=== PATIENT | female | born 1935 | race Caucasian/White ===

== ENCOUNTER 2016-11-28 05:33 | Emergency (ER) | payer MEDICARE, OTHER ==
[~2016-11-28] VITALS: Ht 162.6 cm; Wt 51.8 kg
[2016-11-28 05:45] VITALS: BP 108/65; PULSE 84; RESP 17; O2SAT 89
--- NOTE | 2016-11-28 06:04 | ED.REPORT ---
HPI-Trauma Minor / Fall Date of Service Nov 28, 2016 ED Provider: Dung Luis MD The patient is a 81 year old female with a hx of GERD who presents to the ED via EMS from [facility] after a ground level fall with a hematoma above the right eyebrow and right elbow. She was getting up in the morning to use the restroom when she tripped and fell over. She does not report of any other associated injuries and did not lose consciousness when she fell. She is able to move all four extremities and does not have any pain. Pt states that she , "didn't want to come here in the first place, but they made her come." She is wearing a neck collar for comfort due to a neck injury she sustained a year ago. She is not on anticoagulants. Nursing Notes Stated Complaint: GLF Chief Complaint: Multiple Trauma/Fall Nursing Notes Reviewed: Yes General Time Seen by MD: 06:03 Chief Complaint Fall Hx Obtained From: Patient Arrived By: Ambulance Onset Occurred: Just prior to arrival Symptom Duration: Since onset Caused by: Fall on ground Context: Occurred at: Home injury Location: Elbow right Severity: Current: No pain currently Recent Healthcare: No recent doctor visit, No recent hospitalization Similar Sx Previous: No Risk Factors Head CT Imaging Inclusion Criteria: >/= 16 yo age GCS of 14 OR 15 Non Pentrating Injury Presentation w/in [address] Indicated For: >/= 60 yrs AgeNo Coagulopathy, No ETOH/Drug Intoxication, No Focal Neuro Deficit, No GCS <15, No Headache, No Post Trauma Seizure, No Post Traumatic Amnesia, No Short Term Memory Loss, No Trauma - Clavicle & Up, No Vomiting, No WITH Loss of Conciousness Past Medical History Past Medical History Reports: GERD Past Surgical History neck fracture and surgery Oct 2015 Smoking History Unknown if Ever Smoker Social History Other Social History: Lives in correction Ambulatory Status Independent Review of Systems Musculoskeletal: Denies: Extremity pain Skin: Reports Bruising (hematoma above right eyebrow and on right upper condyle ) Neurologic: Denies: Change LOC Complete sys rev & neg: except as marked. Physical Exam Initial Vital Signs Vital Signs (First) Date Time Temp Pulse Resp B/P Pulse Ox O2 Delivery O2 Flow Rate FiO2 11/28/16 05:45 36.8 84 17 108/65 89 Room Air Initial VS: Reviewed ENT: Mucous membranes moist, Conjunctiva normal, No scleral icterus Respiratory: Breath sounds normal, Clear to auscultation, No respiratory distress Cardiovascular: Regular rate & rhythm, Heart sounds normal, Intact distal pulses Abdomen / GI: Soft, Non-tender, No guarding, No rebound, No distention Back: No CVA tenderness Skin: Warm, Dry, No cyanosis Neurologic: Alert, Oriented, Nonfocal Psychiatric: Mood/affect normal, Behavior normal, Normal thought content General/Constitutional: Awake, Alert, Well appearing, Cooperative, Not toxic appearing oriented Neck: Atraumatic, No swelling, Non-tender neck collar from a neck fracture/injury she sustained in October 2015 Head / Eyes: Normocephalic, PERRL, EOMI hematoma above right eyebrow Upper Extremity / MS: Full range of motion, No swelling, Non-tender hematoma on right upper condyle with normal ROM Re-Eval/Medical Decision Counseled Regarding: Diagnosis, Lab results, Need for follow-up, When/why to return to ED Discharge & Departure Impression: Primary Impression: Fall from ground level Additional Impressions: Contusion of right elbow Encounter type: initial encounter Qualified Code: S50.01XA - Contusion of right elbow, initial encounter Contusion of forehead Encounter type: initial encounter Qualified Code: S00.83XA - Contusion of other part of head, initial encounter Disposition: Home Patient Instructions: Fall Prevention for Older Adults (GEN) Additional Instructions: No dangerous injury identified. Return to the emergency department for fainting , uncontrolled vomiting or altered level of consciousness. Referrals: Aditya Nguyễn MD (PCP) Scribe Attestation Portion of this note were transcribed by Dileep Boone. I, Dr. Luis, personally performed the history, physical exam, and medical decision-making: I reviewed and confirmed the accuracy for the information in the transcribed note. Signed by: harmony Farfan, 11/28/16 0622 copies to: Aditya Nguyễn MD, Kirk H MD Nov 28, 2016 06:04 DILEEP BOONE Nov 28, 2016 06:23
[2016-11-28 07:03] VITALS: BP 128/74; PULSE 84; RESP 18; O2SAT 96
[2017-02-26] MEDS ORDERED: DXM4T TUBE (16:36)
[2017-02-26] MEDS ORDERED: SCOP1PAT TD (16:56)
== END 2016-11-28 07:06 | disposition home or self-care (01) ==
LOC: SED 05:33
DX: S50.01XA Contusion of right elbow, initial encounter (principal); S00.83XA Contusion of other part of head, initial encounter; W01.0XXA Fall on same level from slipping, tripping and stumbling without subsequent striking against object, initial encounter; Y93.89 Activity, other specified; Y92.122 Bedroom in nursing home as the place of occurrence of the external cause; Y99.8 Other external cause status; K21.9 Gastro-esophageal reflux disease without esophagitis

== ENCOUNTER 2017-02-03 15:28 | Inpatient (IN) | payer MEDICARE, OTHER ==
[~2017-02-03] VITALS: Ht 162.6 cm; Wt 49.7 kg
[2017-02-03] VITALS (7 sets, daily range): BP systolic 99–108; BP diastolic 48–66; PULSE 86–96; RESP 10–20; O2SAT 97–99
--- NOTE | 2017-02-03 15:41 | ED.REPORT ---
HPI-Dyspnea / Wheezing Date of Service Feb 03, 2017 ED Provider: Beto Bray MD Patient is a 81 year old female who presents to the ED via EMS complaining of low O2 stats at [facility]. She is normally on 3L via nasal cannula but was only at 78% saturation today. 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 She denies chest pain, cough, or any other symptoms. She arrived at [facility] 4 days ago from [facility] with oxygen. She had never been on oxygen previously. 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 Physical Exam Initial Vital Signs Vital Signs (First) Date Time Temp Pulse Resp B/P Pulse Ox O2 Delivery O2 Flow Rate FiO2 02/03/17 15:31 36.8 88 10 101/48 97 Non-Rebreather 10 Initial VS: Reviewed Head / Eyes: Atraumatic, Normocephalic Skin: Warm, Dry Neurologic: Alert, Oriented, Nonfocal Psychiatric: Mood/affect normal, Behavior normal, Normal thought content General/Constitutional: Awake, Alert, Well developed Trauma - Neck Specific: Positive: Immobilized - C Collar C1 [facility] Respiratory / Chest: Breath sounds = bilat Coarse breath sounds bilat. O2 100% on 9L Cardiovascular: Heart rate NL, Regular rhythm, Heart sounds NL, No murmurs Abdomen: Soft, Non-tender Interpretation & Diagnostics Lab Results Interpretation Result Diagram: 02/03/17 1603 02/03/17 1603 Test 02/03/17 16:03 02/03/17 16:28 02/03/17 16:35 White Blood Count 9.6th/mm3 (3.8-10.1) Red Blood Count 3.09mil/mm3 (3.90-5.20) Hemoglobin 9.6g/dL (12.0-15.6) Hematocrit 32.2% (35.0-46.0) Mean Corpuscular Volume 104.2fL (81-100) Mean Corpuscular Hemoglobin 31.1pg (27.0-35.0) Mean Corpuscular Hemoglobin Concent 29.8% (32.0-37.0) Red Cell Distribution Width 17.7% (12.3-15.4) Platelet Count 289bil/L (150-400) Neutrophils (%) (Auto) 77.7% (40-74) Lymphocytes (%) (Auto) 10.2% (14-46) Monocytes (%) (Auto) 10.3% (4-12) Eosinophils (%) (Auto) 1.4% (0-5) Basophils (%) (Auto) 0.2% (0-3) Prothrombin Time 9.7sec (8.1-12.5) Prothromb Time International Ratio 0.91ratio D-Dimer 1.44mg/L FEU (<0.50) Sodium Level 139mEq/L (134-144) Potassium Level 5.1mEq/L (3.5-5.2) Chloride Level 99mEq/L (97-108) Carbon Dioxide Level 30mmol/L (18-29) Blood Urea Nitrogen 32mg/dL (8-27) Creatinine 0.72mg/dL (0.57-1.00) Estimat Glomerular Filtration Rate 112mL/min (>59) Glucose Level 107mg/dL (60-99) Calcium Level 12.0mg/dL (8.5-10.1) Total Bilirubin 0.3mg/dL (0.0-1.2) Aspartate Amino Transf (AST/SGOT) 18U/L (0-50) Alanine Aminotransferase (ALT/SGPT) 11U/L (0-32) Alkaline Phosphatase 87U/L (25-165) Troponin T < 0.010ug/L (0.0-0.011) Pro-B-Type Natriuretic Peptide 279.4pg/mL (0-738) Total Protein 6.2g/dL (6.4-8.4) Albumin 3.6g/dL (3.4-5.0) Urine Color Yellow (YELLOW) Urine Appearance Clear (CLEAR,HAZY) Urine pH 6.0 (5.0-8.0) Urine Specific [place] 1.015 (1.003-1.035) Urine Protein Negativemg/dL (NEG,TRACE) Urine Glucose (UA) Negativemg/dL (NEGATIVE) Urine Ketones Negativemg/dL (NEGATIVE) Urine Occult Blood Negative (NEGATIVE) Urine Nitrite Negative (NEGATIVE) Urine Bilirubin Negative (NEGATIVE) Urine Urobilinogen Normalmg/dL (NORMAL) Urine Leukocyte Esterase Negative (NEGATIVE) Urine RBC 0-2/hpf (0-2) Urine WBC 0-5/hpf (0-5) Urine Epithelial Cells None/hpf (NONE-MOD) Urine Crystals None seen (NONE SEEN) Urine Bacteria Few/hpf (NONE-FEW) Urine Hyaline Casts None/lpf (NONE) Urine Granular Casts None seen (NONE SEEN) Urine Waxy Casts None seen (NONE SEEN) Urine Red Blood Cell Casts None seen (NONE SEEN) Urine White Blood Cell Casts None seen (NONE SEEN) Urine Mucus None seen (None Seen) Urine Trichomonas None seen (NONE SEEN) Urine Yeast None (NONE SEEN) Urinalysis Comment None Urine Culture Reflexed Not indicated Lactic Acid Level 1.1mmol/L (0.4-2.0) ECG Interpretation ECG Interpretation: sinus rate [address], T changes Time: 16:19 Interpreted by: ED physician X-Ray Chest Interpretation Chest Xray Interpretation: IMPRESSION: Left basilar atelectasis versus pneumonia. Dictated by: Nadege Alvarado MD, PhD on 02/03/2017 at 16:07 Approved by: Nadege Alvarado MD, PhD on 02/03/2017 at 16:09 View: Portable, 1 view Interpretation / Wet Read by: Interpret - Radiologist Re-Eval/Medical Decision Med Decision/Clinical Course 81-year-old female history of dementia, C1 fracture in cervical collar, recent ependymoma resection two weeks ago at outside hospital, PEG tube presenting with oxygen saturations in the mid 70s on oxygen at the nursing facility. Patient reportedly arrived from outside hospital [facility] to senior care facility four days ago on oxygen and has required 3 L last few days. This afternoon she was noted to have oxygen saturations in the high 70s on 3 L. She reportedly had not been on oxygen at senior care facility prior to being admitted to outside hospital three weeks ago. X-ray questionable pneumonia. She has contrast allergy and therefore cannot perform CT scan to rule out PE. We will admit to hospitalists on broad-spectrum antibiotics to cover for hospital-acquired pneumonia.. We will hold off on anticoagulation at this time given recent brain surgery pending VQ scan. Re-Evaluation/Progress : Time of Eval: 17:04 Re-Evaluation/Progress Note: Discussed plan for admission. Patient understands and agrees with plan. All questions addressed at this time. Consultation : Referral / Consult Name: Eliceo Victoria Consulted With: Hospitalist Call Returned at: 17:16 Bush Regenerator: Will see patient, Agrees with eval, Agrees with plan, Accepts admit Note: Discussed pt. case. Accepts admit. Requesting CT angio Counseled Regarding: Diagnosis, Lab results, Need for admission Discharge & Departure Impression: Primary Impression: Pneumonia Pneumonia type: due to unspecified organism Laterality: unspecified laterality Lung location: unspecified part of lung Qualified Code: J18.9 - Pneumonia, unspecified organism Disposition: ADMITTED TO HOSPITAL Referrals: Aditya Nguyễn MD (PCP) Scribe Attestation Portions of this note were transcribed by Joceline dAan. I, Dr. Bray personally performed the history, physical exam and medical decision-making; I reviewed and confirmed the accuracy of the information in the transcribed note. Signed by: Joceline Adan 02/03/17, 7020 copies to: Aditya Nguyễn MD, Ben M MD Feb 03, 2017 15:41 JOCELINE ADAN Feb 03, 2017 15:56
[2017-02-03 16:10] LABS: BASOPHILS % (AUTO) 0.2 % (0-3); EOSINOPHILS % (AUTO) 1.4 % (0-5); MONOCYTES % (AUTO) 10.3 % (4-12); Mean Corpuscular Hemoglobin 31.1 pg (27.0-35.0); Mean Corpuscular Volume 104.2 fL (81-100); NEUTROPHILS % (AUTO) 77.7 % (40-74); Platelet Count 289 bil/L (150-400)
--- NOTE | 2017-02-03 16:10 | DRSVH ---
PROCEDURE: X-RAY CHEST ONE VIEW, PORTABLE ([id number]) INDICATIONS: dyspnea TECHNIQUE: One view of the chest was acquired. COMPARISON: None. FINDINGS: Surgical changes and devices: SERVICE ADMINISTRATOR shunt is intact where visualized. Pigtail catheter projects over t he left upper quadrant of the abdomen. Surgical clips noted left upper quadrant of the abdomen. Lungs and pleura: No pleural effusions or pneumothorax. Increased opacification noted in left lung b ase which could represent atelectasis versus pneumonia. Mediastinum: Mediastinal contours appear normal. Heart size is normal. Bones and chest wall: No suspicious bony lesions. Overlying soft tissues appear unremarkable. IMPRESSION: Left basilar atelectasis versus pneumonia. Dictated by: Nadege Alvarado MD, PhD on 02/03/2017 at 16:07 Approved by: Nadege Alvarado MD, PhD on 02/03/2017 at 16:09
[2017-02-03 16:41] LABS: APPEARANCE,URINE CLEAR (CLEAR,HAZY); COLOR,URINE YELLOW (YELLOW); OCCULT BLOOD,URINE NEGATIVE (NEGATIVE); UROBILINOGEN,URINE NORMAL (NORMAL)
[2017-02-03 16:58] LABS: TROPONIN T < 0.010 ug/L (0.0-0.011)
[2017-02-03 17:08] LABS: D-Dimer 1.44 mg/L FEU (<0.50); INR 0.91 ratio
[2017-02-03] MEDS ORDERED: levoFLOXacin Inj 750 MG in IV Premix 1 EACH IV ONE (17:35)
[2017-02-03] MEDS ORDERED: Vancomycin Dose per Pharmacist XX ONE (17:35)
[2017-02-03] MEDS ORDERED: Cefepime Inj 2 GM in IV Premix 1 EACH IV ONE (17:35)
[2017-02-03] MEDS ORDERED: Ondansetron 2 mg/mL 2 mL Inj IVPUSH PRN ×2 (17:40→19:30)
[2017-02-03] MEDS ORDERED: Alum-Mag Hydrox-Simeth 30 mL Suspension PO PRN ×2 (17:40→19:30)
[2017-02-03] MEDS ORDERED: Vancomycin Inj 1,000 MG in IV Premix 1 EACH IV ONE (18:00)
--- NOTE | 2017-02-03 19:38 | PCM.HPMED ---
Subjective Date of Service Feb 03, 2017 Primary Provider: Admitting Physician: Eliceo Victoria Primary Care Physician: Aditya Nguyễn MD Attending Physician: Eliceo Victoria Admit Status: From the Emergency Department, [facility] Telemetry Chief Complaint: Shortness of breath History of Present Illness: Ms. 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 She was admitted for evaluation and treatment of her symptoms, including the possibility of healthcare-acquired pneumonia, PE, or aspiration. Hospital day one. At time of initial interview with patient, she denied any shortness of breath, fever, chills, nausea, vomiting, chest pain, generalized pain. When asked if she knew where she was, she replied [facility]. When asked the date, she replied December "something" 2016. When asked her location prior to this hospital admission, she could not recall she was at [facility]. She does recall her / [facility] experience, and says she "broke [her] neck." She is somewhat conversant, much of her history is obtained from chart review from records provided from /[facility]. records indicate that she was on approx 3L O2 therapy, with no previous history of oxygen use at home prior to that admission. She was recently hospitalized at [facility] from -01/29/17 for C1 fracture secondary to ground-level fall 09/2016 status post fusion, dysphagia, failure to thrive, and then transferred to [facility] at discharge. During her time at , she received her spinal fusion, in addition to PEG. Per documentation and transfer, patient was to follow-up at [facility] neurosurgery on 02/21/17. Other recommendations included: Avoidance of direct water pressure on incision, but showering and so principles permissible with Pat dry, encouragement to mobilize with the weight lifting restriction of 5-10 pounds for the next 2-6 weeks, no bending from the waist, only bending from the knees, in addition, no twisting for the back or neck. Tube feed care daily with daily dressing changes with a diet of the Jevity 50 mL per hour continuous with free water boluses 3 times a day of 300 mL. In the ED, temp 36.8, pulse 88, respiratory rate 10, blood pressure 101/48, 97% on non-breather at 10 L; initial labs revealed WBC 9.6, hemoglobin 9.6, platelets 289; creatinine 0.72, lactic acid 1.1, albumin 3.6; d-dimer 1.44; UA obtained which revealed negative leukocyte esterase, negative nitrites, negative for occult blood, few bacteria. Not sent for culture. Initial therapies included Vanco, cefepime, and levofloxacin. She was transferred to [facility] in stable condition on oxymask. Review of Systems: Complete ROS obtained; pertinent positives and negatives as noted in history of present illness Allergies Coded Allergies: Contrast Media (Verified Allergy, Unknown, 02/03/17) Penicillins (Verified Allergy, Unknown, 02/03/17) quinine (Verified Allergy, Unknown, 02/03/17) Home Medications Medication list from [facility] discharge summary: Acetaminophen 160 mg/5 mL oral liquid 640 mg every 6 Citalopram 20 mg via feeding tube daily Fluconazole 150 mg via G-tube once to be given 02/01 if Dalia is present Gabapentin 200 mg via feeding tube every 8 hours Heparin 5000 units subcutaneous every 8 hours Methylphenidate 5 mg twice daily via feeding tube at 0700 and 1400 daily Riluzole 50 mg via feeding tube every 12 hours to complete a 28 day course DuoNebs every 6 as needed Bisacodyl rectal suppositories as needed Oxycodone 5 mg every 4 hours as needed for pain via G-tube Simethicone 80 mg via G-tube 3 times daily as needed PMH Ependymoma status post resection and radiation treatments 6 Hydrocephalus Waldenstrom macroglobulinemia Ground-level fall Altered mental status C1 fracture status post fusion Acute blood loss anemia Dysphasia Depression Surgical History Right frontal ventriculostomy, posterior fossa craniectomy with C1 laminectomy for radical excision of fourth ventricle tumor-01/2016 Right frontal ONLINE COMMUNITY MANAGER shunt, strata valve 09/2016 Hysterectomy Appendectomy Comminuted anterior C1 fracture status post occiput to C2 PSIF Gastrostomy tube placement Family History Denies any family history of cancers/malignancies Social History Hx Alcohol Use: No Hx Substance Use: No Smoking Status: Never Smoker Living Arrangement: with Family (At [facility] currently; [place] with ) Exam Vital Signs Vital Sign - Last Date Time Temp Pulse Resp B/P Pulse Ox O2 Delivery O2 Flow Rate FiO2 02/03/17 18:43 36.5 94 17 105/59 98 Simple Mask 6 Exam General: Patient is alert, and somewhat oriented, she is able to accurately report that she is in a hospital setting, although she was unaware of [facility] and not [facility] as she had stated; no acute distress HEENT: Atraumatic, EOMI, mild conjunctival pallor, mucous membranes moist; Oxymask in place Neck: Cervical brace in place, this was not removed for examination Cardiac: Regular rate and rhythm examination without any murmurs Respiratory: Adequate airflow all yin, with slight crackles noted bilateral bases left greater than right Abdomen: Soft, nontender, nondistended; PEG in place with bandages clean/dry/ intact MSK: Patient able to move 5 out of 5 extremities against gravity Pulses: Radial equal and bilateral; dorsalis pedis equal and bilateral Extremities: No edema present Skin: Warm and dry Neuro: Appears to be grossly intact, able to follow commands; speech muffled by placement of oxygen mask Psych: Appropriate answers to questions, but patient unable to recall many details Lab and Diagnostics Result Diagram: 02/03/17 1603 02/03/17 1603 Assessment & Plan Ms. 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 She was admitted for evaluation and treatment of her symptoms, including the possibility of healthcare-acquired pneumonia, PE, or aspiration. Hospital day one. Acute on chronic hypoxemic respiratory failure, present on admission. Ongoing - Reports state: 3L continuous since DC from /[facility] - Req'd 10L non-rebreather in ED to achieve sats 97% - Treat underlying causes - DDx: PE, healthcare or community acq'd PNA, aspiration PNA, PTX - CXR 02/03: Left basilar atelectasis vs PNA Suspected PNA, acute, present on admission. Under evaluation - Patient afebrile, WBC 9.6 at time of admission - CXR 02/03: Left basilar atelectasis versus pneumonia - PCT for admit pending - BCx obtained - ABx in ED: vanco, levo, cefepime; pt has PCN allergy - Abx continued: vanco, levo, cefepime - Strep pneu Ur, Legionella Ur, PCT, MRSA swab - CXR in am Elevated d-dimer, likely acute, present on admission. Under therapy - On admit: d-dimer 1.44 - CC: Acute onset SOB - Reported allergy to contrast; no CTA obtained at admit; pt has contrast allergy - De-sensitization protocol initiated - CTA once completed - Heparin PE protocol ordered at time of admission - Stable at time of admission, no stat echo req'd History of dysphagia s/p PEG placement. Presumed stable - Dietary consultation for tube feeding recs - NPO - Swallow eval to assess function; risk of aspiration Recent comminuted C1 fracture s/p repair secondary to GLF, chronic. Presumed stable - Patient in brace at time of arrival; remains - Records in chart from /[facility] - PT eval; recs in chart, including weight limitations of 5-10 pounds, no bending of back, neck; okay to bend at knees; please see chart for details Goals of care. - POLST provided at time of admission: DNR/DNI if found to have no pulse and is not breathing, with full treatment otherwise, including intubation, mechanical ventilation, and cardioversion if the patient has pulse and/or is breathing - Attempt to remedy illness; box checked for full treatment, which includes intensive care - POLST was signed by Walt Awan, 10/25/16 PRN: Fever/bowel/antiemetic/pain DVT: Hep PE gtt Diet: via PEG, per dietary; NPO at this time GI: Not indicated Code: DNR/DNI; POLST in chart Patient status: Due to severity present symptoms, likely course of care, and risk of adverse event, patient was admitted as inpatient status with anticipated length of stay greater than 2 midnights Pain Evaluation: Adequate Pain Control GI Prophylaxis: H2 subhash VTE Prophylaxis: Other Resuscitation Status: DNR/DNI:Do Not Resuscitate/Intubate Attending Statement The patient was seen and examined together with Dr. Perez on 02/03 and I agree with the history, exam and plan as outlined in the note above. Kathryn Perez DO Feb 03, 2017 19:38 Clay Melton MD Feb 04, 2017 01:50
[2017-02-03] MEDS ORDERED: Heparin 5,000 Unit/mL Inj IVPUSH PRN (20:05)
[2017-02-03] MEDS ORDERED: Heparin 5,000 Unit/mL Inj IVPUSH ONE (20:05)
[2017-02-03] MEDS ORDERED: diphenhydrAMINE 50 mg Capsule PO ONE (20:05)
[2017-02-03] MEDS ORDERED: Albuterol 2.5 mg/3 mL Inhalation Solution NEB PRN (20:35)
[2017-02-03] MEDS: Albuterol-Ipratropium 3 mL Inhalation Solution NEB SCH (20:57)
--- NOTE | 2017-02-03 21:17 | PCM.PHAPRO ---
Progress Date of Service: Feb 03, 2017 Shortness of breath Dx: PNA PMH: ventricle ependymoma, hydrocephalus, macroglobulinemia vancomycin trough goal 15-20 start vancomycin 1gm IV q24h draw next trough at 1930 on 02/06 per pharmacy Richard Perez PharmD Richard Perez Feb 03, 2017 21:17
[2017-02-03] MEDS: 0.9% Sodium Chloride 1,000 ML IV SCH (21:49)
[2017-02-03] MEDS: Heparin 25K Unit/500mL 0.45 NS 25,000 UNIT in IV Premix 1 EACH IV SCH (21:59)
--- NOTE | 2017-02-03 22:09 | NUR ---
Admission Patient admitted to [facility] 2005 at 2000. On 6L oxymask with IV antibiotics infusing. Placed on telemetry. Heparin infusion initiated per DVT/PE protocol. Patient denies shortness of breath or discomfort. Continue to monitor.
[2017-02-04] VITALS (13 sets, daily range): BP systolic 98–112; BP diastolic 44–68; PULSE 76–95; RESP 16–20; O2SAT 93–98
[2017-02-04] MEDS ORDERED: METH5TAB88 PO (00:35)
[2017-02-04] MEDS ORDERED: CHOL1CRY2 PEG (00:35)
[2017-02-04] MEDS ORDERED: OXYC-474 PEG (00:35)
[2017-02-04] MEDS ORDERED: GUAI200L3 PEG (00:35)
[2017-02-04] MEDS ORDERED: ALBU2.5V4 INHALATION (00:35)
[2017-02-04] MEDS ORDERED: O INJ (00:35)
[2017-02-04] MEDS ORDERED: ACET160S PEG (00:35)
[2017-02-04] MEDS ORDERED: GABA250S2 PEG (00:35)
[2017-02-04] MEDS ORDERED: SENN-133 PEG (00:35)
[2017-02-04] MEDS ORDERED: SIME80TA53 PEG (00:35)
[2017-02-04] MEDS ORDERED: CITA20TA PEG (00:35)
[2017-02-04] MEDS ORDERED: RILU50TA PEG (00:35)
[2017-02-04] MEDS: Cefepime Inj 2 GM in IV Premix 1 EACH IV SCH ×2 (01:12→10:21)
[2017-02-04] MEDS: Sodium Chloride LOK Flush 10 mL Syringe IVFLUSH SCH ×3 (01:12→16:30)
[2017-02-04 04:18] LABS: BASOPHILS % (AUTO) 0.2 % (0-3); EOSINOPHILS % (AUTO) 0.4 % (0-5); Mean Corpuscular Hemoglobin 30.9 pg (27.0-35.0); Mean Corpuscular Volume 102.4 fL (81-100); NEUTROPHILS % (AUTO) 86.6 % (40-74); Platelet Count 292 bil/L (150-400)
[2017-02-04 05:21] LABS: Phosphorus 3.9 mg/dL (2.5-4.9)
[2017-02-04] MEDS: predniSONE 20 mg Tablet PO SCH ×3 (05:56→18:05)
[2017-02-04] MEDS: Albuterol-Ipratropium 3 mL Inhalation Solution NEB SCH ×4 (06:15→20:10)
[2017-02-04] MEDS: Vancomycin Dose per Pharmacist XX SCH (08:30)
[2017-02-04] MEDS: levoFLOXacin Inj 750 MG in IV Premix 1 EACH IV SCH (08:45)
--- NOTE | 2017-02-04 08:55 | NUR ---
NUTRITION CONSULT Assess: 81 YO F admitted with pneumonia. Pt has PEG tube in place for dysphagia and failure to thrive. Consult received to initiate enteral feedings. PMHX: Ependymoma s/p resection + radiation, hydrocephalus, Waldenstrom macroglobulinemia, GLF, AMS, C1 fx, dysphagia, failure to thrive, PEG tube placement, depression. DIET: NPO. HOME TF: Jevity 1.2 via PEG @ continuous rate of 50 ml/hr providing 1380 kcal, 64 g protein. Fluid flush of 3 bolus of 300 ml. LABS: BUN 31, Glu 103, Ca 11.6, Alb 3.3 MEDICATIONS: Reviewed. Prednisone. GI: 3 BM 02/04. SKIN: No issues noted. ANTHROPOMETRICS: 48.9 kg, BMI 18.5 kg/m2, Admit wt: 48.9 kg. ESTIMATED NEEDS: Calories: 4510-6098 kcal/day (25-30 kcal/kg BW) Protein: 1.0-1.2 g/day (49-59 g/day) NUTRITION DIAGNOSIS: 1) Chew/Swallow difficulty related to dysphagia as evidenced by need for PEG for nutrition. INTERVENTION: 1) Recommend enteral feeding of Jevity 1.5 starting at 25 ml/hr, once tolerance established, advance 10 ml q 6 hr to goal rate of 40 ml/hr. At goal TF will provide 1380 kcal, 59 g protein; meeting 100% of calorie/protein needs. Orders placed in chart. MONITOR/EVALUATE: NPO status, TF tolerance/advance, labs, GI/nutrition status. Follow per high nutrition risk guidelines.
--- NOTE | 2017-02-04 09:48 | DRSVH ---
PROCEDURE: X-RAY CHEST ONE VIEW, PORTABLE ([id number]) INDICATIONS: SOB TECHNIQUE: One view of the chest was acquired. COMPARISON: [facility], CR, XR CHEST 1VW (PORTABLE), 02/03/2017, 15:45. 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 Pigtail catheter projects over t he left upper quadrant of the abdomen. Surgical clips noted left upper quadrant of the abdomen. Lungs and pleura: No pneumothorax. Bibasilar air space opacities present, left greater than right. Small left pleural effusion.. Mediastinum: Mediastinal contours appear normal. Heart size is normal. Bones and chest wall: No suspicious bony lesions. Overlying soft tissues appear unremarkable. IMPRESSION: 1. Bibasilar atelectasis versus aspiration or pneumonia similar to prior exam. Correlate clinically. 2. Small effusions. Dictated by: Brian Gaytan [facility] Interpreted: Edgard Mosquera MD on 02/04/2017 at 9:47 Transcribed by: SILVIA on 02/04/2017 at 9:48 Approved by: Edgard Mosquera M.D. on 02/04/2017 at 10:52
--- NOTE | 2017-02-04 11:11 | NUR ---
CLOTH BRUSHING AND SUEDING SUPERVISOR consultation received. [facility] who reported that pt had been NPO with tube feedings. Pt was observed with wet gurgly phonation and a very weak, wet, volitional cough. Recommend pt remain NPO due to difficulty managing secretions. HOB should be at 30 degrees at all times, and NT suction may be warranted. Discussed with RN and RT. CLOTH BRUSHING AND SUEDING SUPERVISOR will sign off as no acute tx is warranted at this time.
--- NOTE | 2017-02-04 12:03 | PCM.PNMED ---
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 She is awake and responds to questions. She speaks in a soft voice. She denies dyspnea or pain. When asked if her breathing is close to her baseline she says yes. Exam Vital Signs Vital Sign - Last Date Time Temp Pulse Resp B/P Pulse Ox O2 Delivery O2 Flow Rate FiO2 02/04/17 08:57 93 02/04/17 08:30 Supplement Oxygen 02/04/17 08:29 16 93 4.00 02/04/17 07:50 36.7 98/60 Intake and Output 02/03/17 02/03/17 02/04/17 Cumulative From/Thru 15:00 23:00 07:00 02/03/17 15:31 - 02/04/17 06:33 Intake Total 746 ml 746 ml Balance 746 ml 746 ml Intake Oral 0 ml 0 ml IV Total 686 ml 686 ml Tube Irrigant 60 ml 60 ml # Voids 4 4 # Bowel Movements 3 3 Exam General: Frail-appearing elderly woman with hard collar neck brace awake and comfortable HEENT: sclerae anicteric, oral mucosa moist Neck: no apparent JVD Chest: Breathing is not labored, clear to auscultation Cardiac: S1S2, no murmur Abdomen: BS present, non-tender Extremities: No pitting edema Neuro: Alert, cranial nerves symmetric, seems to be somewhat contracted with increased motor tone bilaterally IVs and Medications Medications Reviewed: Medications were reviewed in detail Lab and Diagnostics Result Diagram: 02/04/1739902/04/170 Assessment & Plan # Acute on chronic hypoxemic respiratory failure, present on admission. Ongoing. Reports state: 3L continuous since DC from /[facility]. On admission she req'd 10L non-rebreather in ED to achieve sats 97%. DDx: PE, healthcare or community acq'd PNA, aspiration PNA. CXR 02/03: Left basilar atelectasis vs PNA - Oxygen support as needed - Treatment for presumed pneumonia # Suspected PNA, acute, present on admission. Under evaluation. Patient afebrile , with normal respiratory rate, WBC 9.6 at time of admission, there is increased to 14.1 in setting of prednisone therapy. CXR 02/03: Left basilar atelectasis versus pneumonia, procalcitonin elevated 0.17. - Antibiotic therapy for HCHP: vanco, levo, cefepime; pt has PCN allergy -Follow clinically and radiologically # Elevated d-dimer, likely acute, present on admission. Under therapy. On admit : d-dimer 1.44. High risk for false positive. Reported allergy to contrast; no CTA obtained at admit; pt has contrast allergy - De-sensitization protocol initiated - CTA once completed - Heparin PE protocol ordered at time of admission # History of dysphagia s/p PEG placement. Presumed stable - Dietary consultation for tube feeding recs - NPO - Swallow eval to assess function; risk of aspiration # Recent comminuted C1 fracture s/p repair secondary to GLF, chronic. Presumed stable - Patient in brace at time of arrival; remains - Records in chart from /[facility] - PT eval; recs in chart, including weight limitations of 5-10 pounds, no bending of back, neck; okay to bend at knees; please see chart for details # Goals of care. - POLST provided at time of admission: DNR/DNI if found to have no pulse and is not breathing, with full treatment otherwise, including intubation, mechanical ventilation, and cardioversion if the patient has pulse and/or is breathing - Attempt to remedy illness; box checked for full treatment, which includes intensive care - POLST was signed by Walt Awan, 10/25/16 PRN: Fever/bowel/antiemetic/pain DVT: Hep PE gtt Diet: via PEG, per dietary; NPO at this time GI: Not indicated Code: DNR/DNI; POLST in chart Patient status: Due to severity present symptoms, likely course of care, and risk of adverse event, patient was admitted as inpatient status with anticipated length of stay greater than 2 midnights Pain Evaluation: Adequate Pain Control GI Prophylaxis: H2 subhash VTE Prophylaxis: Other Resuscitation Status: DNR/DNI:Do Not Resuscitate/Intubate Time spent 35 minutes Kwadwo Garcia MD Feb 04, 2017 12:03
--- NOTE | 2017-02-04 13:40 | NUR ---
Evaluation completed. Please go to "Notes" then click on "Assessments and Notes" (bottom left corner of screen). Then select appropriate discipline tab on top of screen.
--- NOTE | 2017-02-04 15:27 | NUR ---
Social Work Note - Screening: D/A: The Pt is a a 81 y/o female that was admitted for pneumonia. Readmission Risk Score is 4. The Pt's PCP is MD Aditya Nguyễn and her primary insurance is Medicare with a [employer] supplement. EMR reviewed. SW attempted to meet with the Pt, Pt has dementia and it is difficult to obtain enough data for an initial assessment. Pt gave SW permission to contact Walt. SW placed call to [phone], left voicemail for assistance. The Pt is originally from [place] with family and uses 3L of O2. The Pt was sent to [facility] from [facility] where she had been transferred to on from [facility]. The Pt was seen at [facility] from 01/11-01/29 for C1 fracture secondary to ground-level fall 09/2016 status post fusion, dysphagia, failure to thrive, and then transferred to [facility] at discharge. PT eval completed, recommending discharge back to SNF via BLS. Pt discussed in morning rounds, likely to be hospitalized for at least three more days. SW will continue to follow and attempt to reach the Pt's again for additional information. P: The Pt is not medically stable for discharge, likely to discharge back to [facility] SNF when stable. PT eval completed, recommending SNF. SW will continue to follow and attempt to reach family for additional information. MEHDI Oconnell Construction Quality Control Manager MEHDI Salazar
[2017-02-04] MEDS: 0.9% Sodium Chloride 1,000 ML IV SCH ×2 (16:29→21:30)
[2017-02-04] MEDS ORDERED: diphenhydrAMINE 50 mg Capsule PO ONE (17:59)
--- NOTE | 2017-02-04 18:50 | NUR ---
End of shift Pt resting in bed, brief changed, patient turned. Awaiting nurse to place another IV for IV antibiotics as patient has IV Heparin infusing. Denies any needs or pain, call light within reach. 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
[2017-02-04] MEDS ORDERED: Vancomycin Inj 1,000 MG in IV Premix 1 EACH IV SCH (20:00)
--- NOTE | 2017-02-04 20:03 | DRSVH ---
PROCEDURE: CT ANGIO CHEST PULMONARY EMBOLISM ([id number]) INDICATIONS: SOB TECHNIQUE: After the administration of intravenous contrast, 2 mm thick sections acquired from the pulmonary api black to the posterior costophrenic angles. 3-dimensional maximum intensity projection (MIP) coronal a nd sagittal reformats were then acquired through the thorax. For radiation dose reduction, the follo wing was used: automated exposure control, adjustment of mA and/or kV according to patient size. COMPARISON: [facility], CR, XR CHEST 1VW (PORTABLE), 02/04/2017, 4:39. FINDINGS: Image quality: There is mild motion artifact. Pulmonary arteries: Pulmonary arteries demonstrate no intraluminal filling defects to suggest centra l pulmonary embolism. Evaluation of the distal subsegmental branches is limited by motion artifact. There is enlargement of the pulmonary arteries, with the main pulmonary artery measuring up to 3.1 c m suggesting pulmonary arterial hypertension. Lungs and pleura: There is consolidation within the bilateral lower lobes, right greater than left w ith heterogeneous attenuation of the consolidated lungs. There is fluid opacification within the rig ht bronchus intermedius as well as the right lower and middle lobe bronchi. There is also dependent filling defect within the trachea. There are small bilateral pleural effusions, right greater than l eft. There are a few scattered small groundglass nodules bilaterally measuring up to 6 mm on the rig ht on series 5 image 30. Mediastinum: Heart size is normal, without pericardial effusion. There are mildly prominent subcent imeter mediastinal and right hilar lymph nodes. Thoracic aorta is normal in caliber and enhancement. Esophagus is normal in caliber, without hiatal hernia. Bones and chest wall: No suspicious bony lesions. Ribs and thoracic spine appear intact throughout. There multiple small hypoattenuating nodules within the thyroid bilaterally measuring up to 1 cm on the right. They're mildly prominent subcentimeter right axillary and subpectoral lymph nodes. Abdomen: Visualized upper abdomen demonstrates a small cyst in the left hepatic lobe. IMPRESSION: 1. Bilateral lower lobe consolidation and small pleural effusions with mucosal opacification of the right basilar bronchi and trachea. The findings most likely represent aspiration pneumonia. However , followup is recommended to demonstrate resolution and exclude a central mass if clinically indicate d. 2. Small indistinct ground glass nodules bilaterally are likely inflammatory related to aspiration. Recommend attention on followup. 3. Mildly prominent mediastinal, right hilar, and right subpectoral lymph nodes also likely reactive . 4. No evidence of central pulmonary embolism. 5. Enlargement of the pulmonary arteries suggesting pulmonary arterial hypertension. Dictated by: Jae Pantoja M.D. on 02/04/2017 at 19:54 Approved by: Jae Pantoja M.D. on 02/04/2017 at 20:01
[2017-02-05] VITALS (12 sets, daily range): BP systolic 93–118; BP diastolic 43–69; PULSE 63–99; RESP 16–22; O2SAT 96–99
[2017-02-05] MEDS ORDERED: Cefepime Inj 2,000 MG in Dextrose 5% Minibag Plus 50 ML IV SCH ×2 (00:30→01:06)
[2017-02-05] MEDS: Sodium Chloride LOK Flush 10 mL Syringe IVFLUSH SCH ×3 (01:15→16:30)
[2017-02-05] MEDS: Heparin 25K Unit/500mL 0.45 NS 25,000 UNIT in IV Premix 1 EACH IV SCH (03:33)
--- NOTE | 2017-02-05 05:31 | NUR ---
Heparin Gtt DVT/PE Heparin running @ 19 , Ptt heparin 0415- 58.1, next draw @ 1015. Bedrest, Q2 turns , somewhat confused ,made comments that Geovanny was talking, saying guido. there wasn no one named Geovanny present. Tube feed running @ 140, Heparin @ 19/Kg/he, NS @ 80, also abx per order. Lung sounds diminished and equal. [id number]
[2017-02-05] MEDS: Albuterol-Ipratropium 3 mL Inhalation Solution NEB SCH ×4 (07:34→19:51)
[2017-02-05] MEDS: 0.9% Sodium Chloride 1,000 ML IV SCH ×2 (08:00→22:35)
[2017-02-05] MEDS: Vancomycin Dose per Pharmacist XX SCH (08:00)
[2017-02-05] MEDS: levoFLOXacin Inj 750 MG in IV Premix 1 EACH IV SCH (08:00)
[2017-02-05 08:40] LABS: Mean Corpuscular Hemoglobin 30.9 pg (27.0-35.0); Mean Corpuscular Volume 101.9 fL (81-100)
[2017-02-05 09:03] LABS: Phosphorus 2.5 mg/dL (2.5-4.9)
[2017-02-05] MEDS: Meropenem Inj 500 MG in 0.9% Sodium Chloride 50 ML IV SCH ×2 (09:36→17:21)
--- NOTE | 2017-02-05 10:18 | NUR ---
LIONEL Verbal consent from pt (Walt) who lives in [place] and does not travel often. MEHDI Salazar
--- NOTE | 2017-02-05 10:31 | NUR ---
Social Work Note: Initial Assessment Data& Assessment: EMR reviewed. SW spoke with pt via phone call as he lives on [address], CRISTINA role explained. Pt confirmed that pt has been at [facility] for rehab the last week. Pt explained that pt has been in and out of the hospital and rehab facility since . Pt has Medicare and [employer] insurance supplement and sees Aditya Nguyễn MD for primary care. Pt states that pt did not wear oxygen at baseline, but does use a FWW for ambulation assistance. PT is recommending pt return to SNF for continued rehab. Pt prefers pt return to [facility]. SW contacted Trinity from [facility] and confirmed they are able to accept her back when medically ready, access provided. Pt does have LTC insurance and does not have VA benefits. Pt states [facility] has copy of DPOA/Advance Directive paperwork on file. SW requested Trinity from [facility] fax over copy when possible for his chart. Pt denies any other needs at this time. SW to continue to follow if any needs arise. Plan: Anticipated discharge back to [facility] for continued rehab when medically ready. Pt denies any other needs at this time. SW to continue to follow if any needs arise. MEHDI Salazar Addendum: 02/05/17 at 1044 by JOSÉ MANUEL BASS Amended: Links added.
[2017-02-05] MEDS: Polyethylene Glycol (PEG) 17 Gm Powder PO PRN (11:18)
--- NOTE | 2017-02-05 16:07 | PCM.PNMED ---
Subjective Date of Service Feb 05, 2017 Subjective 81 year old woman with TORNADO CHASER shunt, recent comminuted anterior C1 fracture arthroplasty, chronic encephalopathy, failure to thrive, status post PEG placement, presented to [facility] via EMS from [facility] with reports of acute on chronic hypoxemic respiratory failure. She is awake and responds to questions, but minimal communication soft voice. She denies dyspnea or pain. When asked if her breathing is close to her baseline she says yes. Exam Vital Signs Vital Sign - Last Date Time Temp Pulse Resp B/P Pulse Ox O2 Delivery O2 Flow Rate FiO2 02/05/17 15:30 80 16 99 Nasal Cannula 3.50 02/05/17 12:33 36.5 93/53 Intake and Output 02/04/17 02/04/17 02/05/17 Cumulative From/Thru 15:00 23:00 07:00 02/03/17 15:31 - 02/05/17 06:15 Intake Total 50 ml 1503 ml 1756 ml 4055 ml Output Total 250 ml 250 ml Balance 50 ml 1253 ml 1756 ml 3805 ml Intake Oral 0 ml 0 ml 0 ml IV Total 1351 ml 1316 ml 3353 ml Tube Feeding 20 ml 122 ml 419 ml 561 ml Tube Irrigant 30 ml 30 ml 21 ml 141 ml Output Urine Total 250 ml 250 ml # Voids 1 4 9 # Bowel Movements 0 0 3 Exam General: Frail-appearing elderly woman with hard collar neck brace awake and comfortable HEENT: sclerae anicteric, oral mucosa moist Neck: no apparent JVD Chest: Breathing is not labored, clear to auscultation Cardiac: S1S2, no murmur Abdomen: BS present, non-tender Extremities: No pitting edema Neuro: Alert, cranial nerves symmetric, iincreased motor tone bilaterally, reflexes 3+ bilaterally IVs and Medications Medications Reviewed: Medications were reviewed in detail Lab and Diagnostics Result Diagram: 02/05/1782402/05/17824 X-Rays, CTs and MRIs PROCEDURE: CT ANGIO CHEST PULMONARY EMBOLISM ([id number]) IMPRESSION: 1. Bilateral lower lobe consolidation and small pleural effusions with mucosal opacification of the right basilar bronchi and trachea. The findings most likely represent aspiration pneumonia. However, followup is recommended to demonstrate resolution and exclude a central mass if clinically indicated. 2. Small indistinct ground glass nodules bilaterally are likely inflammatory related to aspiration. Recommend attention on followup. 3. Mildly prominent mediastinal, right hilar, and right subpectoral lymph nodes also likely reactive. 4. No evidence of central pulmonary embolism. 5. Enlargement of the pulmonary arteries suggesting pulmonary arterial hypertension. Dictated by: Jae Pantoja M.D. on 02/04/2017 at 19:54 PROCEDURE: X-RAY CHEST ONE VIEW, PORTABLE ([id number]) IMPRESSION: 1. Bibasilar atelectasis versus aspiration or pneumonia similar to prior exam. Correlate clinically. 2. Small effusions. Dictated by: Brina Gaytan RRA Interpreted: Edgard Mosquera MD on 02/04/2017 at 9: 47 PROCEDURE: X-RAY CHEST ONE VIEW, PORTABLE ([id number]) IMPRESSION: Left basilar atelectasis versus pneumonia Dictated by: Nadege Alvarado MD, PhD on 02/03/2017 at 16:07 . Assessment & Plan # Acute on chronic hypoxemic respiratory failure, present on admission. Ongoing. Reports state: 3L continuous since DC from /[facility]. On admission she req'd 10L non-rebreather in ED to achieve sats 97%. DDx: PE, healthcare or community acq'd PNA, aspiration PNA. CXR 02/03: Left basilar atelectasis vs PNA - Oxygen support as needed, wean as tolerated - Treatment for HCAP Aspiration pneumonia - Goal is to wean to her baseline 3 L O2 # Suspected PNA, acute, present on admission. Under evaluation. Patient afebrile , with normal respiratory rate, WBC 9.6 at time of admission, there is increased to 14.1 in setting of prednisone therapy. CXR 02/03: Left basilar atelectasis versus pneumonia, procalcitonin elevated 0.17. No effusion. Persistent leukocytosis after 2 days. - Antibiotic therapy for HCHP: discontinue vancomycin, levofloxacin and cefepime ; switch to meropenem monotherapy. - Difficult choices for oral antibiotic therapy due to PCN allergy - # Elevated d-dimer, likely acute, present on admission. Under therapy. On admit : d-dimer 1.44. High risk for false positive. Reported allergy to contrast; no CTA obtained at admit; pt has contrast allergy - De-sensitization protocol, CT angiogram completed, no pulmonary embolism - Continue heparin # History of dysphagia s/p PEG placement. Presumed stable - NPO, aspiration precaution - Swallow eval to assess function; risk of aspiration - Continue tube feeding # Recent comminuted C1 fracture s/p repair secondary to GLF, chronic. Presumed stable - Patient in brace at time of arrival; remains - Records in chart from /[facility] - PT eval; recs in chart, including weight limitations of 5-10 pounds, no bending of back, neck; okay to bend at knees; please see chart for details # Goals of care. - POLST provided at time of admission: DNR/DNI if found to have no pulse and is not breathing, with full treatment otherwise, including intubation, mechanical ventilation, and cardioversion if the patient has pulse and/or is breathing - Attempt to remedy illness; box checked for full treatment, which includes intensive care - POLST was signed by Walt Awan, 10/25/16 PRN: Fever/bowel/antiemetic/pain DVT: Lovenox Diet: via PEG, per dietary; NPO at this time GI: Not indicated Code: DNR/DNI; POLST in chart Patient status: She seems to be responding clinically pneumonia treatment with reduced oxygen need. May be ready for discharge to [facility] facility on 02/07, if leukocytosis is resolved and oxygen needs are at baseline. GI Prophylaxis: H2 subhash VTE Prophylaxis: Other Resuscitation Status: DNR/DNI:Do Not Resuscitate/Intubate Time spent 40 minutes Kwadwo Garcia MD Feb 05, 2017 16:07
--- NOTE | 2017-02-05 18:23 | NUR ---
Activity Pt responsive and answers some questions appropriately. Full assist to turn for pt does not help or try to move anything. Slept most of the day
[2017-02-06] VITALS (7 sets, daily range): BP systolic 98–115; BP diastolic 53–63; PULSE 64–78; RESP 12–20; O2SAT 97–100
[2017-02-06] MEDS: Sodium Chloride LOK Flush 10 mL Syringe IVFLUSH SCH ×2 (00:30→08:46)
[2017-02-06] MEDS: Meropenem Inj 500 MG in 0.9% Sodium Chloride 50 ML IV SCH ×2 (01:19→08:46)
--- NOTE | 2017-02-06 03:13 | NUR ---
Jevity/NS/ABX Jevity @ 40 Ml/hr. NS @ 80 Ml/hr, ABX as ordered, 3.5 L O2 per NC. Q 2 turns NPO , Bloos sugar checks Q6 . Chele SR-70 Addendum: 02/06/17 at 0354 by ANDREA LOPEZ RN Oriented to self, non-conversant .
[2017-02-06] MEDS: Albuterol-Ipratropium 3 mL Inhalation Solution NEB SCH ×2 (07:32→11:39)
--- NOTE | 2017-02-06 09:23 | PCM.PNMED ---
Subjective Date of Service Feb 06, 2017 Subjective Patient is not arousable or communicating. This may be baseline. Review of systems and subjective not obtainable. Exam Vital Signs Vital Sign - Last Date Time Temp Pulse Resp B/P Pulse Ox O2 Delivery O2 Flow Rate FiO2 02/06/17 08:55 36.9 78 12 98/53 98 Nasal Cannula 3.00 Intake and Output 02/05/17 02/05/17 02/06/17 Cumulative From/Thru 15:00 23:00 07:00 02/03/17 15:31 - 02/06/17 06:20 Intake Total 1598 ml 1484 ml 7137 ml Output Total 250 ml Balance 1598 ml 1484 ml 6887 ml Intake Oral 0 ml 0 ml 0 ml IV Total 1104 ml 1002 ml 5459 ml Tube Feeding 442 ml 1003 ml TPN/PPN 464 ml 464 ml Tube Irrigant 30 ml 40 ml 211 ml Output Urine Total 250 ml # Voids 2 3 14 # Bowel Movements 0 3 Exam Not arousable, but appears comfortable. She has a cervical collar on. Anicteric sclera. Lungs are clear with normal rate and effort Heart is regular without murmur gallop or rub Abdomen soft nontender, flat Extremities are free of edema. Skin is free of rash or lesions. IVs and Medications Medications Reviewed: Medications were reviewed in detail Lab and Diagnostics Result Diagram: 02/05/17 0825 02/06/17 0500 X-Rays, CTs and MRIs PROCEDURE: CT ANGIO CHEST PULMONARY EMBOLISM ([id number]) IMPRESSION: 1. Bilateral lower lobe consolidation and small pleural effusions with mucosal opacification of the right basilar bronchi and trachea. The findings most likely represent aspiration pneumonia. However, followup is recommended to demonstrate resolution and exclude a central mass if clinically indicated. 2. Small indistinct ground glass nodules bilaterally are likely inflammatory related to aspiration. Recommend attention on followup. 3. Mildly prominent mediastinal, right hilar, and right subpectoral lymph nodes also likely reactive. 4. No evidence of central pulmonary embolism. 5. Enlargement of the pulmonary arteries suggesting pulmonary arterial hypertension. Dictated by: Jae Pantoja M.D. on 02/04/2017 at 19:54 PROCEDURE: X-RAY CHEST ONE VIEW, PORTABLE ([id number]) IMPRESSION: 1. Bibasilar atelectasis versus aspiration or pneumonia similar to prior exam. Correlate clinically. 2. Small effusions. Dictated by: Brian Gaytan RRA Interpreted: Edgard Mosquera MD on 02/04/2017 at 9: 47 PROCEDURE: X-RAY CHEST ONE VIEW, PORTABLE ([id number]) IMPRESSION: Left basilar atelectasis versus pneumonia Dictated by: Nadege Alvarado MD, PhD on 02/03/2017 at 16:07 . Assessment & Plan # Acute on chronic hypoxemic respiratory failure, present on admission. Ongoing and improving. Reports state: 3L continuous since DC from [facility]. On admission she req'd 10L non-rebreather in ED to achieve sats 97%. DDx: PE, healthcare or community acq'd PNA, aspiration PNA. CXR 02/03: Left basilar atelectasis vs PNA - Oxygen support as needed, wean as tolerated - Treatment for HCAP Aspiration pneumonia - Goal is to wean to her baseline 3 L O2 She is improving. # Healthcare associated PNA, acute, present on admission. Under evaluation. Patient afebrile, with normal respiratory rate, WBC 9.6 at time of admission, there is increased to 14.1 in setting of prednisone therapy. CXR 02/03: Left basilar atelectasis versus pneumonia, procalcitonin elevated 0.17. No effusion. Persistent leukocytosis after 2 days. - Antibiotic therapy for HCHP: discontinue vancomycin, levofloxacin and cefepime ; switch to meropenem monotherapy. - Difficult choices for oral antibiotic therapy due to PCN allergy - We will discuss discharge planning with social work and neurovascular to see what options are available. # Elevated d-dimer, likely acute, present on admission. Under therapy. On admit : d-dimer 1.44. High risk for false positive. Reported allergy to contrast; no CTA obtained at admit; pt has contrast allergy - De-sensitization protocol, CT angiogram completed, no pulmonary embolism - Continue heparin, will discontinue. # History of dysphagia s/p PEG placement. Presumed stable - NPO, aspiration precaution - Swallow eval to assess function; risk of aspiration - Continue tube feeding # Recent comminuted C1 fracture s/p repair secondary to GLF, chronic. Presumed stable - Patient in brace at time of arrival; remains - Records in chart from [facility] - PT eval; recs in chart, including weight limitations of 5-10 pounds, no bending of back, neck; okay to bend at knees; please see chart for details # Goals of care. - POLST provided at time of admission: DNR/DNI if found to have no pulse and is not breathing, with full treatment otherwise, including intubation, mechanical ventilation, and cardioversion if the patient has pulse and/or is breathing - Attempt to remedy illness; box checked for full treatment, which includes intensive care - POLST was signed by Walt Awan, 10/25/16 PRN: Fever/bowel/antiemetic/pain DVT: Lovenox Diet: via PEG, per dietary; NPO at this time GI: Not indicated Code: DNR/DNI; POLST in chart Patient status: She appears to be approaching baseline. We will begin talking about [facility]. GI Prophylaxis: H2 subhash VTE Prophylaxis: Other VTE Mechanical Devices: Intermittant Pneumatic CD Resuscitation Status: DNR/DNI:Do Not Resuscitate/Intubate Tyrone Dowling MD Feb 06, 2017 09:23
--- NOTE | 2017-02-06 10:05 | NUR ---
NUTRITION FOLLOW-UP: Assess: 81 YO F admitted with pneumonia. Pt has PEG tube in place for dysphagia and failure to thrive. TF was started 02/04. They are currently running at goal and tolerated well. PMHX: Ependymoma s/p resection + radiation, hydrocephalus, Waldenstrom macroglobulinemia, GLF, AMS, C1 fx, dysphagia, failure to thrive, PEG tube placement, depression. DIET: NPO. HOME TF: Jevity 1.2 via PEG @ continuous rate of 50 ml/hr providing 1380 kcal, 64 g protein. Fluid flush of 3 bolus of 300 ml. CURRENT TF: Jevity 1.5 @ 40ml/hr providing 1380 kcal, 59 g protein; meeting 100% of calorie/protein needs. LABS: Na 148, Cl 118, Bun 32, Glu 118, Ca 10.6, Alb 3.2 MEDICATIONS: Reviewed. Prednisone. GI: 3 BM 02/04. SKIN: No issues noted. ANTHROPOMETRICS: 49.7 kg, BMI 18.8 kg/m2, Admit wt: 48.9 kg. ESTIMATED NEEDS: Calories: 9232-3123 kcal/day (25-30 kcal/kg BW) Protein: 50-60 g/day (1.0-1.2 g/day) NUTRITION DIAGNOSIS: 1) Chew/Swallow difficulty related to dysphagia as evidenced by need for PEG for nutrition.--PERSISTS INTERVENTION: 1) Continue current TF rate at goal MONITOR/EVALUATE: NPO status, TF, labs, GI/nutrition status. Follow per high nutrition risk guidelines.
--- NOTE | 2017-02-06 10:39 | PCM.DIMED ---
Discharge Instructions Date of Service Feb 06, 2017 Dates of Hospitalization Feb 03, 2017 at 18:02 Discharge Diagnosis Discharge Diagnosis # Acute on chronic hypoxemic respiratory failure, improved # Healthcare associated PNA, improved We will discuss discharge planning with social work and neurovascular to see what options are available. # Chronic dysphagia s/p PEG placement. Stable # Recent comminuted C1 fracture s /p repair secondary to GLF, chronic. Presumed stable - Patient in brace at time of arrival; remains - Records in chart from /[facility] - PT eval; recs in chart, including weight limitations of 5-10 pounds, no bending of back, neck; okay to bend at knees; please see chart for details #. Chronic encephalopathy. Stable #. Recent cervical fusion, stable # Goals of care. - POLST provided at time of admission: DNR/DNI if found to have no pulse and is not breathing, with full treatment otherwise, including intubation, mechanical ventilation, and cardioversion if the patient has pulse and/or is breathing - Attempt to remedy illness; box checked for full treatment, which includes intensive care - POLST was signed by Walt Awan, 10/25/16 Diet Other (resume tube feeds) Activity Other (resume previous activity orders with physical therapy.) Call your provider Fever or Chills, Shortness of breath, Other (cough) Patient Instructions She will be followed by [facility] the [facility]. Tyrone Dowling MD Feb 06, 2017 10:39
[2017-02-06] MEDS ORDERED: LEVO750T39 PO (10:43)
[2017-02-06] MEDS ORDERED: CLIN-78 PO (10:43)
[2017-02-06] MEDS: 0.9% Sodium Chloride 1,000 ML IV SCH (11:09)
[2017-02-06] MEDS: Polyethylene Glycol (PEG) 17 Gm Powder PO PRN (11:19)
--- NOTE | 2017-02-06 11:42 | NUR ---
arranged BLS transport at 2pm with [facility]. Advised CRISTINA.
--- NOTE | 2017-02-06 12:10 | NUR ---
Report called to Destiny at [facility]
--- NOTE | 2017-02-06 12:27 | NUR ---
Social Work Note: Discharge Data& Assessment: EMR reviewed. Per pt is medically ready to discharge to [facility] for continued rehab. Deana Awan is a 81 year old female admitted on 02/03/2017 for pneumonia. Per pt is medically improved and ready to discharge. PT continues to recommend SNF. Pt on P.O abx. SW spoke with pt regarding discharge, pt is glad pt is medically improved and ready to continue her rehab stay. SW spoke with [facility] and confirmed they are able to accept her back to their facility. Pt has PEGG tube and requires BLS transportation. Pt aware of transportation needs and if for some reason Medicare does not agree, they would be responsible for the bill. BLS transportation arranged for 2:00p.m. Pt denies any other needs. , RN, facility, pt and pt all updated and agreeable to plan. No other discharge needs identified. Plan: Per pt is medically ready to discharge to [facility] for continued rehab via BLS transportation arranged for 2:00p.m. Pt denies any other needs. , RN, facility, pt and pt all updated and agreeable to plan. No other discharge needs identified. MEHDI Salazar
[2017-02-06] MEDS ORDERED: METH5TAB88 PO (13:40)
--- NOTE | 2017-02-06 14:10 | NUR ---
Discharge pt discharged in stretcher with EMS transport at 1410. Pt stable and w/o verbal complaints. Paperwork provided to transport. IV removed by Jacy skinner RN w/o complication.
[2017-02-06] MEDS ORDERED: Vancomycin Serum Trough XX ONE (19:30)
--- NOTE | 2017-02-07 13:08 | PCM.DC.MED ---
Discharge Summary Date of Service Feb 06, 2017 Dates of Hospitalization Date of Hospital Admission Feb 03, 2017 at 18:02 Date of Discharge: Feb 06, 2017 Providers: Admitting Physician: Eliceo Victoria Primary Care Physician: Aditya Nguyễn MD Attending Physician: Eliceo Victoria Diagnosis at Time of Discharge Diagnosis at Time of Discharge # Acute on chronic hypoxemic respiratory failure, improved # Healthcare associated PNA, improved We will discuss discharge planning with social work and neurovascular to see what options are available. # Chronic dysphagia s/p PEG placement. Stable # Recent comminuted C1 fracture s /p repair secondary to GLF, chronic. Presumed stable - Patient in brace at time of arrival; remains - Records in chart from /[facility] - PT eval; recs in chart, including weight limitations of 5-10 pounds, no bending of back, neck; okay to bend at knees; please see chart for details #. Chronic encephalopathy. Stable #. Recent cervical fusion, stable # Goals of care. - POLST provided at time of admission: DNR/DNI if found to have no pulse and is not breathing, with full treatment otherwise, including intubation, mechanical ventilation, and cardioversion if the patient has pulse and/or is breathing - Attempt to remedy illness; box checked for full treatment, which includes intensive care - POLST was signed by Walt Awan, 10/25/16 Consultations None Procedures XRay, CTs & MRIs PROCEDURE: CT ANGIO CHEST PULMONARY EMBOLISM ([id number]) IMPRESSION: 1. Bilateral lower lobe consolidation and small pleural effusions with mucosal opacification of the right basilar bronchi and trachea. The findings most likely represent aspiration pneumonia. However, followup is recommended to demonstrate resolution and exclude a central mass if clinically indicated. 2. Small indistinct ground glass nodules bilaterally are likely inflammatory related to aspiration. Recommend attention on followup. 3. Mildly prominent mediastinal, right hilar, and right subpectoral lymph nodes also likely reactive. 4. No evidence of central pulmonary embolism. 5. Enlargement of the pulmonary arteries suggesting pulmonary arterial hypertension. Dictated by: Jae Pantoja M.D. on 02/04/2017 at 19:54 PROCEDURE: X-RAY CHEST ONE VIEW, PORTABLE ([id number]) IMPRESSION: 1. Bibasilar atelectasis versus aspiration or pneumonia similar to prior exam. Correlate clinically. 2. Small effusions. Dictated by: Brian Gaytan [facility] Interpreted: Edgard Mosquera MD on 02/04/2017 at 9: 47 PROCEDURE: X-RAY CHEST ONE VIEW, PORTABLE ([id number]) IMPRESSION: Left basilar atelectasis versus pneumonia Dictated by: Nadege Alvarado MD, PhD on 02/03/2017 at 16:07 . Cardiac Echo Impression None Brief History Ms. Awan is a 81 year old woman with a complicated medical history including fourth ventricle ependymoma status post resection complicated by hydrocephalus requiring BASEBALL PITCHER shunt, recent comminuted anterior C1 fracture status post occiput to C2 PSIF secondary to ground-level fall 09/28, and failure to thrive and dysphagia status post PEG placement, presented to [facility] via EMS from [facility] with reports of acute on chronic hypoxemic respiratory failure. She was admitted for evaluation and treatment of her symptoms, including the possibility of healthcare-acquired pneumonia, PE, or aspiration. Hospital day one. At time of initial interview with patient, she denied any shortness of breath, fever, chills, nausea, vomiting, chest pain, generalized pain. When asked if she knew where she was, she replied [facility]. When asked the date, she replied December "something" 2016. When asked her location prior to this hospital admission, she could not recall she was at [facility]. She does recall her / [facility] experience, and says she "broke [her] neck." She is somewhat conversant, much of her history is obtained from chart review from records provided from /[facility]. records indicate that she was on approx 3L O2 therapy, with no previous history of oxygen use at home prior to that admission. She was recently hospitalized at [facility] from -01/29/17 for C1 fracture secondary to ground-level fall 09/2016 status post fusion, dysphagia, failure to thrive, and then transferred to [facility] at discharge. During her time at , she received her spinal fusion, in addition to PEG. Per documentation and transfer, patient was to follow-up at [facility] neurosurgery on 02/21/17. Other recommendations included: Avoidance of direct water pressure on incision, but showering and so principles permissible with Pat dry, encouragement to mobilize with the weight lifting restriction of 5-10 pounds for the next 2-6 weeks, no bending from the waist, only bending from the knees, in addition, no twisting for the back or neck. Tube feed care daily with daily dressing changes with a diet of the Jevity 50 mL per hour continuous with free water boluses 3 times a day of 300 mL. In the ED, temp 36.8, pulse 88, respiratory rate 10, blood pressure 101/48, 97% on non-breather at 10 L; initial labs revealed WBC 9.6, hemoglobin 9.6, platelets 289; creatinine 0.72, lactic acid 1.1, albumin 3.6; d-dimer 1.44; UA obtained which revealed negative leukocyte esterase, negative nitrites, negative for occult blood, few bacteria. Not sent for culture. Initial therapies included Vanco, cefepime, and levofloxacin. She was transferred to [facility] in stable condition on oxymask. Hospital Course # Acute on chronic hypoxemic respiratory failure, present on admission. Ongoing and improving. Reports state: 3L continuous since DC from /[facility]. On admission she req'd 10L non-rebreather in ED to achieve sats 97%. DDx: PE, healthcare or community acq'd PNA, aspiration PNA. CXR 02/03: Left basilar atelectasis vs PNA - Oxygen support as needed, wean as tolerated - Treatment for HCAP Aspiration pneumonia - Goal is to wean to her baseline 3 L O2 She is improving. # Healthcare associated PNA, acute, present on admission. Under evaluation. Patient afebrile, with normal respiratory rate, WBC 9.6 at time of admission, there is increased to 14.1 in setting of prednisone therapy. CXR 02/03: Left basilar atelectasis versus pneumonia, procalcitonin elevated 0.17. No effusion. Persistent leukocytosis after 2 days. - Antibiotic therapy for HCHP: discontinue vancomycin, levofloxacin and cefepime ; switch to meropenem monotherapy. - Difficult choices for oral antibiotic therapy due to PCN allergy - We will discuss discharge planning with social work and neurovascular to see what options are available. # Elevated d-dimer, likely acute, present on admission. Under therapy. On admit : d-dimer 1.44. High risk for false positive. Reported allergy to contrast; no CTA obtained at admit; pt has contrast allergy - De-sensitization protocol, CT angiogram completed, no pulmonary embolism - Continue heparin, will discontinue. # History of dysphagia s/p PEG placement. Presumed stable - NPO, aspiration precaution - Swallow eval to assess function; risk of aspiration - Continue tube feeding # Recent comminuted C1 fracture s/p repair secondary to GLF, chronic. Presumed stable - Patient in brace at time of arrival; remains - Records in chart from /[facility] - PT eval; recs in chart, including weight limitations of 5-10 pounds, no bending of back, neck; okay to bend at knees; please see chart for details # Goals of care. - POLST provided at time of admission: DNR/DNI if found to have no pulse and is not breathing, with full treatment otherwise, including intubation, mechanical ventilation, and cardioversion if the patient has pulse and/or is breathing - Attempt to remedy illness; box checked for full treatment, which includes intensive care - POLST was signed by Walt Awan, 10/25/16 PRN: Fever/bowel/antiemetic/pain DVT: Lovenox Diet: via PEG, per dietary; NPO at this time GI: Not indicated Code: DNR/DNI; POLST in chart Patient status: She appears to be approaching baseline. We will begin talking about timing discharge back to halfway facility. Hospital course. This patient was admitted for acute respiratory failure with hypoxia. This in context of chronic hypoxic failure with home oxygen. She was found to have evidence of a probable aspiration pneumonia. She was placed. Antibiotics initially for healthcare associated pneumonia given her halfway facility living arrangement. In addition she recently had surgery with a cervical fixation at [facility]. Her antibiotics were pared down after having negative microbiologic studies and improvement clinically. Ultimately her oxygen demand return to baseline of 3 L of oxygen nasal cannula. She ultimately was felt to be at or near baseline and director social welfare discussed returning her to halfway facility with her . She does have a chronic encephalopathy which appear to be stable wall in the hospital. Exam Vital Signs (Last) Date Time Temp Pulse Resp B/P Pulse Ox O2 Delivery O2 Flow Rate FiO2 02/06/17 12:10 36.9 69 18 115/63 97 Nasal Cannula 2.50 Exam Patient seen and examined on the day of discharge Test 02/03/17 16:03 02/03/17 16:28 02/03/17 16:35 02/03/17 20:25 Prothrombin Time 9.7sec (8.1-12.5) Prothromb Time International Ratio 0.91ratio D-Dimer 1.44mg/L FEU (<0.50) Troponin T < 0.010ug/L (0.0-0.011) Pro-B-Type Natriuretic Peptide 279.4pg/mL (0-738) Urine Color Yellow (YELLOW) Urine Appearance Clear (CLEAR,HAZY) Urine pH 6.0 (5.0-8.0) Urine Specific [place] 1.015 (1.003-1.035) Urine Protein Negativemg/dL (NEG,TRACE) Urine Glucose (UA) Negativemg/dL (NEGATIVE) Urine Ketones Negativemg/dL (NEGATIVE) Urine Occult Blood Negative (NEGATIVE) Urine Nitrite Negative (NEGATIVE) Urine Bilirubin Negative (NEGATIVE) Urine Urobilinogen Normalmg/dL (NORMAL) Urine Leukocyte Esterase Negative (NEGATIVE) Urine RBC 0-2/hpf (0-2) Urine WBC 0-5/hpf (0-5) Urine Epithelial Cells None/hpf (NONE-MOD) Urine Crystals None seen (NONE SEEN) Urine Bacteria Few/hpf (NONE-FEW) Urine Hyaline Casts None/lpf (NONE) Urine Granular Casts None seen (NONE SEEN) Urine Waxy Casts None seen (NONE SEEN) Urine Red Blood Cell Casts None seen (NONE SEEN) Urine White Blood Cell Casts None seen (NONE SEEN) Urine Mucus None seen (None Seen) Urine Trichomonas None seen (NONE SEEN) Urine Yeast None (NONE SEEN) Urinalysis Comment None Urine Culture Reflexed Not indicated Urine Legionella pneumophilia Ag Negative (Negative) Lactic Acid Level 1.1mmol/L (0.4-2.0) Hold Purple Top Tube Received (Received) Hold [place] Top Tube Received (Received) Hold French Top Tube Received (Received) Test 02/04/17 04:00 02/05/17 08:25 02/05/17 16:06 02/06/17 05:00 Neutrophils (%) (Auto) 86.6% (40-74) Lymphocytes (%) (Auto) 5.5% (14-46) Monocytes (%) (Auto) 7.0% (4-12) Eosinophils (%) (Auto) 0.4% (0-5) Basophils (%) (Auto) 0.2% (0-3) Magnesium Level 2.0mg/dL (1.6-2.6) Total Bilirubin 0.4mg/dL (0.0-1.2) Aspartate Amino Transf (AST/SGOT) 21U/L (0-50) Alanine Aminotransferase (ALT/SGPT) 12U/L (0-32) Alkaline Phosphatase 86U/L (25-165) Total Protein 5.6g/dL (6.4-8.4) Procalcitonin 0.17ng/mL (0.00-0.08) White Blood Count 14.4th/mm3 (3.8-10.1) Red Blood Count 2.62mil/mm3 (3.90-5.20) Hemoglobin 8.1g/dL (12.0-15.6) Hematocrit 26.7% (35.0-46.0) Mean Corpuscular Volume 101.9fL (81-100) Mean Corpuscular Hemoglobin 30.9pg (27.0-35.0) Mean Corpuscular Hemoglobin Concent 30.3% (32.0-37.0) Red Cell Distribution Width 17.6% (12.3-15.4) Platelet Count 258bil/L (150-400) Calcium (Send out) 10.5mg/dL (8.7-10.3) Phosphorus Level 2.5mg/dL (2.5-4.9) Albumin 3.2g/dL (3.4-5.0) Parathyroid Hormone Interpretation Comment (.) Total Intact Parathyroid Hormone 23pg/mL (15-65) Activated Partial Thromboplast Time 65.3sec (22.8-33.0) Sodium Level 148mEq/L (134-144) Potassium Level 4.1mEq/L (3.5-5.2) Chloride Level 110mEq/L (97-108) Carbon Dioxide Level 25mmol/L (18-29) Blood Urea Nitrogen 32mg/dL (8-27) Creatinine 0.61mg/dL (0.57-1.00) Estimat Glomerular Filtration Rate 136mL/min (>59) Glucose Level 118mg/dL (60-99) Calcium Level 10.6mg/dL (8.5-10.1) Discharge Medications Discharge Medications Albuterol Neb Soln (Albuterol Neb Soln) 2.5 Mg/3 Ml Vial.neb 2.5 MG INHALATION QID (Reported) Cholecalciferol (Vitamin D3) (Cholecalciferol) 1 Gm Crystals 1,400 UNITS PEG DAILY (Reported) Citalopram Hydrobromide (Celexa) 20 Mg Tablet 20 MG PO DAILY (Reported) Clindamycin (Clindamycin) 300 Mg Capsule 300 MG PO QID Prescribed by: TYRONE VERMA MD Gabapentin Oral Soln (Gabapentin Oral Soln) 250 Mg/5 Ml Solution 200 MG PEG TID (Reported) Heparin Sod (Porcine) (Heparin Sod 5,000 Unit/0.5 ml) 0.5 Ml Ml 0.5 ML INJ TID ( Reported) Levofloxacin (Levofloxacin) 750 Mg Tablet 750 MG PO DAILY Prescribed by: TYRONE VERMA MD Methylphenidate (Methylphenidate) 5 Mg Tablet 5 MG PO BID (Reported) Methylphenidate (Methylphenidate) 5 Mg Tablet 5 MG PO BID Prescribed by: TYRONE VERMA MD Sennosides (Senna) 8.6 Mg Tablet 8.6 MG PEG BID (Reported) Simethicone (Gas-X) 80 Mg Tablet 80 MG PEG TID (Reported) As needed Acetaminophen Liquid (Acetaminophen Liquid) 160 Mg/5 Ml Solution 640 MG PEG QID PRN PRN For Pain (Reported) Guaifenesin (Liquituss GG) 200 Mg/5 Ml Liquid 10 ML PO DIRECTED PRN PRN For Cough (Reported) Oxycodone (Roxicodone) 5 Mg Tablet 5 MG PEG Q4H PRN PRN For Pain (Reported) Miscellaneous Medications Riluzole (Riluzole) 50 Mg Tablet 50 MG PEG (Reported) Followup Plan Disposition: [facility] facility Discharge Diet: Other (resume tube feeds) Discharge Activity: Other (resume previous activity orders with physical therapy.) Patient Instructions She will be followed by in the prison. Time spent 45 min Tyrone Verma MD Feb 07, 2017 13:08
[2017-02-09 23:06] LABS: PTH RELATED PEPTIDE <1.1 pmol/L (.)
[2017-02-26] MEDS ORDERED: DXM4T TUBE (16:36)
[2017-02-26] MEDS ORDERED: SCOP1PAT TD (16:56)
== END 2017-02-06 14:07 | DRG 189 ==
LOC: SED 15:28 → PCC 18:02
PROVIDERS: ADMIT Internal Medicine; ATTEND Internal Medicine
DX: J96.21 Acute and chronic respiratory failure with hypoxia (principal); J18.9 Pneumonia, unspecified organism; G93.49 Other encephalopathy; Z79.01 Long term (current) use of anticoagulants; Z91.81 History of falling; Z66 Do not resuscitate

== ENCOUNTER 2017-02-28 16:26 | Inpatient (IN) | payer MEDICARE, OTHER ==
[~2017-02-28] VITALS: Ht 162.6 cm; Wt 52.2 kg
[~2017-02-28 16:26] MED LIST: ACET160S PEG; ALBU2.5V4 INHALATION; CITA20TA PEG; DXM4T TUBE; GABA250S2 PEG; GUAI200L3 PEG; METH5TAB88 PO; O INJ; OXYC-474 PEG; SCOP1PAT TD; SENN-133 PEG; SIME80TA53 PEG
[2017-02-28] MEDS ORDERED: 0.9% Sodium Chloride 1,000 ML IV ONE ×2 (16:47→16:49)
--- NOTE | 2017-02-28 16:47 | ED.REPORT ---
HPI-General Illness Date of Service February 28, 2017 ED Provider: Dr. Jairo Gilliland MD Patient is a 81 year old female with a history of Waldenstrom's macroglobulinemia, depression, previous hypoxic respiratory failure, pneumonia, GERD who presents to the ED via EMS from [facility] with decreased LOC that began this afternoon. EMS report that the patient has been unresponsive. Patient is DNR/DNI. She recently experienced a GLF in September that resulted in a cervical fracture s/p cervical fusion at [facility]. Patient was recently seen by Dr. Hamilton in 02/2017. Patient is unable to provide history due to condition. Nursing Notes Stated Complaint: DECREASED LOC Nursing Notes Reviewed: Yes Allergies: Coded Allergies: Contrast Media (Verified Allergy, Unknown, 02/26/17) Penicillins (Verified Allergy, Unknown, 02/26/17) quinine (Verified Allergy, Unknown, 02/26/17) Scheduled Albuterol Neb Soln (Albuterol Neb Soln) 2.5 Mg/3 Ml Vial.neb 2.5 MG INHALATION QID Citalopram Hydrobromide (Celexa) 20 Mg Tablet 20 MG PEG DAILY Dexamethasone (Dexamethasone) 4 Mg Tablet 4 MG TUBE Q6HRS X 3 DATS/THEN REDUCE DAILY DOSE BY 4MG EVERY 3 DAYS UNTIL STOP Gabapentin Oral Soln (Gabapentin Oral Soln) 250 Mg/5 Ml Solution 200 MG PEG TID Heparin Sod (Porcine) (Heparin Sod 5,000 Unit/0.5 ml) 0.5 Ml Ml 0.5 ML INJ TID Methylphenidate (Methylphenidate) 5 Mg Tablet 5 MG PO BID Methylphenidate (Methylphenidate) 5 Mg Tablet 5 MG PO BID Scopolamine (Transderm-Scop) 1 Each Patch.td72 1 EACH TD Q72HRS Sennosides (Senna) 8.6 Mg Tablet 8.6 MG PEG BID Simethicone (Gas-X) 80 Mg Tablet 80 MG PEG TID Scheduled PRN Acetaminophen Liquid (Acetaminophen Liquid) 160 Mg/5 Ml Solution 640 MG PEG QID PRN PRN For Pain Guaifenesin (Liquituss GG) 200 Mg/5 Ml Liquid 10 ML PEG DIRECTED PRN PRN For Cough Oxycodone (Roxicodone) 5 Mg Tablet 5 MG PEG Q4H PRN PRN For Pain General Time Seen by MD: 16:47 Transferred From: halfway Chief Complaint Other (Decreased LOC) Hx Obtained From: EMS Unable to Obtain Hx: Patient condition (Limited ) Arrived By: Ambulance Sudden in Onset?: No Onset Occurred: Just prior to arrival Symptom Duration: Since onset Pertinent Negative: Pt denies other symptoms Recent Healthcare: Recent doctor visit, Recent hospitalization Past Medical History Past Medical History 1. C1 fx from GLF 2. Waldenstrom's macroglobulinemia 3. Depression 4. 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 Hydrocephalus 6. O2 dependent 7. Pleural effusion 8. Pneumonia Reports: GERD Past Surgical History 1. neck fracture and surgery Oct 2015 at [facility] Smoking History Never Smoker Social History Other Social History: , Lives in fpc, Local resident Ambulatory Status Independent Review of Systems Unable to Obtain ROS Patient condition Physical Exam Vital Signs Vital Signs Date Time Temp Pulse Resp B/P Pulse Ox O2 Delivery O2 Flow Rate FiO2 02/28/17 19:27 36.6 81 15 109/51 100 Simple Mask 5 02/28/17 18:07 72 15 89/37 99 Simple Mask 7 02/28/17 17:05 37.2 78 16 104/44 91 Nasal Cannula 4 Initial VS: Reviewed Alertness: Positive: Somnolent, Unresponsive Appearance / Presentation: Positive: Pale, Negative: Uncomfortable GENERAL: Pt opens her eyes to verbal command Head / Eyes: Atraumatic, Normocephalic, PERRL Neck: Atraumatic, Supple NECK: Well healing midline incision to the C-Spine Regions of skin breakdown to the occipital region Respiratory / Chest: Atraumatic Resp Distress / Stridor: Positive: Resp distress moderate RESPIRATORY: Coarse breath sounds in bilateral lung yin (L>R) Stats on the in high 80's by nasal canula Cardiovascular: Heart rate NL, Regular rhythm, Heart sounds NL, No gallop, No murmurs, No rubs, Peripheral circulation NL Abdomen: Atraumatic, Soft, Non-tender, BS normoactive, No distention ABDOMEN: Feeding tube present in the left quadrant with no evidence of erythema, warmth, induration, purulence or fluctuance Skin: Warm, Intact Color / Condition: Positive: Diaphoresis present Neurologic: No motor deficits, No sensory deficits, Reflexes equal bilat Mental Status: Positive: Responds to verbal stim, Somnolent, Unresponsive Interpretation & Diagnostics Lab Results Interpretation Result Diagram: 02/28/17 1645 02/28/17 1645 Test 02/28/17 16:45 02/28/17 19:04 White Blood Count 5.9th/mm3 (3.8-10.1) Red Blood Count 3.17mil/mm3 (3.90-5.20) Hemoglobin 9.8g/dL (12.0-15.6) Hematocrit 31.7% (35.0-46.0) Mean Corpuscular Volume 100.0fL (81-100) Mean Corpuscular Hemoglobin 30.9pg (27.0-35.0) Mean Corpuscular Hemoglobin Concent 30.9% (32.0-37.0) Red Cell Distribution Width 15.6% (12.3-15.4) Platelet Count 231bil/L (150-400) Neutrophils (%) (Auto) 67.6% (40-74) Lymphocytes (%) (Auto) 16.7% (14-46) Monocytes (%) (Auto) 12.8% (4-12) Eosinophils (%) (Auto) 1.9% (0-5) Basophils (%) (Auto) 0.5% (0-3) Prothrombin Time 10.1sec (8.1-12.5) Prothromb Time International Ratio 0.95ratio Sodium Level 140mEq/L (134-144) Potassium Level 4.6mEq/L (3.5-5.2) Chloride Level 99mEq/L (97-108) Carbon Dioxide Level 28mmol/L (18-29) Blood Urea Nitrogen 30mg/dL (8-27) Creatinine 0.70mg/dL (0.57-1.00) Estimat Glomerular Filtration Rate 115mL/min (>59) Glucose Level 114mg/dL (60-99) Lactic Acid Level 1.3mmol/L (0.4-2.0) Calcium Level 11.2mg/dL (8.5-10.1) Magnesium Level 2.2mg/dL (1.6-2.6) Total Bilirubin 0.2mg/dL (0.0-1.2) Aspartate Amino Transf (AST/SGOT) 24U/L (0-50) Alanine Aminotransferase (ALT/SGPT) 17U/L (0-32) Alkaline Phosphatase 83U/L (25-165) Total Creatine Kinase 491U/L (21-215) Troponin T 0.037ug/L (0.0-0.011) Pro-B-Type Natriuretic Peptide 818.5pg/mL (0-738) Total Protein 5.9g/dL (6.4-8.4) Albumin 3.2g/dL (3.4-5.0) Procalcitonin 0.21ng/mL (0.00-0.08) Urine Color Straw (YELLOW) Urine Appearance Hazy (CLEAR,HAZY) Urine pH 6.0 (5.0-8.0) Urine Specific [place] 1.005 (1.003-1.035) Urine Protein Negativemg/dL (NEG,TRACE) Urine Glucose (UA) Negativemg/dL (NEGATIVE) Urine Ketones Negativemg/dL (NEGATIVE) Urine Occult Blood Large (NEGATIVE) Urine Nitrite Negative (NEGATIVE) Urine Bilirubin Negative (NEGATIVE) Urine Urobilinogen Normalmg/dL (NORMAL) Urine Leukocyte Esterase Large (NEGATIVE) Urine RBC 3-10/hpf (0-2) Urine WBC 11-50/hpf (0-5) Urine Epithelial Cells None/hpf (NONE-MOD) Urine Crystals None seen (NONE SEEN) Urine Bacteria Few/hpf (NONE-FEW) Urine Hyaline Casts None/lpf (NONE) Urine Granular Casts None seen (NONE SEEN) Urine Waxy Casts None seen (NONE SEEN) Urine Red Blood Cell Casts None seen (NONE SEEN) Urine White Blood Cell Casts None seen (NONE SEEN) Urine Mucus None seen (None Seen) Urine Trichomonas None seen (NONE SEEN) Urine Yeast None (NONE SEEN) Urinalysis Comment None Urine Culture Reflexed Indicated ECG Interpretation ECG Interpretation: Sinus rhythm at 67 bpm Normal axis Normal intervals T waves inverted in anteroseptal leads When compared to 02/03/17 anteroseptal Q waves new Time: 17:34 Interpreted by: ED physician X-Ray Chest Interpretation Chest Xray Interpretation: IMPRESSION: 1. Increased small bilateral pleural effusions with increased compressive atelectasis or consolidation. Left retrocardiac consolidation is also increased. Dictated by: Jae Pantoja M.D. on 02/28/2017 at 17:33 Interpretation / Wet Read by: Interpret - Radiologist Re-Eval/Medical Decision Med Decision/Clinical Course Patient is a 81 year old female with a history of Waldenstrom's macroglobulinemia, depression, previous hypoxic respiratory failure, pneumonia, GERD who presents to the ED via EMS from [facility] with decreased LOC that began this afternoon. EMS report that the patient has been unresponsive. Patient is DNR/DNI. She recently experienced a GLF in September that resulted in a cervical fracture s/p cervical fusion at [facility]. Patient was recently seen by Dr. Hamilton in 02/2017. Patient is unable to provide history due to condition. Patient additionally has a history of brain cancer. Reviewed advance directive which states limited interventions. Discussed in depth with the patient's states that antibiotics, IV fluids are appropriate but no central line, no vasopressors, no intubation and no CPR. Upon arrival patient confused, hypoxic on room air and hypotensive with a blood pressure in the 80s over the 30s. 2 peripheral IVs were obtained and I initiated aggressive fluid resuscitation and broad-spectrum antibiotics for suspected pneumonia. Chest X-ray IMPRESSION: 1. Increased small bilateral pleural effusions with increased compressive atelectasis or consolidation. Left retrocardiac consolidation is also increased. EKG Sinus rhythm at 67 bpm Normal axis Normal intervals T waves inverted in anteroseptal leads When compared to 02/03/17 anteroseptal Q waves new LABS CBC - No leukocytosis Stable Hct 31.7 Coag normal Renal function stable Lactic Acid 1.3 No electrolyte abnormalities Trop 0.037 Procalcitonin BNP 819 I had a long conversation at the bedside with the patient's . Patient's critical condition was discussed as well as goals of care. Laboratory studies were reviewed as above. Urinalysis remains pending at time of reticulocyte this note. Cause of patient's elevated troponin remains unclear though may be stress related. We will trend troponin's and consider heparinization/more aggressive treatment if in line with the patient's wishes. At this time the patient is critically ill with multiple comorbidities and clear aggressive care as established by patient's advanced directive and a discussion with the patient 's . Patient discussed with admitting hospitalist and transferred for further management. Admitted to medical floor as goals of care are not consistent with ICU level of treatment. Time of Eval: 17:17 Patient Status: Condition unchanged Re-Evaluation/Progress Note: is informed of the plan to admit following results. Comfort care is discussed. Pt would like limited intervention. Time of Eval: 19:11 Patient Status: Condition improved Re-Evaluation/Progress Note: is informed of the pt's results and the plan to admit. All questions are addressed. He understands and agrees with the intended treatment plan. Consultation : Referral / Consult Name: Clay Melton MD Consulted With: Hospitalist Call Returned at: 19:11 Action Installer: Will see patient, Agrees with eval, Agrees with plan, Accepts admit Counseled Regarding: Diagnosis, Lab results, Need for admission Discharge & Departure Primary Impression: Sepsis Sepsis type: sepsis due to unspecified organism Qualified Code: A41.9 - Sepsis, unspecified organism Additional Impressions: Respiratory failure Chronicity: acute Respiratory failure complication: hypoxia Qualified Code : J96.01 - Acute respiratory failure with hypoxia Hypoxia Altered mental status Altered mental status type: unspecified Qualified Code: R41.82 - Altered mental status, unspecified History of brain cancer History of cervical fracture Disposition: ADMITTED TO HOSPITAL Discharge Condition Condition: Critical Referrals: Aditya Nguyễn MD (PCP) Crit Care Except Billable Proc Time Spent: 135-164 minutes Services Performed: Patient management by me, Time spent at bedside, Reviewing test results, Reviewing imaging, Discussing patient care, Documentation in record, Time with fam/surrogate Scribe Attestation Portions of this note were transcribed by Nikolai Izaguirre. I, Dr. Gilliland personally performed the history, physical exam and medical decision-making; I reviewed and confirmed the accuracy of the information in the transcribed note. Signed by: Anjelica Mc, 02/28/171911. copies to: Aditya Nguyễn MD, Beck O MD February 28, 2017 16:47 NIKOLAI IZAGUIRRE February 28, 2017 16:52
[2017-02-28] MEDS ORDERED: Ondansetron 2 mg/mL 2 mL Inj IVPUSH PRN ×2 (16:50→19:25)
[2017-02-28] MEDS ORDERED: levoFLOXacin Inj 750 MG in IV Premix 1 EACH IV ONE (16:50)
[2017-02-28] MEDS ORDERED: Alum-Mag Hydrox-Simeth 30 mL Suspension PO PRN ×2 (16:50→19:25)
[2017-02-28] MEDS ORDERED: Vancomycin Dose per Pharmacist XX ONE (16:50)
[2017-02-28] MEDS ORDERED: Cefepime Inj 2 GM in IV Premix 1 EACH IV ONE (16:50)
[2017-02-28 17:05] VITALS: BP 104/44; PULSE 78; RESP 16; O2SAT 91
[2017-02-28] MEDS ORDERED: Vancomycin Inj 1,000 MG in IV Premix 1 EACH IV ONE (17:05)
[2017-02-28 17:14] LABS: BASOPHILS % (AUTO) 0.5 % (0-3); EOSINOPHILS % (AUTO) 1.9 % (0-5); MONOCYTES % (AUTO) 12.8 % (4-12); Mean Corpuscular Hemoglobin 30.9 pg (27.0-35.0); NEUTROPHILS % (AUTO) 67.6 % (40-74); Platelet Count 231 bil/L (150-400)
[2017-02-28 17:29] LABS: INR 0.95 ratio
--- NOTE | 2017-02-28 17:42 | DRSVH ---
PROCEDURE: X-RAY CHEST ONE VIEW, PORTABLE ([id number]) INDICATIONS: fever, hypoxia TECHNIQUE: One view of the chest was acquired. COMPARISON: [facility], CR, XR CHEST 1VW (PORTABLE), 02/04/2017, 4:39. FINDINGS: Surgical changes and devices: A right WRINGER AND SETTER shunt catheter is again noted. Lungs and pleura: There are small bilateral pleural effusions, increased from the prior study. Ther e are also increased left retrocardiac opacities consistent with consolidation as well as bibasilar o pacities either representing compressive atelectasis. Mediastinum: Mediastinal contours appear unchanged. Heart size is normal. Bones and chest wall: No suspicious bony lesions. Overlying soft tissues appear unremarkable. IMPRESSION: 1. Increased small bilateral pleural effusions with increased compressive atelectasis or consolidati on. Left retrocardiac consolidation is also increased. Dictated by: Jae Pantoja M.D. on 02/28/2017 at 17:33 Approved by: Jae Pantoja M.D. on 02/28/2017 at 17:35
[2017-02-28 18:07] VITALS: BP 89/37; PULSE 72; RESP 15; O2SAT 99
[2017-02-28 18:18] LABS: Magnesium 2.2 mg/dL (1.6-2.6)
[2017-02-28 18:19] LABS: TROPONIN T 0.037 ug/L (0.0-0.011)
[2017-02-28 19:13] LABS: APPEARANCE,URINE HAZY (CLEAR,HAZY); COLOR,URINE STRAW (YELLOW); OCCULT BLOOD,URINE LARGE (NEGATIVE); UROBILINOGEN,URINE NORMAL (NORMAL)
[2017-02-28] MEDS ORDERED: Polyethylene Glycol (PEG) 17 Gm Powder PO PRN (19:25)
[2017-02-28 19:27] VITALS: BP 109/51; PULSE 81; RESP 15; O2SAT 100
[2017-02-28 20:22] VITALS: BP 99/56; PULSE 88; RESP 16; O2SAT 99
--- NOTE | 2017-02-28 21:54 | PCM.HPMED ---
Subjective Date of Service February 28, 2017 Primary Provider: Admitting Physician: Clay Melton MD Primary Care Physician: Aditya Nguyễn MD Attending Physician: Clay Melton MD Chief Complaint: Other (Decreased LOC) History of Present Illness: This Deana Givens very pleasant 82-year-old lady who presented to the [facility] emergency Department by way of EMS from [facility] with decreased level of consciousness. She has significant past medical histories including Waldenstrm's macroglobulinemia, ependymoma with radiation therapy, depression, previous pneumonia and hypoxic respiratory failure, GERD. Patient is DNR/DNI. She recently experienced a GLF in September that resulted in a cervical fracture s/p cervical fusion at [facility]. Patient was recently seen by Dr. Hamilton in 02/2017. Patient is unable to provide history due to condition. Other information obtained from Dr. Hamilton 02/2017 note.: This is an 82-year-old woman who was previously followed at [facility] for Waldenstrom's macroglobulinemia. She had developed ataxia and was discovered by Dr. Nguyễn on [place] to have a brain tumor, which was ultimately determined to be an ependymoma. This was originally resected in January 2016. She subsequently had good recovery but had residual disease left behind. In addition, she had stable Waldenstrom's macroglobulinemia with IgM, free kappa and M-spike all relatively stable. She was last seen at [facility] in August 2016. Subsequent to that, she fell in September, struck her head at home on October 07 and went [facility] with a cervical fracture, and ultimately required a cervical fusion. She has been at [facility] since October 30. She was recently hospitalized at [facility] from February 03 to February 06 with pneumonia. She has had a feeding tube since January 21. Dr. Choudhury is her doctor at [facility]. She received brain radiation beginning November 21 and completed on December 31 with an initial volume extending down into the upper portion of spinal canal, followed by boost off the spinal cord extension, primary mass in the 4th ventricle. Total dose to majority of her tumor was said to be 50.4 Gy. For the last several months, she has been very debilitated, but her reports that in the past month she has deteriorated significantly and now spends most of her time in bed and not communicating; she is able to sit at the side of the bed and weightbear on her feet with assistance and communicates with brief words or at most a phrase. Per radiation oncology notes 01/06/17. 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 She was recommended to undergo adjuvant radiation, however, declined, and in September 2016 was admitted to [facility] with increasing confusion and ataxia. 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 A PER DIEM shunt was placed at that time and she was recommended to undergo salvage radiation therapy to the site of recurrence. Her radiation details are summarized below. Upon arrival to the emergency department patient's vitals were as follows: Temperature 37.2 C rectally, pulse 78, respirations 16, blood pressure 104/44, pulse oximetry 91% on 4 L nasal cannula. At time of this to take dictation her temperatures remained afebrile pulse 88, respiratory rate 16, blood pressure 99/ 56, pulse ox 99% on 5 L oxygen mask. CBC: White count 5.9, hemoglobin 9.8, MCV 100, MCHC 30.9, RDW 15.6, platelets 231, neuts 67.6, lymphs 16.7, monos 12.8 eos 1.9, sodium 140, potassium 4.6, chloride 99, CO2 28, BUN 30, creatinine 0.7, glucose 114, lactic acid 1.3, calcium 11.2, magnesium 2.2, AST/ALT 24/17, CK 491, troponin 0.037, BNP 818, Procalcitonin 0.21. UA: Straw-colored hazy, pH 6.0 with a urine specific gravity of 1.005, occult blood large, nitrates negative, leukocyte esterase large, white count 11-50, epithelial none, few bacteria, no casts or crystals. In the emergency department she received cefepime,Levaquin, vancomycin. Review of Systems: Unable to obtain due to patient condition. Allergies Coded Allergies: Contrast Media (Verified Allergy, Unknown, 02/26/17) Penicillins (Verified Allergy, Unknown, 02/26/17) quinine (Verified Allergy, Unknown, 02/26/17) Home Medications Per next Gen records. Acetaminophen 500 mg every 6 hours as needed Albuterol 2.5/3 male solution nebulizer Bisacodyl 10 mg rectal suppository Cholecalciferol 1000 unit tablet Oxycodone 5 mg by PEG tube every 4 hours as needed Senile sides 8.6 mg every 2 days as needed for constipation Simethicone 80 mg chewable tab well so A recent visit with Dr. Hamilton. 1. Methylphenidate 5 mg twice a day. 2. Oxycodone 5 mg every 4 hours as needed. 3. Scopolamine patch every 72 hours. 4. Senna Lax tablets via PEG tube 2 at bedtime. 5. Simethicone 80 mg via PEG tube for constipation. 6. Oxygen 1-2 L via nasal cannula. 7. _tube feedings, please see details in flow sheet. 8. Acetaminophen liquid. 9. Albuterol. 10. Citalopram 20 mg. 11. Gabapentin 200 mg 3 times a day. 12. Guaifenesin. PMH 1. C1 fx from GLF 2. Waldenstrom's macroglobulinemia 3. Depression 4. 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 Hydrocephalus 6. O2 dependent 7. Pleural effusion 8. Pneumonia 9. GERD Surgical History 1. neck fracture and surgery Oct 2015 at [facility] Family History Unable to obtain due to patient condition. Social History Hx Alcohol Use: No Hx Substance Use: No Smoking Status: Never Smoker Exam Vital Signs Vital Sign - Last Date Time Temp Pulse Resp B/P Pulse Ox O2 Delivery O2 Flow Rate FiO2 02/28/17 21:27 Supplement Oxygen 02/28/17 20:22 36.5 88 16 99/56 99 5.00 Exam General: Patient unresponsive, thin. HEENT: Normocephalic, atraumatic. External ears without defect. Pupils equal, round, and reactive to light and accommodation. Anicteric sclerae, moist conjunctivae, and no lid lag. Oropharynx free of erythema and cobble stoning with moist mucosa. Neck: Supple with full range of motion. No jugular venous distension. No bruits. No lymphadenopathy or thyromegaly. Cardiovascular: Regular rate and rhythm with no murmurs, rubs, or gallops appreciated Pulmonary: Patient with significant coarse rhonchi diffusely bilaterally. Abdomen: Bowel tones present. Soft, nontender, nondistended. No hepatosplenomegaly or masses appreciated. PEG tube in place. Extremities: No clubbing, cyanosis, edema, or lymphadenopathy appreciated. Skin: Normal temperature, turgor, and texture; no rash, ulcers, or subcutaneous nodules appreciated. Neurological: Unable to evaluate due to patient unresponsive. Psychiatric: Unable to evaluate due to patient unresponsive. Lab and Diagnostics Result Diagram: 02/28/17 1645 02/28/17 1645 Microbiology Urine cx pending. 02/28/17 @ 1904 Blood cx pending. 02/28/17/ @ 1645 X-Rays, CTs and MRIs X-RAY CHEST ONE VIEW, PORTABLE IMPRESSION: 1. Increased small bilateral pleural effusions with increased compressive atelectasis or consolidation. Left retrocardiac consolidation is also increased. Dictated by: Jae Pantoja M.D. on 02/28/2017 at 17:33 Assessment & Plan Patient is a 81 year old female with a history of Waldenstrom's macroglobulinemia, depression, previous hypoxic respiratory failure, pneumonia, GERD who presents to the ED via EMS from [facility] with decreased LOC that began this afternoon. EMS report that the patient has been unresponsive. Patient is DNR/DNI. She recently experienced a GLF in September that resulted in a cervical fracture s/p cervical fusion at [facility]. Patient was recently seen by Dr. Hamilton in 02/2017. Patient is unable to provide history due to condition. 1. Acute Encephalopathy, present on admission. Active. - Differential includes aspiration pneumonia/bacterial pneumonia, urinary tract infection, progression of brain cancer. - Continue treat possible underlying etiology. - Blood cultures pending. - Consider continuing home methylphenidate. 2. Acute on chronic respiratory failure, present on admission. Active. - 1-2 L home O2 Nasal cannula. - ABG ordered. - CXR as above. - Procalcitonin and 0.21. We will trend daily until normalized. - Sputum culture when possible. - Urine Legionella and strep pneumo ordered. - Viral respiratory panel ordered. - Nasal MRSA swab ordered. - Ox mask in place at 5 L. If patient decompensates we will place BiPAP currently DO NOT INTUBATE. - Continue vancomycin, and cefepime. - Patient has contrast allergy, will require pretreatmen before exposure. - Consider continuing home scopolamine patch for secretions. - Continue home albuterol nebulizers. 3. Acute Urinary tract infection, present on admission. Active. - UA straw hazy, large leukocyte esterase, 11-50 white cells, no epithelial. Culture pending. - Whitmore in place. - Patient received cefepime, vancomycin, and Levaquin in the emergency department. - Continue IV cefepime. 4. Elevated troponins, present on admission. Active.. - We will trend troponins every 6 hours. Initial value 0.037, then 0.036 - Likely demand ischemia. - Consider cardiology consult. 5. Chronic macrocytic anemia, present on admission. Stable. - History of Waldenstrom's macroglobulinemia. - Hemoglobin on admission 9.8 previous values range from 7.6-10.5 from 2002 - 2016. - Consider oncology consult, Dr. Hamilton saw the patient 02/17/2017. Social: Patient's functional status has been deteriorating over the last month. Patient is DNR/DNI, family would like to receive other forms of treatment including antibiotics and fluids. Nutrition: Patient is on PEG tube feedings. Recommend ply bander consult. Acetaminophen for mild pain when necessary. Bowel regimen simethicone PRN and Senna Lax tablets via PEG tube 2 at bedtime for constipation. Zofran when necessary for nausea and vomiting. SubQ heparin held for now. SCDs in place. Disposition: Patient has been admitted as an inpatient status. Likely here greater than treatment. Discharge is dependent upon respiratory status, mental status. Discharge likely to [facility] or other long-term care facility. Pain Evaluation: Adequate Pain Control Resuscitation Status: DNR/DNI:Do Not Resuscitate/Intubate Attending Statement The patient was seen and examined together with Dr. Darnell on 02/28 and I agree with the history, exam and plan as outlined in the note above. RADHA DARNELL DO February 28, 2017 21:54 Clay Melton MD March 01, 2017 04:17 Clay Melton MD March 01, 2017 04:17 Resuscitation Status: DNR/DNI:Do Not Resuscitate/Intubate RADHA DARNELL DO February 28, 2017 21:54
[2017-03-01] VITALS (13 sets, daily range): BP systolic 89–104; BP diastolic 51–58; PULSE 84–93; RESP 18–23; O2SAT 94–98
[2017-03-01] MEDS: Cefepime Inj 2 GM in IV Premix 1 EACH IV SCH ×2 (05:47→21:06)
--- NOTE | 2017-03-01 06:42 | PCM.CONPHA ---
Subjective Date of Service: March 01, 2017 Requesting Provider: RADHA PHELPS DO Other (Decreased LOC) History of Present Illness Sepsis, respiratory failure Reason for Pharmacy Consult: Vancomycin Dosing Objective Assessment/Plan Assessment/Plan A/ - 82 y/o female patient admitted in 02/28 for sepsis, hypoxic respiratory failure required Vancomycin empiric coverage. - Patient has past history of Waldenstrom's macroglobulinemia, ependymoma with radiation (last received past month), on feeding tube since January 21, and DNR/ DNI; her family wishes to have treatment with antibiotics and IVF - Afebrile, shocky, WBC: 5.9. lactic acid: 1.3. Urine and blood cultures. MRSA swab, Strep pneu Ag screen are pending - Comitant antibiotic: cefepime - Wt: 51 kg, ht: 162.6cm, Scr: 0.7 mg/dL, estimated clearance ~50 mg/min, t1/2: 15hrs, Vd~36L - In ED, received Vancomycin 1G iv @5 02/28 P/ - Give Vancomycin 1G iv q24h. Trough level ordered before 3rd dose @1730 on . Pharmacy will continue to monitor and make necessary adjustment depends on patient's clinical status Thank you for consulting clinical pharmacy in the care of the patient Wayne Arauz Tieuvan March 01, 2017 06:42
[2017-03-01 06:54] LABS: BASOPHILS % (AUTO) 0.2 % (0-3); MONOCYTES % (AUTO) 5.8 % (4-12); Mean Corpuscular Hemoglobin 30.4 pg (27.0-35.0); NEUTROPHILS % (AUTO) 89.3 % (40-74); Platelet Count 253 bil/L (150-400)
--- NOTE | 2017-03-01 07:55 | NUR ---
Social Work: Initial Assessment Data & Assessment: See Initial Assessment. EMR reviewed. Patient is a 82 y/o female that admitted on 02/28/17 for sepsis and respiratory failure per H&P. SW attempted to meet with patient and complete initial assessment, but the patient was asleep. SW spoke with patient's spouse and completed the assesment via phone. Patient does not have an Advance Directive/DPOA and patient's spouse declined the information. Patient's insurance is Medicare and [employer]. Supp. Patient's PCP is Dr. Nicola Nguyễn. Patient does not have VA benefits. Patient has LTC insurance with [employer]. Patient's re-admit score is 6 highrisk. Patient is a resident at [facility] and patient's spouse reports that she is total care. Patient has had HH in the past. Patient has a WC. Currently the plan is for the patient to return to [facility] when discharged per spouse. SW will continue to follow and assist patient throughout stay. SW wrote contact information on patient's whiteboard. Plan: Patient will likely return to [facility] when discharged. SW will continue to follow and assist patient throughout stay. Lucie Hackett LMSW, LISA Addendum: 03/02/17 at 0807 by LUCIE HACKETT Amended: Links added.
[2017-03-01] MEDS: Vancomycin Dose per Pharmacist XX SCH (08:30)
[2017-03-01] MEDS ORDERED: MAGN400O4 PO (08:50)
[2017-03-01] MEDS ORDERED: Oxygen NASAL (08:50)
[2017-03-01] MEDS: 0.9% Sodium Chloride 250 ML IV SCH (10:50)
--- NOTE | 2017-03-01 11:34 | NUR ---
Palliative Care - ON HOLD Palliative Care received verbal order from Dr Dodge 03/01/17 to assist with goals of care. Patient is an 82 year old woman who was admitted 02/28/17. Patient is already DNR/DNI. Case discussed in Palliative Care and due to PC caseload, we will not meet with patient/family today. PC power manager informed Dr Dodge of this today, and Dr Dodge agreed to inform the family that patient is declining. Will f/u next week if patient still here. Patient resides at [facility]. Walt Awan () [phone] Palliative Care order is currently on hold. We will not be meeting with patient today and/or may not meet with her at all during this admission. Roseline Espinoza
--- NOTE | 2017-03-01 12:26 | ABG ---
DateTimeAnalyzed 12:10:01 -_ pH ____7.438 - 7.350 7.450 pCO2 ___42.2__ -mmHg 35.0 45.0 pO2 104 -mmHg 70.0 100 HCO3- ___28.5__ -mmol/L 22.0 26.0 ABE ____4.0__ -mmol/L -2.0 2.0 tHb ____7.4__ -g/dL 12.0 18.0 O2Hb ___97.9__ -% 95.0 COHb ____1.8__ -% 1.5 MetHb ___-0.1__ -% 0.4 1.5 sO2 ___99.6__ -% FIO2 ___21.0__ -% Drawn By lw - Date/Time Notified____ 12:25:00 -_ Liter_Flow ____5.00_ -L/min Oxygen Device 1 __oxymask - Notified By lw - Notified Whom ___Jon RN - B 759 -mmHg K+ ____4.3__ -mmol/L tO2 ___10.4__ -Vol% Tyrone test _Positive -
--- NOTE | 2017-03-01 13:02 | NUR ---
NUTRITION ASSESSMENT: ASSESS: Pt is an 82yo F admitted for decreased LOC. Pt came from [facility]. She has a PEG tube for nutrition. Per MD, will hold off on starting TF today. Unsigned orders placed in chart. RN and MD aware of unsigned orders in case TF is to start overnight. Palliative care is involved. PMHX: Waldenstrm's macroglobulinemia, ependymoma with radiation therapy, depression, previous pneumonia and hypoxic respiratory failure, GERD LABS: Reviewed. Ca 10.7, Alb 2.7 MEDS: Reviewed. GI:0 BM SKIN: Rock 9, open wound on sacrum CURRENT WTS: 51kg, BMI 19.3kg/m2 HOME TF: Fibersource HN @50ml/hr x24 hrs w/ 30cc fluid flush q 1 hr to provide 1440kcal and 65g pro DIET: NPO EST. NEEDS: Kcals: 1275-1530kcal/day (25-30kcal/kg) Pro: 50-75g/day (1.0-1.5g/kg) Fluids: 1530-1785ml/day (30-35ml/kg) NUTRITION DIAGNOSIS: 1.) Inadequate oral intake related to chronic disease as evidence by need for TF via PEG for adequate nutrition NUTRITION INTERVENTION: 1.) Will continue to monitor NPO Status. Unsigned TF orders in chart in case TF is to be started. 2.) Recommend start TF of Jevity 1.5@ 20ml/hr. If tolerated, advance by 10mlq 4 hrs until reach goal rate of 42ml/hr to provide 1450kcal and 62g pro (100% estimated needs). Flush 40ml q 1 hr to provide an additional 960ml free water. MONITOR / EVAL: NPO, TF start?, GI, wt, labs, POC, nutrition status. Will continue to monitor per high nutrition risk guidelines. Addendum: 03/02/17 at [address] Per orders from Dr. Dodge, enteral feeding initiated this afternoon, per RITESH recommendation.
--- NOTE | 2017-03-01 17:23 | NUR ---
Wet Cough/lung sounds Pt exhibiting wet/crackling lung sounds R>L and very gargly wet cough. Pt using 5L O2 via oxymask, NPO status, and getting transfusion for low hemoglobin. Oral care/swabs provided for comfort. MD notified of wet cough. Sopalamine patch ordered and administered.
[2017-03-01] MEDS ORDERED: 0.9% Sodium Chloride 100 ML ONE ×2 (20:57→22:10)
[2017-03-01] MEDS: Vancomycin Inj 1,000 MG in IV Premix 1 EACH IV SCH (22:25)
[2017-03-02] VITALS (11 sets, daily range): BP systolic 97–102; BP diastolic 56–63; PULSE 61–90; RESP 16–22; O2SAT 95–99
[2017-03-02] MEDS ORDERED: D5 0.45% NaCl + KCl 20 mEq/L 1,000 ML IV SCH (00:40)
--- NOTE | 2017-03-02 00:48 | PCM.PNMED ---
Subjective Date of Service March 01, 2017 Subjective Patient is somnolent, opened eyes, responsive to sternal rub, pain, verbal. making hand gestures said ok at onepoint. Eyes are reactive, tracking ok. Exam Vital Signs Vital Sign - Last Date Time Temp Pulse Resp B/P Pulse Ox O2 Delivery O2 Flow Rate FiO2 03/01/17 06:26 92 03/01/17 06:14 37.9 03/01/17 05:06 22 91/51 94 OxyMask 5.00 Intake and Output 02/28/17 02/28/17 03/01/17 Cumulative From/Thru 15:00 23:00 07:00 02/28/17 17:39 - 02/28/17 20:22 Intake Total 2000 ml 2000 ml Balance 2000 ml 2000 ml IV Total 2000 ml 2000 ml Exam Gen.: Poorly responsive to verbal, opening eyes to verbal. HEENT: Cachectic appearing but slightly open trachea central Heart: Regular rate and rhythm no S3-S4 sounds Lungs: Bilateral crackles, diminished lung sounds anteriorly Abdomen: Flat, nondistended Extremities: Negative for edema Neuro: Responsive to pain, responsive to verbal, making hand gestures, eyes are tracking, PERRLA Skin: Warm to touch Vasculature: Palpable dorsalis pedis pulse IVs and Medications IV Fluids Patient is expected to receive 2 units of PRBC, will put her on D5 half-normal with 20 KCl once the transfusion is finished Medications Reviewed: Medications were reviewed in detail Lab and Diagnostics Result Diagram: 03/01/17 0602 03/01/17 0602 Microbiology Urine cx pending. 02/28/17 @ 1904 Blood cx pending. 02/28/17/ @ 1645 X-Rays, CTs and MRIs X-RAY CHEST ONE VIEW, PORTABLE IMPRESSION: 1. Increased small bilateral pleural effusions with increased compressive atelectasis or consolidation. Left retrocardiac consolidation is also increased. Dictated by: Jae Pantoja M.D. on 02/28/2017 at 17:33 Assessment & Plan Patient is a 81 year old female with a history of Waldenstrom's macroglobulinemia, depression, previous hypoxic respiratory failure, pneumonia, GERD who presents to the ED via EMS from [facility] with decreased LOC that began this afternoon. EMS report that the patient has been unresponsive. Patient is DNR/DNI. She recently experienced a GLF in September that resulted in a cervical fracture s/p cervical fusion at [place]. Patient was recently seen by Dr. Hamilton in 02/2017. Patient is unable to provide history due to condition. 1. Acute Encephalopathy, present on admission. Active. - Differential includes aspiration pneumonia/bacterial pneumonia, urinary tract infection, progression of brain cancer. - Continue treat possible underlying etiology. - Blood cultures pending negative today - We will hold methylphenidate until patient is more oriented -- Called and discussed the case with patient's , he says that he will be in the hospital tomorrow a.m. He states that she was a little bit more responsive though she was mostly bedbound up until a week ago. She was able to walk in some capacity to a few steps with assistance. Her cognition has been declining per . - 2. Acute on chronic respiratory failure due to pneumonia, present on admission. Active. - 1-2 L home O2 Nasal cannula. - ABG ordered. - CXR as above. - Procalcitonin and 0.21. We will trend daily until normalized. - Sputum culture when possible. - Urine Legionella and strep pneumo ordered.: All the systems negative - Viral respiratory panel ordered: Positive for PIV. Infection: Symptomatic management only - Nasal MRSA swab ordered. - Ox mask in place at 5 L. If patient decompensates we will place BiPAP currently DO NOT INTUBATE. - Continue vancomycin, and cefepime. - Patient has contrast allergy, will require pretreatment before exposure. - scopolamine patch for secretions. - Continue home albuterol nebulizers. 3. Acute Urinary tract infection, present on admission. Active. - UA straw hazy, large leukocyte esterase, 11-50 white cells, no epithelial. Culture pending. - Whitmore in place. - Patient received cefepime, vancomycin, and Levaquin in the emergency department. - Continue IV cefepime. 4. Elevated troponins, present on admission. Active.. - We will trend troponins every 6 hours. Initial value 0.037, then 0.036 - Likely demand ischemia. - Patient is not a candidate for Procedure, she cannot be heparinized due to anemia and low hemoglobin. This is communicated to on 03/01. He expressed his understanding. 5. Chronic macrocytic anemia, present on admission. Stable. - History of Waldenstrom's macroglobulinemia. - Hemoglobin on admission 9.8 previous values range from 7.6-10.5 from 2002 - 2016. - Consider oncology consult, Dr. Hamilton saw the patient 02/17/2017. -- A.m. hemoglobin dropped below 8, contacted got verbal permission for 2 units of transfusion. -- Patient will be transfused 2 units of PRBC 6. Chronic dysphagia -- Patient is on PEG tube feedings. Nutrition is consulted, will hold tube feeds until patient is more oriented. D5 half with 20 K potassium running at 100 mL/h after the blood transfusion is completed Acetaminophen for mild pain when necessary. Bowel regimen simethicone PRN and Senna Lax tablets via PEG tube 2 at bedtime for constipation. Zofran when necessary for nausea and vomiting. SubQ heparin held for now. SCDs in place. Disposition: Patient has been admitted as an inpatient status. Likely here greater than treatment. Discharge is dependent upon respiratory status, mental status. Discharge likely to [facility] or other long-term care facility. Patient's functional status has been deteriorating over the last month. Patient is DNR/DNI, family would like to receive other forms of treatment including antibiotics and fluids. Discussed NRB, Ventimask, BiPAP with 03/01. He is agreeable to all these measures at this time is alternate decision-maker Resuscitation Status: DNR/DNI:Do Not Resuscitate/Intubate ( is alternate decision-maker) Time spent 30 minutes Kamilah Dodge DO March 01, 2017 07:17
--- NOTE | 2017-03-02 06:40 | NUR ---
Respiratory/Skin/Blood Pt continues w/ wet lung sounds that improved some w/ scopalamine patch but pt continues to sound moist and has an occasional weak cough. Sats maintained in mid to high 90s, O2 titrated down to 2L oxymask, pt monitored on [employer]. Mepilex on sacral area changed, area cleaned. Pt Q2 turned. Pt also has right protruding scab on right back of neck. Skin report given to day RN. Per day RN second unit PRBC would take some time to be ready d/t vesta neg antibody and was not given until later in night. Pt tolerated this well, transfusion given slow per day RN report d/t respiratory status. Vitals stable w/ no signs of reaction. H&H up this morning.
[2017-03-02 06:50] LABS: Mean Corpuscular Hemoglobin 30.4 pg (27.0-35.0); Mean Corpuscular Volume 96.3 fL (81-100)
[2017-03-02] MEDS: Vancomycin Dose per Pharmacist XX SCH (08:30)
--- NOTE | 2017-03-02 09:15 | NUR ---
IV access L hand IV appears to be swollen and leaking, IV D/Cd intact. 20 gauge IV re-started in L hand. protective sleeve in place. Call light in place, will continue to monitor.
[2017-03-02] MEDS: Cefepime Inj 2,000 MG in Dextrose 5% Minibag Plus 50 ML IV SCH ×2 (09:25→22:37)
[2017-03-02] MEDS: 0.9% Sodium Chloride 250 ML IV SCH (10:50)
--- NOTE | 2017-03-02 12:11 | NUR ---
CRISTINA spoke with Corinne at [facility] who confirms they are able to accept pt back when ready with Dr. Marcial to follow. Marissa Casarez,[employer]
[2017-03-02] MEDS ORDERED: SIMETHICONE 80 MG PEG PRN (16:25)
[2017-03-02] MEDS ORDERED: GUAIFENESIN PEG PRN (16:25)
[2017-03-02] MEDS ORDERED: oxyCODONE 1 mg/mL 5 mL Liquid PEG PRN (16:25)
[2017-03-02] MEDS ORDERED: _Albuterol 2.5 mg/3 mL Neb NEB SCH (16:30)
[2017-03-02] MEDS ORDERED: guaiFENesin 20 mg/mL 10 mL Syrup TUBE PRN (16:55)
[2017-03-02] MEDS: 0.9% Sodium Chloride 1,000 ML IV SCH (17:04)
[2017-03-02] MEDS ORDERED: Vancomycin Serum Trough XX ONE ×2 (17:30→20:30)
[2017-03-02] MEDS ORDERED: Albuterol 1.25 mg/3 mL Inhalation Solution NEB SCH (20:00)
[2017-03-02] MEDS ORDERED: Simethicone 40 mg/0.6 mL 30 mL Oral Solution PEG PRN (20:30)
[2017-03-02] MEDS ORDERED: GABAPENTIN 200 MG PEG SCH (20:30)
[2017-03-02] MEDS: Vancomycin Inj 1,000 MG in IV Premix 1 EACH IV SCH (21:26)
--- NOTE | 2017-03-02 23:17 | PCM.PNMED ---
Subjective Date of Service March 02, 2017 Subjective Patient is seen and examined. She appears to be more alert and awake today that there is not much change in her communication status. Skin feels warm non- clammy. Eyes are tracking oxygen requirements have decreased Exam Vital Signs Vital Sign - Last Date Time Temp Pulse Resp B/P Pulse Ox O2 Delivery O2 Flow Rate FiO2 03/02/17 06:13 90 03/02/17 05:30 99 OxyMask 2.00 03/02/17 05:21 36.7 22 102/57 Intake and Output 03/01/17 03/01/17 03/02/17 Cumulative From/Thru 15:00 23:00 07:00 02/28/17 17:39 - 03/02/17 05:58 Intake Total 0 ml 750 ml 400 ml 3150 ml Output Total 1450 ml 600 ml 500 ml 2550 ml Balance -1450 ml 150 ml -100 ml 600 ml Intake Oral 0 ml 0 ml 0 ml 0 ml IV Total 450 ml 75 ml 2525 ml Packed Cells 300 ml 325 ml 625 ml Output Urine Total 1450 ml 600 ml 500 ml 2550 ml # Bowel Movements 0 1 1 Exam Gen.: Poorly responsive to verbal, opening eyes to verbal. HEENT: Cachectic appearing but slightly open trachea central Heart: Regular rate and rhythm no S3-S4 sounds Lungs: Bilateral crackles, diminished lung sounds anteriorly Abdomen: Flat, nondistended Extremities: Negative for edema Neuro: Responsive to pain, responsive to verbal, making hand gestures, eyes are tracking, PERRLA Skin: Warm to touch Vasculature: Palpable dorsalis pedis pulse IVs and Medications IV Fluids D5 half normal saline with 20 meq K in 100 mL/h Medications Reviewed: Medications were reviewed in detail Lab and Diagnostics Result Diagram: 03/02/17 0630 03/02/17 0630 Microbiology Urine cx pending. 02/28/17 @ 1904 Blood cx pending. 02/28/17/ @ 1645 X-Rays, CTs and MRIs X-RAY CHEST ONE VIEW, PORTABLE IMPRESSION: 1. Increased small bilateral pleural effusions with increased compressive atelectasis or consolidation. Left retrocardiac consolidation is also increased. Dictated by: Jae Pantoja M.D. on 02/28/2017 at 17:33 Assessment & Plan Patient is a 81 year old female with a history of Waldenstrom's macroglobulinemia, depression, previous hypoxic respiratory failure, pneumonia, GERD who presents to the ED via EMS from [facility] with decreased LOC that began this afternoon. EMS report that the patient has been unresponsive. Patient is DNR/DNI. She recently experienced a GLF in September that resulted in a cervical fracture s/p cervical fusion at [place]. Patient was recently seen by Dr. Hamilton in 02/2017. Patient is unable to provide history due to condition. 1. Acute Encephalopathy, present on admission. Active. - Differential includes aspiration pneumonia/bacterial pneumonia, urinary tract infection, progression of brain cancer. - Continue treat possible underlying etiology. - Blood cultures pending negative today - We will hold methylphenidate until patient is more oriented -- Called and discussed the case with patient's , he says that he will be in the hospital tomorrow a.m. He states that she was a little bit more responsive though she was mostly bedbound up until a week ago. She was able to walk in some capacity to a few steps with assistance. Her cognition has been declining per . - Not much change in her status but she appears more alert 2. Acute on chronic respiratory failure due to pneumonia, present on admission. Improving. - 1-2 L home O2 Nasal cannula. - ABG ordered. : No concern for lack of oxygenation and her carbon dioxide retention - CXR as above. - Procalcitonin and 0.21. We will trend daily until normalized. - Sputum culture when possible. - Urine Legionella and strep pneumo ordered.: All the systems negative - Viral respiratory panel ordered: Positive for PIV. Infection: Symptomatic management only - Nasal MRSA swab ordered.: Positive, maintain isolation - Ox mask in place at 5 L. If patient decompensates we will place BiPAP currently DO NOT INTUBATE.: She is only on 2 L all day - Continue vancomycin, and cefepime. - Patient has contrast allergy, will require pretreatment before exposure. - scopolamine patch for secretions. - Continue home albuterol nebulizers. 3. Acute Urinary tract infection, present on admission. Active. - UA straw hazy, large leukocyte esterase, 11-50 white cells, no epithelial. Culture pending. - Whitmore in place. - Patient received cefepime, vancomycin, and Levaquin in the emergency department. - Culture showed enterococcus sensitive to vancomycin 4. Elevated troponins, present on admission. Active.. - We will trend troponins every 6 hours. Initial value 0.037, then 0.036 - Likely demand ischemia. - Patient is not a candidate for Procedure, This is communicated to on 03/01. He expressed his understanding. 5. Chronic macrocytic anemia, present on admission. Stable. - History of Waldenstrom's macroglobulinemia. - Hemoglobin on admission 9.8 previous values range from 7.6-10.5 from 2002 - 2016. - Consider oncology consult, Dr. Hamilton saw the patient 02/17/2017. -- A.m. hemoglobin dropped below 8, contacted got verbal permission for 2 units of transfusion. -- Patient will be transfused 2 units of PRBC: Patient was given 2 units on . Hemoglobin remained stable. 6. Chronic dysphagia -- Patient is on PEG tube feedings. Nutrition is consulted, will hold tube feeds until patient is more oriented. D5 half with 20 K potassium running at 100 mL/h after the blood transfusion is completed on 03/01 -- Stop the D5 half normal saline fluids, start tube feeds this evening. -- Continue normal saline at 100 mL/h Acetaminophen for mild pain when necessary. Bowel regimen simethicone PRN and Senna Lax tablets via PEG tube 2 at bedtime for constipation. Zofran when necessary for nausea and vomiting. Waldenstrm's gammaglobulin anemia/anemia: -- The patient is stable after 2 units of PRBC -- We will give heparin 5000 every 12 hours for DVT prophylaxis Disposition: Patient has been admitted as an inpatient status. Likely here greater than treatment. Discharge is dependent upon respiratory status, mental status. Discharge likely to [facility] or other long-term care facility. Patient's functional status has been deteriorating over the last month. Patient is DNR/DNI, family would like to receive other forms of treatment including antibiotics and fluids. Discussed NRB, Ventimask, BiPAP with 03/01. He is agreeable to all these measures at this time is alternate decision-maker. Patient's pneumonia has been improving. She may be able to discharge back [facility]3 days Pain Evaluation: Adequate Pain Control VTE Prophylaxis: Sub-Q Heparin (Unfractionated) Resuscitation Status: DNR/DNI:Do Not Resuscitate/Intubate ( is alternate decision-maker) Kamilah Dodge DO March 02, 2017 08:05
[2017-03-03] VITALS (11 sets, daily range): BP systolic 91–103; BP diastolic 52–64; PULSE 58–78; RESP 18–24; O2SAT 88–100
--- NOTE | 2017-03-03 00:08 | NUR ---
enteral nutrition started jevity 1.5 per orders at 20 ml/hr with 40ml water flush. plan to check residuals. hob > 30 degrees. aspiration precautions in place Addendum: 03/03/17 at 0343 by YENNY WILLIS RN 0ml residual. increased rate to 30ml formula /hour
--- NOTE | 2017-03-03 04:41 | NUR ---
oxygen patient's bedside pulse oximtery 85% on 2 liters oxymask increased to 6 liters oxymask hob at 45 degrees.
[2017-03-03] MEDS: 0.9% Sodium Chloride 1,000 ML IV SCH ×2 (06:05→19:25)
[2017-03-03] MEDS: Vancomycin Dose per Pharmacist XX SCH (08:30)
[2017-03-03] MEDS: Heparin 5,000 Unit/mL Inj SUBQ SCH ×2 (08:39→22:06)
[2017-03-03] MEDS: Cefepime Inj 2,000 MG in Dextrose 5% Minibag Plus 50 ML IV SCH ×2 (08:40→22:08)
--- NOTE | 2017-03-03 09:00 | NUR ---
LIONEL signed with via Phone. MEHDI Serrato
[2017-03-03 09:58] LABS: Mean Corpuscular Hemoglobin 30.5 pg (27.0-35.0)
--- NOTE | 2017-03-03 11:41 | NUR ---
Social Work-readiness for discharge: Data:EMR reviewed. Pt is on day 3 of hospitalization for sepsis per H&P. Pt is not medically stable anticipate 2 more days. Pt has been residing at [facility] prior to admission. order received for SNF placement. SW spoke with pt's Walt via phone to discuss discharge planning, SW role explained. is in agreement for pt to return to SNF at discharge and is happy with [facility]. SW spoke with Corinne Tejadaronald, admissions, at [facility] who states they are able to accept pt back when medically stable. Pt has PEG tube as well. Paperwork placed in the chart. SW will continue to follow. Assessment:Pt who would benefit from SNF. Plan:Pt to discharge back to [facility] when medically stable with Dr. Marcial to follow. Paperwork placed in the chart. SW will continue to follow. MEHDI Serrato
--- NOTE | 2017-03-03 15:29 | NUR ---
IV access IV access on R forearm reddened and puffy, IV D/Cd intact, IV on L hand occluded, IV D/Cd intact. IV therapy contacted to restart IV. Will continue to monitor, frequent rounding in place.
--- NOTE | 2017-03-03 19:30 | NUR ---
respiratory patient with 2 liters oxymask. sats 82 % increased oxygen to [address] Rojas. ordered stat cxr. abg. lasix 20mg iv now. morphine 2mg iv now. patient opens eyes, unable to respond to commands. hob at 45 degrees iv fluids saline locked. per dr rojas orders.
[2017-03-03] MEDS ORDERED: Furosemide 10 mg/mL 2 mL Inj IV ONE ×2 (19:35→20:45)
--- NOTE | 2017-03-03 19:42 | ABG ---
DateTimeAnalyzed 19:37:00 -_ pH ____7.381 - 7.350 7.450 pCO2 ___42.3__ -mmHg 35.0 45.0 pO2 ___66.1__ -mmHg 69.0 116 HCO3- ___24.5__ -mmol/L 22.0 26.0 ABE ___-0.1__ -mmol/L -2.0 2.0 tHb ___10.3__ -g/dL O2Hb ___91.9__ -% COHb ____1.4__ -% MetHb ____0.9__ -% sO2 ___94.1__ -% FIO2 ___70.0__ -% Drawn By blf - Date/Time Notified____ 19:41:00 -_ Spontaneous_RR ___24.0__ -b/min Liter_Flow ____9.0__ -L/min Oxygen Device 1 _OXY MASK - Notified By BLF - Notified Whom ___DR. SOLIMAN - B 761 -mmHg tO2 ___13.4__ -Vol% Tyrone test _Positive -
--- NOTE | 2017-03-03 19:59 | DRSVH ---
PROCEDURE: X-RAY CHEST ONE VIEW, PORTABLE ([id number]) INDICATIONS: SHORNTESS OF BREATH TECHNIQUE: One view of the chest was acquired. COMPARISON: [facility], CR, XR CHEST 1VW (PORTABLE), 02/28/2017, 17:10. FINDINGS: Surgical changes and devices: ELECTRICIAN SECOND shunt is stable in appearance. Lungs and pleura: Moderate-sized bilateral pleural fluid collection is noted. There is increasing o pacification in the lung bases bilaterally suspicious for aspiration or pneumonia. Mediastinum: Mediastinal contours appear normal. Heart size is normal. Bones and chest wall: No suspicious bony lesions. Overlying soft tissues appear unremarkable. IMPRESSION: 1. Increasing bibasilar opacification suspicious for aspiration versus pneumonia. 2. Moderate-sized bilateral pleural effusions. Dictated by: Nadege Alvarado MD, PhD on 03/03/2017 at 19:57 Approved by: Nadege Alvarado MD, PhD on 03/03/2017 at 19:58
[2017-03-03] MEDS: Albuterol 2.5 mg/3 mL Inhalation Solution NEB SCH (20:23)
[2017-03-03] MEDS: Vancomycin Inj 1,000 MG in IV Premix 1 EACH IV SCH (21:01)
--- NOTE | 2017-03-03 21:30 | NUR ---
transfer called transfer report to [place] on [facility]. verbal report given.
--- NOTE | 2017-03-03 22:28 | NUR ---
Transfer Patient transferred to [facility] 2026 at 2220. SpO2 100% on 2L via oxymask. Patient somnolent, limited response to stimuli. Coarse breath sounds throughout all lung yin. Cefepime infusing.
[2017-03-04] VITALS (12 sets, daily range): BP systolic 82–105; BP diastolic 40–62; PULSE 61–78; RESP 12–22; O2SAT 90–100
--- NOTE | 2017-03-04 02:56 | PCM.PNMED ---
Subjective Date of Service March 03, 2017 Subjective Patient is seen later in the day during the daily rounding, also after her nurse paged the examiner stating that patient is requiring 9 L of oxygen to saturate 82%. Patient has been getting 3 different antibiotics, tube feeds with a every 4 hours water flushes. She also has 75 mL/h fluids. She appeared to be volume overloaded on exam, and Lasix 40 mg IV, morphine 2 mg IV push, and administered. IV fluids and tube feeds are discontinued. Chest x-ray verified fluid overload. ABG showed full oxygenation and no CO2 retention. Patient has never been much oriented and alert. Her labs have been improving, vital signs stable. During this hospital visit her baseline has been opening her eyes occasionally and falling back asleep. Subsequently her oxygenation status has improved, right hospitalist was given a sign out. Exam Vital Signs Vital Sign - Last Date Time Temp Pulse Resp B/P Pulse Ox O2 Delivery O2 Flow Rate FiO2 03/03/17 05:38 58 03/03/17 04:39 36.8 91/52 94 OxyMask 6.00 03/03/17 00:33 20 Intake and Output 03/02/17 03/02/17 03/03/17 Cumulative From/Thru 15:00 23:00 07:00 02/28/17 17:39 - 03/03/17 06:10 Intake Total 724 ml 946 ml 665 ml 5485 ml Output Total 600 ml 450 ml 3600 ml Balance 724 ml 346 ml 215 ml 1885 ml Intake Oral 0 ml 0 ml 0 ml IV Total 724 ml 946 ml 425 ml 4620 ml Tube Feeding 100 ml 100 ml Packed Cells 625 ml Tube Irrigant 140 ml 140 ml Output Urine Total 600 ml 450 ml 3600 ml # Bowel Movements 1 2 Exam Gen.: Poorly responsive to verbal, opening eyes to verbal. HEENT: Cachectic appearing but slightly open trachea central Heart: Regular rate and rhythm no S3-S4 sounds Lungs: Bilateral diffuse crackles and rales, diminished lung sounds anteriorly Abdomen: Flat, nondistended Extremities: Negative for edema, arms appear swollen Neuro: Responsive to pain, responsive to verbal, making hand gestures, eyes are tracking, PERRLA Skin: Warm to touch Vasculature: Palpable dorsalis pedis pulse IVs and Medications IV Fluids All fluids discontinued Medications Reviewed: Medications were reviewed in detail Lab and Diagnostics Result Diagram: 03/02/17 0630 03/02/17 0630 Microbiology Urine cx pending. 02/28/17 @ 1904 Blood cx pending. 02/28/17/ @ 1645 X-Rays, CTs and MRIs X-RAY CHEST ONE VIEW, PORTABLE IMPRESSION: 1. Increased small bilateral pleural effusions with increased compressive atelectasis or consolidation. Left retrocardiac consolidation is also increased. Dictated by: Jae Pantoja M.D. on 02/28/2017 at 17:33 Assessment & Plan Patient is a 81 year old female with a history of Waldenstrom's macroglobulinemia, depression, previous hypoxic respiratory failure, pneumonia, GERD who presents to the ED via EMS from [facility] with decreased LOC that began this afternoon. EMS report that the patient has been unresponsive. Patient is DNR/DNI. She recently experienced a GLF in September that resulted in a cervical fracture s/p cervical fusion at [facility]. Patient was recently seen by Dr. Hamilton in 02/2017. Patient is unable to provide history due to condition. 1. Acute CHF secondary to fluid overload: -- Patient is seen later in the day during the daily rounding, also after her nurse paged the examiner stating that patient is requiring 9 L of oxygen to saturate 82%. Patient has been getting 3 different antibiotics, tube feeds with a every 4 hours water flushes. She also has 75 mL/h fluids. She appeared to be volume overloaded on exam, and Lasix 40 mg IV, morphine 2 mg IV push, and administered. IV fluids and tube feeds are discontinued. Chest x-ray verified fluid overload. ABG showed full oxygenation and no CO2 retention. The staff are asked to call family and notify family. Patient has never been much oriented and alert. Her labs have been improving, vital signs hav e been stable. During this hospital visit her baseline has been opening her eyes occasionally and falling back asleep. Subsequently her oxygenation status has improved, night hospitalist was given a sign out on patient -- Consider further diuresis until symptoms resolve -- Consider an echocardiogram when her diuresis is complete 2. Acute Encephalopathy, present on admission. Active. - Differential includes aspiration pneumonia/bacterial pneumonia, urinary tract infection, progression of brain cancer. - Continue treat possible underlying etiology. - Blood cultures pending negative today - We will hold methylphenidate until patient is more oriented -- Called and discussed the case with patient's , he says that he will be in the hospital tomorrow a.m. He states that she was a little bit more responsive though she was mostly bedbound up until a week ago. She was able to walk in some capacity to a few steps with assistance. Her cognition has been declining per . - Not much change in her status but she appeared just a bit more alert on 03/02 -- No change in his status on 03/03 . Fluid overload as above 3. Acute on chronic respiratory failure due to pneumonia, present on admission. Improving. - 1-2 L home O2 Nasal cannula. - ABG ordered. : No concern for lack of oxygenation and her carbon dioxide retention 03/02, 03/03 - CXR as above. - Procalcitonin and 0.21. We will trend daily until normalized. - Sputum culture when possible. - Urine Legionella and strep pneumo ordered.: All the tests are negative - Viral respiratory panel ordered: Positive for PIV Infection: Symptomatic management only - Nasal MRSA swab ordered.: Positive, maintain isolation - Ox mask in place at 5 L. If patient decompensates we will place BiPAP currently DO NOT INTUBATE.: She is only on 2 L all day, but decompensated later in the day - Continue vancomycin, and cefepime. - Patient has contrast allergy, will require pretreatment before exposure. - scopolamine patch for secretions. - Continue home albuterol nebulizers. 4. Acute Urinary tract infection, present on admission. Active. - UA straw hazy, large leukocyte esterase, 11-50 white cells, no epithelial. Culture pending. - Whitmore in place. - Patient received cefepime, vancomycin, and Levaquin in the emergency department. - Culture showed enterococcus faecalis sensitive to vancomycin, penicillin 5. Elevated troponins, present on admission. Active.. - We will trend troponins every 6 hours. Initial value 0.037, then 0.036 - Likely demand ischemia. - Patient is not a candidate for Procedure, This is communicated to on 03/01. He expressed his understanding. 6. Chronic macrocytic anemia, present on admission. Stable. - History of Waldenstrom's macroglobulinemia. - Hemoglobin on admission 9.8 previous values range from 7.6-10.5 from 2002 - 2016. - Consider oncology consult, Dr. Hamilton saw the patient 02/17/2017. -- A.m. hemoglobin dropped below 8, contacted got verbal permission for 2 units of transfusion. -- Patient will be transfused 2 units of PRBC: Patient was given 2 units on . Hemoglobin remained stable. 7. Chronic dysphagia -- Patient is on PEG tube feedings. She has been receiving tube feeds but on that discontinued due to fluid overload Acetaminophen for mild pain when necessary. Bowel regimen simethicone PRN and Senna Lax tablets via PEG tube 2 at bedtime for constipation. Zofran when necessary for nausea and vomiting. Waldenstrm's gammaglobulin anemia/anemia: -- The patient is stable after 2 units of PRBC -- We will give heparin 5000 every 12 hours for DVT prophylaxis Disposition: Patient has been admitted as an inpatient status. Likely here greater than treatment. Discharge is dependent upon respiratory status, mental status. Discharge likely to [facility] or other long-term care facility. Patient's functional status has been deteriorating over the last month. Patient is DNR/DNI, family would like to receive other forms of treatment including antibiotics and fluids. Discussed NRB, Ventimask, BiPAP with 03/01. He is agreeable to all these measures at this time is alternate decision-maker. Patient's pneumonia has been improving. She needs further diuresis to get the fluid off of her and he may she may be able to go home in 2- 3 days VTE Prophylaxis: Sub-Q Heparin (Unfractionated) Resuscitation Status: DNR/DNI:Do Not Resuscitate/Intubate ( is alternate decision-maker) Time spent 25 min Kamilah Dodge DO March 03, 2017 08:45
[2017-03-04 04:38] LABS: TROPONIN T 0.012 ug/L (0.0-0.011)
[2017-03-04 04:51] LABS: Mean Corpuscular Hemoglobin 30.6 pg (27.0-35.0)
[2017-03-04] MEDS: Albuterol 2.5 mg/3 mL Inhalation Solution NEB SCH ×7 (07:00→21:05)
[2017-03-04] MEDS: Vancomycin Dose per Pharmacist XX SCH (08:30)
[2017-03-04] MEDS: Heparin 5,000 Unit/mL Inj SUBQ SCH ×2 (09:08→21:50)
[2017-03-04] MEDS: Cefepime Inj 2,000 MG in Dextrose 5% Minibag Plus 50 ML IV SCH (09:09)
--- NOTE | 2017-03-04 13:14 | NUR ---
NUTRITION FOLLOW UP: ASSESS: 82 YO F admitted for decreased LOC. Pt came from [facility]. She has a PEG tube for nutrition. Enteral nutrition started, advanced to goal rate but now on hold due to fluid overload. Palliative consulted for goals of care. Pt has been somnolent per notes. PMHX: Waldenstrm's macroglobulinemia, ependymoma with radiation therapy, depression, PNA, hypoxic respiratory failure, GERD LABS: Reviewed. K+ 3.0, Glu 104, Ca 10.9, Alb 2.7 MEDS: Reviewed. Senna. GI: 1 BM (03/03) SKIN: Rock 9, open wound on sacrum CURRENT WTS: 51kg, BMI 19.3kg/m2 HOME TF: Fibersource HN @ 50 ml/hr x 24 hrs w/ 30cc fluid flush q 1 hr to provide 1440 kcal and 65 g protein. NUTRITION SUPPORT: (ON HOLD) Jevity 1.5 via PEG at goal rate 42 ml/hr. DIET: NPO ESTIMATED NEEDS: Calories: 9991-9858 kcal/day (25-30 kcal/kg BW) Protein: 50-75 g/day (1.0-1.5 g/kg BW) Fluids: 6254-1693 ml/day (30-35 ml/kg) NUTRITION DIAGNOSIS: 1.) Inadequate oral intake related to chronic disease as evidence by need for TF via PEG for adequate nutrition.---PERSISTS. NUTRITION INTERVENTION: 1.) Once able, recommend restarting enteral nutrition via PEG tube. Recommend re-start TF of Jevity 1.5 @ 25 ml/hr, advance by 10 ml q 4 hrs until reach goal rate of 42 ml/hr to provide 1450 kcal and 62 g protein (100% estimated needs). Fluid flush 40 ml q 4 hr. MONITOR / EVALUATE: NPO status, TF re-start, wt, labs, POC, GI/nutrition status. Follow per high nutrition risk guidelines.
--- NOTE | 2017-03-04 13:49 | PCM.CONPAL ---
Date of Service March 04, 2017 Date of Hospital Admission: February 28, 2017 at 19:50 Date of Palliative Consult: March 04, 2017 Requesting Provider: RADHA PHELPS DO Comment: Patient's PCP is Dr. Aditya Nguyễn. Reason Palliative Care Consult: Goals of Care Discussion Reason for Consultation Palliative Care received verbal order from Dr Dodge 03/01/17 to assist with goals of care. Patient is an 82 year old woman who was admitted 02/28/17. Patient is already DNR/DNI. Case discussed in Palliative Care and due to PC caseload, we will not meet with patient/family 03/01. PC manager of data informed Dr Dodge of this today, and Dr Dodge agreed to inform the family that patient is declining. Will f/u next week if patient still here. Walt Awan () [phone] Hospital Unit @time of consult: Progressive Care (room 2026) Palliative Care Recommendation Summary of palliative recommendations: -Symptom management (Pain/other): per Attending -DPOA/Advanced Directives/POLST: 1. Attending Dr. Dodge discussed family goals with on 03/01: Code status is DNR/DNI, family would like to receive other forms of treatment including antibiotics and fluids. Pt has a PEG tube in place currently. Attending Dr. Dodge discussed NRB, Ventimask, BiPAP and would want any of these measures, if needed. is designated decision-maker because pt is not capacitated due to her encephalopathy. -Family/emotional support: Walt Awan () [phone] -Spiritual support Family Goals: Palliative Care has left a phone message with Mr. Awan, asking to meet with him 03/05 for further goals clarification, to see if he might be ready to consider hospice for his . Time of meeting to be determined. Problems: Disposition Patient is a resident at [facility] and patient's spouse reports that she is total care. Patient has had HH in the past. Patient has a WC. Currently the plan is for the patient to return to [facility] when discharged per spouse. Resuscitation Status Resuscitation Status: DNR/DNI:Do Not Resuscitate/Intubate ( is alternate decision-maker) POLST Updates/Changes Antibiotics: Use ABX if can Prolong Life Artificially Admin Nutrition: Long-Term Nutrition by Tube Feeding POLST Review Outcome: No Change Pt History History of Present Illness Deana Awan is an 82-year-old lady who presented to the [facility] Emergency Department by way of EMS from [facility] with decreased level of consciousness. She has significant past medical history of Waldenstrm 's macroglobulinemia, ependymoma with radiation therapy, depression, previous pneumonia and hypoxic respiratory failure, GERD. Patient is DNR/DNI. She recently experienced a GLF in September that resulted in a cervical fracture s/p cervical fusion at [facility]. Patient was seen by Dr. Hamilton in 02/2017. Patient is unable to provide history due to condition. Other information obtained from Dr. Hamilton 02/2017 note.: The patient...was previously followed at [facility] for Waldenstrom's macroglobulinemia. She had developed ataxia and was discovered by Dr. Nguyễn on [place] to have a brain tumor, which was ultimately determined to be an ependymoma. This was originally resected in January 2016. She subsequently had good recovery but had residual disease left behind. In addition, she had stable Waldenstrom's macroglobulinemia with IgM, free kappa and M-spike all relatively stable. She was last seen at [facility] in August 2016. She had fell and struck her head at home on October 07, 2016 and went [facility] with a cervical fracture, and ultimately required a cervical fusion. She has been at [facility] since October 30. She had a PEG placement in early January 2017 and was recently hospitalized at [facility] from February 03 to February 06 with pneumonia. 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 She was recommended to undergo adjuvant radiation, however, declined, and in September 2016 was admitted to [facility] with increasing confusion and ataxia. 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 A [employer] shunt was placed at that time and she was recommended to undergo salvage radiation therapy to the site of recurrence. She received brain radiation starting November 21 and completed on December 31 with an initial volume extending down into the upper portion of spinal canal, followed by boost off the spinal cord extension, primary mass in the 4th ventricle. Total dose to majority of her tumor was said to be 50.4 Gy. For the last several months, she has been very debilitated, but her reports that in the past month she has deteriorated significantly and now spends most of her time in bed and not communicating; she is able to sit at the side of the bed and bear weight on her feet with assistance and communicates with brief words or at most a phrase. Hospital Course: She was admitted for acute encephalopathy of unclear origin ( aspiration pneumonia/bacterial pneumonia, UTI, brain cancer progression) that now appears to be Parainfluenza infection and UTI (enterococcus faecalis). She is receiving IV antibiotics for the UTI. Her MRSA nasal swab was positive and she is on isolation. She developed CHF due to fluid overload in hospital and is now improved with gentle diuresis. She has elevated troponins likely due to demand ischemia. She needed 2 units PRBC transfusion 03/01 due to chronic macrocyclic anemia related to her Waldenstrom's macroglobulinemia. Today is Hospital Day 4. Past Medical History Significant PMH Noted: 1. C1 fx from GLF 2. Waldenstrom's macroglobulinemia 3. Depression 4. 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 Hydrocephalus 6. O2 dependent 7. Pleural effusion 8. Pneumonia 9. GERD Surgical History 1. neck fracture and surgery Oct 2015 at [facility] 2. PEG tube placed 01/21/2017 Family History Unable to obtain due to patient condition. Social History Hx Alcohol Use: No Hx Substance Use: No Smoking Status: Never Smoker Medications Current Medications: Current Medications Albuterol 2.5 mg QID NEB; Start 03/02/17 at 16:30; Stop 03/02/17 at 16:52; Status DC Citalopram Hydrobromide 20 mg DAILY PEG Last administered on 03/04/17 09:08; Admin Dose 20 MG; Start 03/03/17 at 08:30 Methylphenidate HCl 5 mg BID PO Last administered on 03/04/17 09:08; Admin Dose 5 MG; Start 03/02/17 at 20:30 Oxycodone HCl 5 mg Q4H PRN PEG; Start 03/02/17 at 16:25 Senna 17.2 mg HS PO Last administered on 03/03/17 21:58; Admin Dose 17.2 MG; Start 03/02/17 at 21:00 Non-Formulary Medication 200 mg TID PEG; Start 03/02/17 at 20:30; Status UNV Non-Formulary Medication 10 ml Q4H PRN PEG; Start 03/02/17 at 16:25; Status UNV Non-Formulary Medication 80 mg 80 mg TID PRN PEG; Start 03/02/17 at 16:25; Status UNV Sodium Chloride 1,000 ml @ 75 mls/hr [id number] IV Last administered on 03/02/17 17:04; Admin Dose 100 MLS/HR; Start 03/02/17 at 16:45; Stop 03/03/17 at 20:08; Status DC Guaifenesin 400 mg Q4H PRN TUBE; Start 03/02/17 at 16:55 Albuterol 1.25 mg QIDRT NEB; Start 03/02/17 at 20:00; Status Cancel Albuterol 2.5 mg QIDRT NEB Last administered on 03/04/17 11:37; Admin Dose 2.5 MG; Start 03/02/17 at 20:00 Simethicone 80 mg TID PRN PEG; Start 03/02/17 at 20:30 Gabapentin 200 mg TID PEG Last administered on 03/04/17 09:08; Admin Dose 200 MG; Start 03/02/17 at 20:30 Heparin Sodium (Porcine) 5,000 unit Q12 SUBQ Last administered on 03/04/17 09: 08; Admin Dose 5,000 UNIT; Start 03/03/17 at 08:30 Scheduled ([Oxygen]) 3 L NASAL Continuous Albuterol Neb Soln (Albuterol Neb Soln) 2.5 Mg/3 Ml Vial.neb 2.5 MG INHALATION QID Citalopram Hydrobromide (Celexa) 20 Mg Tablet 20 MG PEG DAILY Gabapentin Oral Soln (Gabapentin Oral Soln) 250 Mg/5 Ml Solution 200 MG PEG TID Heparin Sod (Porcine) (Heparin Sod 5,000 Unit/0.5 ml) 0.5 Ml Ml 0.5 ML INJ TID Methylphenidate (Methylphenidate) 5 Mg Tablet 5 MG PO BID Scopolamine (Transderm-Scop) 1 Each Patch.td72 1 EACH TD Q72HRS Sennosides (Senna) 8.6 Mg Tablet 17.2 MG PEG HS Scheduled PRN Acetaminophen Liquid (Acetaminophen Liquid) 160 Mg/5 Ml Solution 640 MG PEG QID PRN PRN For Pain Guaifenesin (Liquituss GG) 200 Mg/5 Ml Liquid 10 ML PEG Q4H PRN PRN For Cough Magnesium Hydroxide (Milk of Magnesia) 400 Mg/5 Ml Oral.susp 400 MG PO MORNING PRN PRN For Constipation Not to exceed 2X month Oxycodone (Roxicodone) 5 Mg Tablet 5 MG PEG Q4H PRN PRN For Pain Simethicone (Gas-X) 80 Mg Tablet 80 MG PEG TID PRN PRN For Indigestion Objective Findings Exam Vital Sign - Last Date Time Temp Pulse Resp B/P Pulse Ox O2 Delivery O2 Flow Rate FiO2 03/04/17 12:27 87/50 03/04/17 12:17 36.3 65 20 98 OxyMask 20.00 Intake and Output 03/03/17 03/03/17 03/04/17 Cumulative From/Thru 15:00 23:00 07:00 02/28/17 17:39 - 03/04/17 06:22 Intake Total 1338 ml 282 ml 7105 ml Output Total 375 ml 1300 ml 5275 ml Balance 963 ml -1018 ml 1830 ml Intake Oral 0 ml 0 ml 0 ml IV Total 219 ml 282 ml 5121 ml Tube Feeding 572 ml 672 ml Packed Cells 625 ml Tube Irrigant 547 ml 687 ml Output Urine Total 375 ml 1300 ml 5275 ml # Bowel Movements 1 3 General: No acute distress, Other (Asleep, unable to awaken.) HEENT: Mucous Membranes Dry, Other (scop patch under right mandiblule) Heart: Regular Rate/Rhythm, Bradycardia (rate of 60 on auscultation) Lungs: Coarse Abdomen: Bowel Tones x4, Soft, Non Tender Extremities: Warm Lab/Diagnostics Lab and Imaging results reviewed in detail in EMR. Time spent Total time 50 minutes; >50% face to face with patient and/or family, providing counselling regarding plans and recommendations, and in care coordination with his/her medical teams. copies to: Aditya Nguyễn MD, Cynthia MD March 04, 2017 13:49 Ada Reynolds MD March 04, 2017 13:49 # Bowel Movements 1 3 Lab/Diagnostics Lab and Imaging results reviewed in detail in EMR. Time spent Total time [ ] minutes; >50% face to face with patient and/or family, providing counselling regarding plans and recommendations, and in care coordination with his/her medical teams. I also spent an additional [ ] minutes counseling for advanced care planning with the patient/the patients family/the surrogate decision maker. copies to: Aditya Nguyễn MD, Cynthia MD March 04, 2017 13:49
--- NOTE | 2017-03-04 16:31 | NUR ---
Suctioning Assessment Pt found on 9L OM this morning with sats around 94%. Bilateral BS coarse throughout all lung yin. Pt resting and in no distress. I attempted to suction her via nose and mouth with little results. Pt has almost no gag reflex and does not cough. Another RT and I worked together and had good results. Pt returned to OM at 2LPM. This afternoon I was called by the RN due to increased oxygen needs (11L OM sats 90%). NT, Oral and cough assist were all tried and again I was only able to clear a small amount of secretions. RN updated
--- NOTE | 2017-03-04 17:00 | DRSVH ---
PROCEDURE: CT CHEST WITHOUT CONTRAST ([id number]) INDICATIONS: SOB, PNA TECHNIQUE: Noncontrast 5 mm thick sections acquired from the pulmonary apices to the posterior costophrenic angl es. 7 mm thick coronal and sagittal MIP reformats were then acquired. For radiation dose reduction, the following was used: automated exposure control, adjustment of mA and/or kV according to patient size. COMPARISON: Merged With [facility], CT, CT ANGIO CHEST PE, 02/04/2017, 19:01. FINDINGS: Image quality: Excellent. Lungs and pleura: No acute air space opacities. Increased, small to moderate bilateral pleural effu sions. Increased bilateral lower lobe airspace opacity. No pneumothorax. Central and peripheral airw ays are patent and normal in caliber. Mediastinum: Heart size is normal. No pericardial effusion. No mediastinal adenopathy by size crit eria. Thoracic aorta and central pulmonary arteries are normal in size. Esophagus is normal in chava richard. No hiatal hernia. Bones and chest wall: No suspicious bony lesions. No vertebral body compression fractures. No axil kala or supraclavicular adenopathy by size criteria. Thyroid gland demonstrates no change in low-den sity bilateral nodules. Abdomen: Visualized upper abdominal solid organs and bowel loops appear normal in the absence of con trast. IMPRESSION: 1. Increased bilateral lower lobe pneumonia, with bilateral parapneumonic effusions. 2. No change in bilateral thyroid nodules. Dictated by: Franco Childress M.D. on 03/04/2017 at 16:53 Approved by: Franco Childress M.D. on 03/04/2017 at 16:59
--- NOTE | 2017-03-04 17:07 | DRSVH ---
PROCEDURE: CT BRAIN WITHOUT CONTRAST ([id number]) INDICATIONS: decreased LOC, brain tumor and SENIOR COMMISSIONS ANALYST shunt assess TECHNIQUE: Noncontrast 4.5 mm thick angled axial sections acquired from the foramen magnum to the vertex, with c oronal reformats. COMPARISON: None. FINDINGS: Image quality: Excellent. CSF spaces: There is a bam hole in the right frontal bone with a shunt into the frontal horn of the right lateral ventricle. Basal cisterns are patent. No extra-axial fluid collections. The ventricle s are symmetric in size and shape. The ventricles have enlarged since the previous CT with a shunt tu be in place on 10/19/16. The tip of the current tube lies against the septum pellucidum, minimally more centrally positioned than the previous images show the shunt tube to be. Brain: No intracranial bleeds or masses. There is minimal cerebral volume loss for age, with result ant ventricular and sulcal prominence. There are periventricular and deep white matter chronic small vessel ischemic changes. There is intracranial internal carotid artery atherosclerosis. Skull and face: Calvarium and visualized facial bones appear intact, without suspicious lesions. Pre vious occipital craniotomy with a plate. Sinuses: The visualized portions maxillary sinuses suggest small air fluid levels bilaterally. There is prominent mucus or fluid in the sphenoid sinus with what appears to be an air-fluid level and ther e is near opacification of the maxillary sinuses. Frontal sinuses show small air-fluid levels as well . There is opacification 5 soft tissue or fluid density of the mastoid air cells bilaterally. IMPRESSION: Multiple air-fluid levels in sinuses suggesting the possibility of diffuse sinus infectio n. Previous occipital surgery with a plate present. Enlarging ventricular size bilaterally with slight change in shunt tube position now against the sept um pellucidum compared to the previous study from [facility] 10/19/16 which showed the tip in the cent ral aspect of the right frontal horn. Hydrocephalus is occurring. Dictated by: Justin Peterson M.D. on 03/04/2017 at 16:54 this information was related to the patient 's clinician at the time of this dictation. Approved by: Justin Peterson M.D. on 03/04/2017 at 17:06
[2017-03-04] MEDS: Meropenem Inj 1,000 MG in IV Premix 1 EACH IV SCH (17:22)
[2017-03-04] MEDS ORDERED: Furosemide 10 mg/mL 2 mL Inj IVPUSH ONE (18:20)
--- NOTE | 2017-03-04 18:24 | PCM.PNMED ---
Subjective Date of Service March 04, 2017 Subjective Deana Awan is a 81 year old woman with a history of Waldenstrom's macroglobulinemia, depression, previous hypoxic respiratory failure, pneumonia, GERD who presents to the ED via EMS from [facility] with decreased LOC that began this afternoon. EMS report that the patient has been unresponsive. Patient is DNR/DNI. She recently experienced a GLF in September that resulted in a cervical fracture s/p cervical fusion at [place]. Patient was recently seen by Dr. Hamilton in 02/2017. Patient is unable to provide history due to condition. Hospital day #5 Overnight: Patient was transferred to the [facility] due to worsening respiratory status. Today: The patient was not responsive this morning to painful stimulus or verbal stimulus. ROS is not obtainable. Exam Vital Signs Vital Sign - Last Date Time Temp Pulse Resp B/P Pulse Ox O2 Delivery O2 Flow Rate FiO2 03/04/17 16:08 36.8 74 22 97/55 93 Breathing Treatment 13.00 Intake and Output 03/03/17 03/03/17 03/04/17 Cumulative From/Thru 15:00 23:00 07:00 02/28/17 17:39 - 03/04/17 06:22 Intake Total 1338 ml 282 ml 7105 ml Output Total 375 ml 1300 ml 5275 ml Balance 963 ml -1018 ml 1830 ml Intake Oral 0 ml 0 ml 0 ml IV Total 219 ml 282 ml 5121 ml Tube Feeding 572 ml 672 ml Packed Cells 625 ml Tube Irrigant 547 ml 687 ml Output Urine Total 375 ml 1300 ml 5275 ml # Bowel Movements 1 3 Exam Gen.: unresponsive, frail, elderly woman, in a hospital bed HEENT: Mouth open, eyes closed, trachea midline. Heart: Regular rate and rhythm, no S3-S4 sounds, no murmur Lungs: Bilateral diffuse crackles and rales, somewhat increased work of breathing. Abdomen: Flat, nondistended Extremities: Negative for edema, arms appear swollen Neuro: Not responsive to pain, not responsive to voice. Moves extremities without prompting. Skin: Warm to touch Vasculature: Palpable dorsalis pedis pulse IVs and Medications Medications Reviewed: Medications were reviewed in detail Lab and Diagnostics Result Diagram: 03/04/17 0345 03/04/17 034 Microbiology Urine culture: Enterococcus fecalis Respiratory PCR: Parainfluenza 3 X-Rays, CTs and MRIs X-RAY CHEST ONE VIEW, PORTABLE IMPRESSION: 1. Increased small bilateral pleural effusions with increased compressive atelectasis or consolidation. Left retrocardiac consolidation is also increased. Dictated by: Jae Pantoja M.D. on 02/28/2017 at 17:33 Assessment & Plan Deana Awan is a 81 year old woman with a history of Waldenstrom's macroglobulinemia, depression, previous hypoxic respiratory failure, pneumonia, GERD who presents to the ED via EMS from [facility] with decreased LOC that began this afternoon. EMS report that the patient has been unresponsive. Patient is DNR/DNI. She recently experienced a GLF in September that resulted in a cervical fracture s/p cervical fusion at [place]. Patient was recently seen by Dr. Hamilton in 02/2017. Patient is unable to provide history due to condition. Hospital day #5 Fluid overload, not present on admission - Continue IV Lasix - Consider an echocardiogram Acute Encephalopathy, present on admission. Worsening. - Differential includes aspiration pneumonia/bacterial pneumonia, urinary tract infection, progression of brain cancer. - Continue treat possible underlying etiology. - We will hold methylphenidate until patient is more oriented - CT of brain per ID. Acute on chronic respiratory failure due to viral pneumonia secondary to parainfluenza virus, present on admission. Worsening - 1-2 L home O2 Nasal cannula. - If patient decompensates we will place BiPAP as needed - scopolamine patch for secretions. - Continue home albuterol nebulizers. Acute urinary tract infection with E. feacalis, present on admission. Active. - UA straw hazy, large leukocyte esterase, 11-50 white cells, no epithelial. - Whitmore in place - Culture showed enterococcus faecalis sensitive to vancomycin, will continue. - Infectious disease consulted, appreciate time and expertise. Elevated troponins, present on admission. Active. - Likely demand ischemia. - Medical management only. This was communicated to on 03/01. He expressed his understanding. 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 Stable. - Hemoglobin on admission 9.8 previous values range from 7.6-10.5 from 2002 - 2016. - Consider oncology consult, Dr. Hamilton saw the patient 02/17/2017. Chronic dysphagia - Patient is on PEG tube feedings. She has been receiving tube feeds but on that discontinued due to fluid overload Disposition: Patient's status is guarded. Anticipate patient will in the hospital for a prolonged stay as she recovers. VTE Prophylaxis: Sub-Q Heparin (Unfractionated) Resuscitation Status: DNR/DNI:Do Not Resuscitate/Intubate ( is alternate decision-maker) Attending Statement I interviewed and examined the patient on rounds today. Aspiration pneumonia seems to be main issue. Considering other explanations for subacute neurologic decline. I agree with the assessment and plan as stated above. Meghan Tellez DO March 04, 2017 18:10 Kwadwo Garcia MD March 05, 2017 17:10
--- NOTE | 2017-03-04 18:32 | NUR ---
Mentation Pt somnolent during the shift. This morning she opened her eyes with repeated stimulation but later in the afternoon did not. After receiving a nebulizer treatment she had her eyes open briefly this afternoon but could not follow commands. Continuing on 10L oxygen via oxy mask. Repositioning for comfort.
--- NOTE | 2017-03-04 18:52 | CONS ---
[address] [address] CONSULTATION REPORT PATIENT: CITLALI FERNANDEZ : 1935 MR#: [id number] ADMIT: 02/28/2017 JOB ID: [id number] DATE OF SERVICE: 03/04/[address] Brian Garcia for this consult. REASON FOR CONSULT: Decreased mental status with concerns regarding pneumonia and/or urinary tract infection. HISTORY OF PRESENT ILLNESS: The patient is an unfortunate, 82-year-old woman with a longstanding history of Waldenstrom, which apparently has been doing fairly well over the past several years. In addition, however, she has developed a brain tumor, and ependymoma, which was resected back about a year ago. Radiation was recommended, to follow the radiation, but apparently was declined initially. Subsequently, the patient developed hydrocephalus, required a BIOMEDICAL ENGINEERING TECHNOLOGIST shunt and then a long course of radiation therapy which finished in December. The patient has been residing at the [facility] nursing [facility] since about October. Her reports that throughout her radiation therapy she was declining and once radiation therapy finished about two months ago it seemed as if her decline even accelerated. Over the past three weeks or so she has been not participating much with physical therapy at the care home [facility], and in fact, has gone on to become essentially unresponsive and bedridden. She is fed via PEG tube that was installed about a month ago and has recently been treated for what was thought to be an aspiration pneumonia. On the , she was transferred to this facility from [facility] because of profoundly decreased mental status and this continued unresponsive mental state which was unexplained. Since admission, it has been felt that perhaps she was suffering from possible UTI, pneumonia, fluid overload or a combination of structural and infectious disease problems contributing to her declining mental and functional status. Numerous investigations have been conducted without clear-cut diagnosis and ID input is requested regarding antibiotics, which currently include vancomycin and cefepime. No BARREL ENDSHAKE ADJUSTER imaging has been done during this admission. However, the tells us there has been no BARREL ENDSHAKE ADJUSTER imaging since September or October time frame. Also included in the recent history of significant events was a fall which led to his cervical fracture which had to be stabilized at [facility]. That occurred back towards the end of 2015. PAST MEDICAL HISTORY: 1. Ependymoma. a. Diagnosed January 2016 with resection. b. BIOMEDICAL ENGINEERING TECHNOLOGIST shunt placed. c. Radiation therapy to the ependymoma done in the spring, ending about mid December. 2. Waldenstrom, which is said to be in remission. 3. Cervical neck fracture with fusion, late 2015. 4. Depression. 5. Chronic oxygen-dependent respiratory failure of unknown etiology. 6. Status post PICC January 2017. 7. History of recurrent pneumonias. SOCIAL HISTORY: The patient is . Her lives on [address] and of course she recently lived on [place] as well. She has been residing at [facility]. for the past 4-5 months. She is a lifetime nonsmoker, nondrinker, according the notes in the chart. FAMILY HISTORY: Cannot be obtained from this completely unresponsive patient. REVIEW OF SYSTEMS: Cannot be obtained from this completely unresponsive patient. PHYSICAL EXAMINATION: Reveals an afebrile woman, temp 36.3, pulse 65, respiratory rate 20. Note that she has been afebrile since admission now four days ago. Blood pressure is declining. Currently 88/45. She is saturating poorly and now down to about 88% on 11 L by face mask. That is much worse than she has been over her days in the hospital when she has primarily been on a couple liters and is now requiring very high flow. Examination the head: No recent trauma. She has an easily palpable shunt which extends over the right side of the head down into the neck and is nontender, noninflamed along its course. Eyes cannot be opened and it is unclear to me if these are being held shut by the patient or if this is a manifestation of some larger neurologic picture. Oral cavity cannot be examined as the mouth is closed. The patient has face mask oxygen on and she is breathing a little bit rapidly in the low 20s at this moment. Neck without mass though one can palpate a mass or lymph nodes. One can palpate the BIOMEDICAL ENGINEERING TECHNOLOGIST shunt traversing the right side of the neck. Lungs are notable for decreased breath sounds at the bases and this is quite striking. Cardiac tones: Regular rate and rhythm without significant murmur. Abdomen has a PEG tube. Appears uninflamed, uninfected. The abdomen slightly distended. She has a Whitmore catheter and this is said to be new since her admission here and she did not have one at [facility]. The extremities are generally wasted with foot drop apparently in the ankles bilaterally, perhaps due to the lack of ambulation or stretching. There is no evidence for synovitis. There is no skin rash and there is no apparent skin breakdown. On neurologic exam, the patient is unresponsive. Her arms are clenched in about a 45-degree angle with some ongoing tremor which could represent decorticate posturing. The patient's arms cannot be moved though and it also raises the possibility of active resistance to exam. LABORATORIES: Include white count 11,300, platelet count 194,000. Creatinine 0.63, albumin 2.7. LFTs are normal. Urinalysis 11-50 white cells. Urine Legionella and pneumococcal antigens are negative. A respiratory viral PCR panel was positive for parainfluenza virus 3. A MRSA screen is negative. Blood culture negative. Urine grew Enterococcus faecalis, which is penicillin susceptible, but the Enterococcus is sensitive to vancomycin. IMAGING: Includes two separate chest x-rays that I reviewed personally. These show moderately sized bilateral pleural effusions and what appears to be atelectasis versus pneumonia, perhaps more on the right than left by my interpretation. IMPRESSION: This is an unfortunate woman with what sounds to be a progressive neurologic process likely related to her brain tumor which was not completely resected and then required BIOMEDICAL ENGINEERING TECHNOLOGIST shunting and eventually radiation. On top of what appears to be a progressive decline in mental status likely due to a primary central nervous system process, the patient also has evidence of respiratory insufficiency which is likely due to failure to clear secretions as well as some component of aspiration pneumonitis. The presence of the parainfluenza virus also indicates that this, at least recently, was a significant pathogen as parainfluenza virus is one of the most problematic respiratory viruses, especially for the immunocompromised host. Her pleural effusions are also not helping her respiratory status and they seem to be enlarging. These are not on the basis of parainfluenza virus and likely represent fluid overload, congestive heart failure or neurogenic pulmonary edema perhaps. It seems unlikely that the patient has any abdominal infection based on her exam, but the possibility of urinary tract infection is difficult to exclude. She has a modest pyuria and grew the Enterococcus. Complicating things a bit is a history of childhood PENICILLIN allergy which is probably not of much significance at this juncture. When the patient was a child, penicillin was a new drug and her reaction likely represented some impurity or problem due to some concurrent infection rather than PENICILLIN itself, though it is unclear to me if we need to use penicillin at this moment. RECOMMENDATIONS: 1. After prolonged discussion with the patient's , he would prefer if we do get some imaging to try and perhaps explain her progressive decline. The logical way to start here would be with a CT scan of the brain which would be quicker and easier, given her tenuous status, than an MRI scan which would be more useful clinically. 2. Noncontrast CT of the chest will be obtained at the same time as the noncontrast CT of the brain. 3. I would change the antibiotics from vancomycin and cefepime to vancomycin and meropenem. Meropenem dose could be 1 g IV q.8. 4. The vancomycin will be adequate to treat the Enterococcus in the urine which I doubt is the main problem here. 5. Will repeat blood cultures and a procalcitonin this afternoon. 6. Will continue to closely follow this complex patient with you. 7. Consider tapping pleural effusions. 8. Echocardiogram could be considered to assess her left ventricular function. 9. Will continue to follow this complex patient with you.
[2017-03-04] MEDS: Vancomycin Inj 1,000 MG in IV Premix 1 EACH IV SCH (21:50)
[2017-03-05] VITALS (8 sets, daily range): BP systolic 84–90; BP diastolic 47–49; PULSE 70–92; RESP 18–24; O2SAT 87–99
[2017-03-05] MEDS: Meropenem Inj 1,000 MG in IV Premix 1 EACH IV SCH ×2 (00:41→09:53)
--- NOTE | 2017-03-05 03:40 | NUR ---
No Tele/Suctioning/Non-responsive Non responsive most of the time, no reaction on first assessment, RT suctioned upper airway and Sats improved . 7 L O2 titrated down from 10 at shift beginning, Not on Tele, NS @ TKO and ABX IV. She opened her eyes for the first time this shift when being suctioned, pupils normal reaction to light. Moved lips to have moisture balm applied . Arms and legs rigid contraction.
[2017-03-05] MEDS: Albuterol 2.5 mg/3 mL Inhalation Solution NEB SCH ×4 (07:35→20:45)
[2017-03-05 08:14] LABS: BASOPHILS % (AUTO) 0.7 % (0-3); EOSINOPHILS % (AUTO) 3.1 % (0-5); MONOCYTES % (AUTO) 10.4 % (4-12); Mean Corpuscular Hemoglobin 30.3 pg (27.0-35.0); Mean Corpuscular Volume 97.2 fL (81-100); NEUTROPHILS % (AUTO) 68.8 % (40-74); Platelet Count 194 bil/L (150-400)
[2017-03-05] MEDS: Vancomycin Dose per Pharmacist XX SCH (08:30)
[2017-03-05] MEDS: Meropenem 1 Gm/100 mL NS Minibag Plus IV SCH ×4 (08:30→17:35)
--- NOTE | 2017-03-05 08:50 | PROG NOTE ---
[address] [address] PROGRESS NOTE PATIENT: CITLALI FERNANDEZ : 1935 MR#: [id number] ADMIT: 02/28/2017 JOB ID: [id number] DATE: 03/05/2017 REASON FOR FOLLOWUP: Progressive hydrocephalus secondary to PAGINATOR malignancy with associated aspiration pneumonia and bilateral pleural effusions. INTERVAL HISTORY: Overnight, the patient is slightly more awake in that she will open her eyes, but does not appear to track, follow or interact in any way. No additional history obviously can be obtained from the patient. PHYSICAL EXAMINATION: Reveals a woman whose eyes were initially closed but then opened. She has a straight ahead stare without anything other than blinking to threat. She has been afebrile through the night. In fact, afebrile through her five day admission. Current temp 36.6, pulse 76, respiratory rate 22, blood pressure consistently 86/45-50. She is saturating fairly well but on high-flow mask. Eyes without conjunctivitis or scleral icterus. The pupils are equal, at least. Oral cavity cannot be examined as the patient does not open her mouth. Neck is relatively stiff, but it is hard to know how much the patient is cooperating. The arms continue fixed at about 45 degrees and are resistant to flexion or extension. There is an ongoing tremor in the upper extremity. Remainder of the neurologic exam really cannot be performed in this unresponsive but eyes open patient. Lungs fairly clear at the top and then missing breath sounds in the lower half of the lung yin bilaterally. Some rales are also heard at the junction between the area where there is air movement and where there was no air movement in the lower lung yin. Cardiac tones regular rate and rhythm. The abdomen is soft, nontender, without apparent mass. PEG tube present in the left side. Whitmore catheter is present as well. No rash is noted. LABORATORIES: Include white count 11,000, that is yesterday's values. No labs today. Creatinine 0.63. Procalcitonin 0.2, x2 measurements. Urinalysis had 11-50 white cells and grew Enterococcus which was sensitive to vancomycin. The respiratory PCR positive for parainfluenza virus 3. Blood cultures are negative x6 bottles so far. MRSA screen negative. Pneumococcal and Legionella urine antigens negative. IMAGING: Additional CT imaging done yesterday, CT of the chest shows large bilateral pleural effusions with what appears to be bilateral pulmonary infiltrates. CT of the brain shows enlarging ventricles, with a shunt pressed up against the septum pellucidum, which is different than the position of the shunt when the last CT of the brain apparently was done in October 2016 at [facility]. The patient has ongoing hydrocephalus. IMPRESSION: This is a very difficult case of a woman with underlying brain malignancy, who has been operated upon, radiated and shunted. She [place] for the past several months, with progressive decline in her mental status since her October admission to [facility]. At this point, it would appear that there are at least two separate serious processes ongoing. One is her progressive decline in mental status which has now reached the point where she has been essentially unresponsive for a period of days. The CT of the brain suggests that there may be malposition of the shunt and worsening hydrocephalus which is prior the cause of her altered mental status. Our first efforts should be to address whether or not this is fixable, and if so, to see if she can have her central nervous system shunt repositioned so as to decrease the hydrocephalus and hopefully increase her mental status. The 2nd major problem here is her ongoing respiratory failure. The patient is slightly tachypneic and saturating marginally well on high-flow oxygen. Her chest x-ray shows extensive bilateral pleural effusions with probable infiltrate. This is likely on the basis of her aspiration pneumonia. Note that she was treated for pneumonia last month and apparently has again this month, and I suspect this is due to aspiration, though some degree of fluid overload or congestive heart failure would be hard to exclude as well given her BNP of 2000. RECOMMENDATIONS: 1. Though not within the ID [facility], would consider sending the CT of the brain images to [facility] to see whether they feel repositioning or changing of the PAGINATOR shunt would be helpful in terms of restoring mental status and cognition. 2. Will continue with vancomycin through tomorrow and stop, as it is being given primarily for the possible enterococcal urinary tract infection. 3. I would continue with the meropenem for a seven or eight day course for what is probably aspiration pneumonia. 4. If our plan is to be aggressive with this case, it would be reasonable to tap one or both of her pleural effusions. 5. A cardiac echo may also figure in this evaluation of her pleural effusions, as she has an elevated BNP and progressive bilateral pleural effusions.
[2017-03-05] MEDS ORDERED: Zoledronic Acid 4 mg/5 mL Inj 4 MG in 0.9% Sodium Chloride 100 ML IV ONE (09:25)
[2017-03-05] MEDS: Heparin 5,000 Unit/mL Inj SUBQ SCH ×2 (10:02→21:48)
--- NOTE | 2017-03-05 11:01 | NUR ---
NUTRITION FOLLOW UP: ASSESS: 82 YO F admitted for decreased LOC. Pt came from [facility]. She has a PEG tube for nutrition. Enteral nutrition was running at goal rate but was held due to fluid overload. Received verbal in morning rounds for TF to be re-started. RN is aware. PMHX: Waldenstrm's macroglobulinemia, ependymoma with radiation therapy, depression, PNA, hypoxic respiratory failure, GERD LABS: Reviewed. K 3.3, Bun 29, Special Education Instructor 1.04, Ca 11.2, Alb 2.5 MEDS: Reviewed. Senna. GI: 1 BM (03/03) SKIN: Rock 12, open wound on sacrum CURRENT WTS: 52.2kg, BMI 19.8kg/m2, admit wt 51kg HOME TF: Fibersource HN @ 50 ml/hr x 24 hrs w/ 30cc fluid flush q 1 hr to provide 1440 kcal and 65 g protein. NUTRITION SUPPORT: Jevity 1.5 via PEG at 20ml/hr- TF to re-start today. DIET: NPO ESTIMATED NEEDS: Calories: 5027-9330 kcal/day (25-30 kcal/kg BW) Protein: 50-75 g/day (1.0-1.5 g/kg BW) Fluids: 2488-0060 ml/day (30-35 ml/kg) NUTRITION DIAGNOSIS: 1.) Inadequate oral intake related to chronic disease as evidence by need for TF via PEG for adequate nutrition.---PERSISTS. NUTRITION INTERVENTION: 1.) Recommend restarting enteral nutrition via PEG tube. Recommend re-start TF of Jevity 1.5 @ 20 ml/hr, advance by 10 ml q 4 hrs until reach goal rate of 42 ml/hr to provide 1450 kcal and 62 g protein (100% estimated needs). Fluid flush 40 ml q 4 hr. 2.) RN is aware of TF re-start and orders. If pt continues to sound wet, RN will keep TF at 20ml/hr to avoid fluid overload. MONITOR / EVALUATE: NPO status, TF start/carson, wt, labs, POC, GI/nutrition status. Follow per high nutrition risk guidelines.
[2017-03-05] MEDS: 0.9% Sodium Chloride 1,000 ML IV SCH ×3 (11:41→22:19)
--- NOTE | 2017-03-05 13:15 | PCM.PNPALL ---
Date of Service March 05, 2017 Date of Hospital Admission: February 28, 2017 at 19:50 Date of Palliative Consult: March 04, 2017 Palliative Care Recommendation Summary of palliative recommendations: -Symptom management (Pain/other): per Attending -DPOA/Advanced Directives/POLST: 1. Her Initial Attending Dr. Dodge discussed family goals with on : Code status is DNR/DNI, family would like to receive other forms of treatment including antibiotics and fluids. Pt has a PEG tube in place currently. Attending Dr. Dodge discussed NRB, Ventimask, BiPAP and would want any of these measures, if needed. is designated decision- maker because pt is not capacitated due to her encephalopathy. -Family/emotional support: Walt Awan () [phone] -Spiritual support: Not addressed Family Goals: Palliative Care has again placed phone call to Mr. Awan on 2016. Per Mr. Awan, he is unable to get to hospital for meeting today given he lives on [address] and is unable to catch the [place] today. He also states he is aware of her current clinical condition and is willing to discuss comfort care in person with Palliative Care tomorrow on 01/04. He said he talked to Dr. Garcia on 03/04 and understands that "the gist is, she is failing". says that he expects to arrive between 0900 and 0930 on 03/06 and he will have his 's nurse contact Palliative Care when he arrives. Palliative Care's Dr. Reynolds also coordinated care with current Attending, Dr. Garcia, who says he is concerned that her BP continues to be low and she has recurrent aspiration. There may be reversible conditions that may be considered. He will speak with neurosurgery in [place] today regarding her WOOD MACHINIST APPRENTICE shunt, and whether it needs to be adjusted. He will also attempt to correct her hypercalcemia and will consider tomorrow if she is recovering or if she is candidate for comfort care. Problems: Goals of Care DNR/ DNI with further boundaries to be clarified with the when he arrives in hospital. possibly 03/06/17 Disposition Patient is a resident at [facility] and patient's spouse reports that she is total care. Patient has had HH in the past. Patient has a WC. Currently the plan is for the patient to return to [facility] when discharged per spouse. Resuscitation Status Resuscitation Status: DNR/DNI:Do Not Resuscitate/Intubate ( is alternate decision-maker) POLST Updates/Changes Previous POLST?: No Antibiotics: Use ABX if can Prolong Life Artificially Admin Nutrition: Long-Term Nutrition by Tube Feeding POLST Review Outcome: No Change . Pain: None Palliative Subjective Palliative Care Daily Responde: Patient (non verbal but attempts to follow commands .), Family/Proxy (See plan for husbands viewpoint on wifes condition. ) , Team (See plan for Dr. Garcia's view point. ) Brief History Deana is an 82 y/o F who presented to the [facility] ED from [facility] with AMS. She has significant past medical history of Waldenstrm's macroglobulinemia, ependymoma with radiation therapy, depression, previous pneumonia and hypoxic respiratory failure, GERD. Patient is DNR/DNI. She recently experienced a GLF in September that resulted in a cervical fracture s/p cervical fusion at [facility]. Patient was seen by Dr. Hamilton in 02/2017. Patient is unable to provide history due to condition. She had fallen and hit her head at home on October 07, 2016 and went [facility] with a cervical fracture, and ultimately required a cervical fusion. She has been at [facility] since October 30. She had a PEG placement in early January 2017 and was recently hospitalized at [facility] from February 03 to February 06 with pneumonia. 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 In September 2016 was admitted to [facility] with increasing confusion and ataxia. 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 A WOOD MACHINIST APPRENTICE shunt was placed at that time and she was recommended to undergo salvage radiation therapy to the site of recurrence. She completed her brain radiation early 2016. For the last several months, she has been very debilitated, but her reports that in the past month she has deteriorated significantly and now spends most of her time in bed and not communicating; she is able to sit at the side of the bed and bear weight on her feet with assistance and communicates with brief words or at most a phrase. Subjective Patient is non-verbal Palliative Performance Scale PPS Patient Status: Current PPS Ambulation: Totally Bed PPS Activity: Unable to do any activity PPS Self-Care: Total Care PPS Intake: Normal or reduced PPS Conscious Level: Full or drowsey, +/- confusion Performace Scale: 30% Objective Findings Exam Vital Sign - Last Date Time Temp Pulse Resp B/P Pulse Ox O2 Delivery O2 Flow Rate FiO2 03/05/17 12:00 85 20 95 OxyMask 7.00 03/05/17 09:34 36.8 90/49 Intake and Output 03/04/17 03/04/17 03/05/17 Cumulative From/Thru 15:00 23:00 07:00 02/28/17 17:39 - 03/05/17 06:26 Intake Total 168 ml 345 ml 7618 ml Output Total 500 ml 1100 ml 6875 ml Balance -332 ml -755 ml 743 ml Intake Oral 0 ml 0 ml IV Total 128 ml 345 ml 5594 ml Tube Feeding 672 ml Packed Cells 625 ml Tube Irrigant 40 ml 727 ml Output Urine Total 500 ml 1100 ml 6875 ml # Bowel Movements 0 3 General: Minimally responsive, No acute distress, Other (Asleep, unable to awaken.) HEENT: Scleral Anicteric, Mucous Membranes Dry, Other (scop patch under right mandiblule) Heart: Regular Rate/Rhythm, Bradycardia (rate of 60 on auscultation) Lungs: Diminished Abdomen: PEG/Feeding tube in place Neuro: Arousable, Spontaneous Eye Opening Extremities: Warm, No Edema Lab/Diagnostics Lab and Imaging results reviewed in detail in EMR. Time spent Total time [65] minutes; >50% face to face with patient and/or family, providing counselling regarding plans and recommendations, and in care coordination with his/her medical teams. Attending Statement Dr. Reynolds was physically present and available for resident physician as he examined patient and we discussed management plan together. She agrees with the documentation and plan outlined above. Roberto Moreno DO March 05, 2017 13:15 Ada Reynolds MD March 05, 2017 13:42
--- NOTE | 2017-03-05 14:13 | PCM.PNMED ---
Subjective Date of Service March 05, 2017 Subjective Deana Awan is a 81 year old woman with a history of Waldenstrom's macroglobulinemia, depression, previous hypoxic respiratory failure, pneumonia, GERD who presents to the ED via EMS from [facility] with decreased LOC. Currently under treatment for altered mental status. Hospital day #6 Overnight: No acute events overnight. Today: Patient's eyes were open this morning however she did not respond to any verbal stimulus or to touch. ROS is not obtainable. Exam Vital Signs Vital Sign - Last Date Time Temp Pulse Resp B/P Pulse Ox O2 Delivery O2 Flow Rate FiO2 03/05/17 12:00 85 20 95 OxyMask 7.00 03/05/17 09:34 36.8 90/49 Intake and Output 03/04/17 03/04/17 03/05/17 Cumulative From/Thru 15:00 23:00 07:00 02/28/17 17:39 - 03/05/17 06:26 Intake Total 168 ml 345 ml 7618 ml Output Total 500 ml 1100 ml 6875 ml Balance -332 ml -755 ml 743 ml Intake Oral 0 ml 0 ml IV Total 128 ml 345 ml 5594 ml Tube Feeding 672 ml Packed Cells 625 ml Tube Irrigant 40 ml 727 ml Output Urine Total 500 ml 1100 ml 6875 ml # Bowel Movements 0 3 Exam Gen.: unresponsive, frail, elderly woman, in a hospital bed HEENT: Mouth open, eyes open, pupils equal round and reactive to light and accommodating, trachea midline. Heart: Regular rate and rhythm, no S3-S4 sounds, no murmur Lungs: Bilateral diffuse crackles and rales, no change from yesterday, somewhat increased work of breathing. Abdomen: Flat, nondistended Extremities: Negative for edema, arms appear swollen Neuro: Not responsive to pain, not responsive to voice. Moves extremities without prompting. Skin: Warm to touch Vasculature: Palpable dorsalis pedis pulse IVs and Medications Medications Reviewed: Medications were reviewed in detail Lab and Diagnostics Result Diagram: 03/05/1780903/05/17809 Microbiology Urine culture: Enterococcus fecalis Respiratory PCR: Parainfluenza 3 X-Rays, CTs and MRIs X-RAY CHEST ONE VIEW, PORTABLE IMPRESSION: 1. Increased small bilateral pleural effusions with increased compressive atelectasis or consolidation. Left retrocardiac consolidation is also increased. Dictated by: Jae Pantoja M.D. on 02/28/2017 at 17:33 CT BRAIN WITHOUT CONTRAST IMPRESSION: Multiple air-fluid levels in sinuses suggesting the possibility of diffuse sinus infection. Previous occipital surgery with a plate present. Enlarging ventricular size bilaterally with slight change in shunt tube position now against the septum pellucidum compared to the previous study from [facility] 10/19/16 which showed the tip in the central aspect of the right frontal horn. Hydrocephalus is occurring. Dictated by: Justin Peterson M.D. on 03/04/2017 at 16:54 this information was related to the patient's clinician at the time of this dictation. Assessment & Plan Deana Awan is a 81 year old woman with a history of Waldenstrom's macroglobulinemia, depression, previous hypoxic respiratory failure, pneumonia, GERD who presents to the ED via EMS from [facility] with decreased LOC. Currently under treatment for altered mental status. Hospital day #6 Acute Encephalopathy, present on admission. Active - Differential includes aspiration pneumonia/bacterial pneumonia, urinary tract infection, progression of brain cancer, hypercalcemia - Continue treat possible underlying etiology. - CT of brain revealed Enlarging ventricular size bilaterally with slight change in shunt tube position now against the septum pellucidum. [facility] will be contacted to review the imaging and advise on further interventions. - We will hold methylphenidate until patient is more oriented - Treat hypercalcemia as below Hypercalcemia, present on admission, active -Normal saline at 150 mL per hour given patient's respiratory exam. If patient is able to tolerate this fluid without problem increase to 300 mL per hour. -Lasix 20 mg IV every 6 -Zometa 1 -Continue to monitor Acute on chronic respiratory failure due to viral pneumonia secondary to parainfluenza virus with the possibility of aspiration pneumonia, present on admission. Active - 1-2 L home O2 Nasal cannula. - If patient decompensates we will place BiPAP as needed - scopolamine patch for secretions. - Continue home albuterol nebulizers. - Meropenem for 7 days per infectious disease Fluid overload, not present on admission - Continue IV Lasix - Consider an echocardiogram Acute urinary tract infection with E. feacalis, present on admission. Active. - UA straw hazy, large leukocyte esterase, 11-50 white cells, no epithelial. - Whitmore in place - Culture showed enterococcus faecalis sensitive to vancomycin, will continue. - Infectious disease consulted, appreciate time and expertise. Elevated troponins, present on admission. Active. - Likely demand ischemia. - Medical management only. This was communicated to on 03/01. He expressed his understanding. 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 Stable. - Hemoglobin on admission 9.8 previous values range from 7.6-10.5 from 2002 - 2016. - Consider oncology consult, Dr. Hamilton saw the patient 02/17/2017. Chronic dysphagia -Restarted tube feeds Disposition: Patient's status is guarded. Anticipate patient will in the hospital for a prolonged stay as she recovers. VTE Prophylaxis: Sub-Q Heparin (Unfractionated) Resuscitation Status: DNR/DNI:Do Not Resuscitate/Intubate ( is alternate decision-maker) Attending Statement I examined the patient on rounds today. We will try to normalize calcium level to see if this improves her neurologic function. Hypotension persists but her clinical status may be improving slightly. I agree with the assessment and plan as stated above. Meghan Tellez DO March 05, 2017 13:56 Kwadwo Garcia MD March 05, 2017 17:12
[2017-03-05] MEDS: Furosemide 10 mg/mL 2 mL Inj IVPUSH SCH ×2 (14:38→21:47)
[2017-03-05] MEDS ORDERED: Potassium Chloride 20 mEq/15 mL 15mL Oral Soln PO SCH ×2 (17:30)
[2017-03-05] MEDS: Potassium Chloride 20 mEq/15 mL 15mL Oral Soln PO SCH ×2 (17:35→21:47)
--- NOTE | 2017-03-05 18:25 | DRSVH ---
PROCEDURE: X-RAY SHUNT SERIES W/O INJECTION INDICATIONS: DISPLAY COORDINATOR shunt with neuro decline COMPARISON: None. FINDINGS: Right frontal DISPLAY COORDINATOR shunt with tip projected over the anterior horn of the right lateral vent ricle. Shunt tubing is contiguous as it courses through the right neck and chest into the abdomen wit h tip in the right lower quadrant. Incidentally noted are postoperative changes of a suboccipital port crane operator niotomy with fusion to the upper cervical spine. There are bilateral pleural effusions with bibasal a telectasis. Bilateral perihilar interstitial pulmonary opacities consistent with increased pulmonary vascularity. Abdominal surgical drain. Degenerative changes throughout the osseous structures. IMPRESSION: 1. Intact DISPLAY COORDINATOR shunt with tip in the right lower quadrant. 2. Pleural effusions with bibasal atelectasis and increased pulmonary vascularity. Dictated by: Remberto Solorzano M.D. on 03/05/2017 at 18:14 Approved by: Remberto Solorzano M.D. on 03/05/2017 at 18:17
--- NOTE | 2017-03-05 18:35 | NUR ---
Tube feed/Mentation Jevity 1.5 started at 1100 at 20mls/hour. Tolerating well. At 1500, feed increased to 30mls/hour. Residual 5cc. Tolerating well. Next time to increase feed will be at 1930. Will alert the night RN. Pt's bed at 30 degrees. PEG tube dressing is C/D/I with no s/s infection. Tube is flushing well. H2O flush set for 40mls every 4 hours. Pt did not respond in any way this shift. Pt had her eyes open at times but did not look at me when I spoke to her. Contractures noted in arms, L side especially. Q2 turns.
[2017-03-05] MEDS: Vancomycin Inj 1,000 MG in IV Premix 1 EACH IV SCH (22:19)
[2017-03-06] VITALS (9 sets, daily range): BP systolic 92–105; BP diastolic 53–61; PULSE 69–79; RESP 18–24; O2SAT 96–99
[2017-03-06] MEDS: Meropenem 1 Gm/100 mL NS Minibag Plus IV SCH ×6 (00:37→16:09)
[2017-03-06] MEDS: Furosemide 10 mg/mL 2 mL Inj IVPUSH SCH ×3 (02:35→14:05)
[2017-03-06] MEDS: Potassium Chloride 20 mEq/15 mL 15mL Oral Soln PO SCH ×4 (02:35→19:41)
--- NOTE | 2017-03-06 03:10 | NUR ---
Tube feed/O2 Jevity advanced to 40 Ml/hr, tolerating med administration through PEG tube well, titrated O2 down to 5 L per oxy-mask bue RT. Not on Telemetry. NS@ 150.
[2017-03-06 03:42] LABS: BASOPHILS % (AUTO) 0.8 % (0-3); EOSINOPHILS % (AUTO) 5.1 % (0-5); MONOCYTES % (AUTO) 11.4 % (4-12); Mean Corpuscular Hemoglobin 30.7 pg (27.0-35.0); Mean Corpuscular Volume 97.7 fL (81-100); NEUTROPHILS % (AUTO) 61.7 % (40-74); Platelet Count 197 bil/L (150-400)
[2017-03-06 04:25] LABS: Phosphorus 2.3 mg/dL (2.5-4.9)
[2017-03-06] MEDS: 0.9% Sodium Chloride 1,000 ML IV SCH ×2 (04:48→13:19)
[2017-03-06] MEDS: Albuterol 2.5 mg/3 mL Inhalation Solution NEB SCH ×4 (07:29→20:32)
[2017-03-06] MEDS: Vancomycin Dose per Pharmacist XX SCH (08:30)
--- NOTE | 2017-03-06 09:00 | PROG NOTE ---
[address] [address] PROGRESS NOTE PATIENT: CITLALI FERNANDEZ : 1935 MR#: [id number] ADMIT: 02/28/2017 JOB ID: [id number] DATE: 03/06/2017 INFECTIOUS DISEASE FOLLOW UP NOTE: REASON FOR FOLLOWUP: Possible aspiration pneumonia in the setting of parainfluenza virus 3, respiratory tract infection as well as urine positive for Enterococcus in a patient with underlying hydrocephalus and declining performance status. INTERVAL HISTORY: The patient is again awake and her eyes are open but she looks straight ahead. Does not seem to track or interact in any meaningful way. No additional history is available from the patient at this point, and there is no one else in the room to ask in terms of family members at this point. PHYSICAL EXAMINATION: Reveals an afebrile woman. Note that she has been afebrile throughout her now 6-1/2 day admission. Temperature is 37 degrees, pulse 69, respiratory rate 20, blood pressure 92/53. She is saturating well but using a face mask at 5 L. As noted, she looks straight ahead. Does not respond to any questions or touching. Does not deviate her gaze or interact. Eyes without conjunctivitis or scleral icterus. Oral examination cannot be done as her mouth is not open. Lungs are relatively clear except for a few rales and rhonchi at the bases but no different and certainly no worse than yesterday. Cardiac tones: Regular rate and rhythm. The abdomen is notable for a feeding tube but otherwise benign. The patient has a Whitmore catheter. No new skin rash is noted. LABORATORIES: Include white count 7800. Recall that when she first came in it was as high as 11,000 during her hospital stay but never really significantly elevated. The differential is normal except for 5% eosinophils which are likely due to medications. Creatinine is 0.89 and is stable. LFTs are normal. Procalcitonin is 0.19. Urinalysis had 11-50 white cells and the urine culture grew Enterococcus sensitive to vancomycin and she is just completing now five days of therapy aimed at that Enterococcus. Blood cultures have been negative. Urine antigens for pneumococcus and Legionella have been negative. Respiratory viral PCR positive for parainfluenza virus #3. Chest CT scan done on the showed bilateral lower lobe infiltrates with pleural effusions. Brain CT showed hydrocephalus and a shunt. A subsequent shunt study was done which showed that there was an intact MED SPECIALIST shunt which proceeded from the ventricle down to the right lower quadrant and it was intact. IMPRESSION: This is a complex case of a woman with declining performance status and health who has had recent brain tumor as well as a irradiation of the brain and has underlying Waldenstrom's. The main issues here involve the nature of her decline over the past few months and whether it is related to increasing hydrocephalus, hypercalcemia, cardiac or perhaps respiratory failure. From an infectious disease point of view, we have been pursuing a short course of therapy for what may be an enterococcal UTI and that therapy will end today. In addition, we have been treating with meropenem for what could be an aspiration type pneumonia, though many features are atypical such as the lack of fever, white count or elevated procalcitonin. Whether or not aggressive care of this patient is desired or reasonable is being decided right now by the patient's family as well as in concert with the palliative team. RECOMMENDATIONS: 1. If more aggressive care is indicated. one could consider tapping one or both of the pleural effusions to see if it is an exudate or transudate and see if there is any therapeutic benefit to removing those pleural effusions. 2. The [facility] team is said to be reviewing the results of the shunt study and will offer advice on whether anything should be done differently with respect to the hydrocephalus. 3. Will go ahead and stop the vancomycin today having given an adequate course of therapy for what could be enterococcal urinary tract infection or perhaps just represents colonization. 4. Will continue with the meropenem to complete an eight day course which would take us through March 08 for maximal treatment of an aspiration pneumonia. This course could be truncated if the decision is made to switch to palliative care, of course. 5. One could consider cardiac echo to assess her cardiac function in view of bilateral pleural effusions.
[2017-03-06] MEDS: Heparin 5,000 Unit/mL Inj SUBQ SCH ×2 (09:18→19:42)
--- NOTE | 2017-03-06 10:32 | NUR ---
Social Work Note: Continued Discharge Planning Data& Assessment: Pt was discussed in morning rounds. Pt is not engaging or as responsive as she was in the beginning of her hospitalization. Pt is meeting with Palliative care this morning at 10:30 to clarify goals of care. MD is also following for potential transfer to [place] for further treatment. SW to continue to follow for clarified goals of care and MD order to discuss discharge planning with pt . SW to continue to follow. Plan: Anticipated discharge home with private in home caregiving vs. Private pay at SNF vs. Hospice at home as pt does not appear to be skillable at this time. SW to follow for clarified goals of care, pt needs and MD orders. SW to continue to follow. MEHDI Salazar Addendum: 03/06/17 at 1415 by JOSÉ MANUEL BASS SW received MD order to help coordinate pt discharge planning to SNF with Hospice. Per Palliative care MD, pt is thinking about private paying for pt to return to [facility] with Hospice. SW spoke with pt Walt via phone call to discuss hospice and discharge planning. Pt confirmed that he would like pt to return to [facility] once stable and has already spoken to the SW at [facility] regarding private pay costs. Pt unsure if he is able to come back to [place] from [place] this week due to issues with the [place]. SW spoke with Hospice regarding possibility of an over the phone informational visit being completed with . SW awaiting call back from Hospice. CRISTINA spoke with Trinity from [facility] who confirmed pt still has a bed at their facility and will be able to accept pt when she is medically stable. Hospitalist notified. Per ID MD documentation, pt will have IV abx finished on 03/08. Hospitalist to discuss with ID MD if pt will need to continue this IV medication if pt is transitioning to Hospice. SW to continue to follow and await call back from Hospice for final plan. SW to await for final discharge orders. Plan: Anticipated discharge to [facility] when medically ready via BLS with Hospice to open. SW to continue to follow and await call back from Hospice for final plan. SW to await for final discharge orders. MEHDI Salazar
--- NOTE | 2017-03-06 13:14 | NUR ---
Palliative care note [facility] D/A: Met with pt spouse and his sister, in pt room with Dr.s Moreno and Osman. Discussion centered around goals of care. Spouse describes timeline of various accidents and diagnosis with related interventions and hospitalizations here and at [facility]. It is noted that pt fell around Sep and a shunt was placed. It was after this hospitalization that pt was placed at [facility]. Spouse notes that pt had follow up at post shunt placement and the providers felt that the shunt was functioning at that time. Discussed feedback from neurosurgery ( vs [facility]?) that given pt current situation, a transfer south to consider shunt revision might be called for at this time. Spouse Walt and his sister indicate that pt's QoL has been poor, most likely since she has been living in a facility. He notes that both of their mothers had extended illness. This led to the couple having many discussions about their desires in relation to extended illnesses and quality of life. Pt is felt to be depressed at time with her current situation as well as frustrated. She has been angry due to lack of control. She had recently told her spouse "I want to go home and ." This is a difficult decision for spouse. He is aware of pt wishes but also wishes that he could know that if pt has the shunt and might be able to regain some of her function. Discuss further pt current functioning. Spouse recalls that there was some discussions in the past with pt medical providers, that her brain tumor might be growing. He indicates pt began to have trouble with her swallowing capabilities, her hearing and her ability to speak. He recalls being told that it was possible that her tumor was pressing on the location in the brain where these functions are regulated. Spouse is aware that with pt swallowing difficulties, that there is a strong chance that if she recovers from current pneumonia, she may aspirate again. Pt current decreased QoL may be impacted by a malfunctioning shunt but also be progression of her brain tumor. Spouse understands. He decides to not pursue transfer to [place] for shunt revision. POLST is done with pt spouse Walt. Pt is made DNAR with comfort measures only. Signed by Dr. Brewer as well as spouse Walt and dated 03/06/17 Hospice is discussed. Discuss home with hospice vs to facility with hospice. Discuss ability to have an informational visit from hospice that might be able to answer his need for further information in order to make decision regarding SNF vs home with hospice. Dr. Brewer indicates that prognosis could be weeks. Spouse weeps with sadness over this decision. He is aware of pt wishes and is able to say that no further intervention is what pt would want. His sister indicates that pt would make that same decision for pt out of love. Palliative care team provides support for spouse and his sister. Dr. Brewer discusses above with donnell Lee. P: Palliative care to follow. Meredith MENJIVAR, CCM
--- NOTE | 2017-03-06 13:16 | NUR ---
NUTRITION FOLLOW UP: ASSESS: 82 YO F admitted for decreased LOC. Pt came from [facility]. She has a PEG tube for nutrition. Enteral nutrition was running at goal rate but was held due to fluid overload on 03/04. TF was re-started 03/05 and is currently running at goal rate. Palliative care is involved for goals of care. Last recorded BM was 3 days ago. PMHX: Waldenstrm's macroglobulinemia, ependymoma with radiation therapy, depression, PNA, hypoxic respiratory failure, GERD LABS: Reviewed. Na 148, Cl 110, Bun 28, Glu 168, Ca 10.7, phos 2.3, Alb 2.8 MEDS: Reviewed. Senna laslian GI: 1 BM (03/03) SKIN: Rock 12, open wound on sacrum CURRENT WTS: 52.2kg, BMI 19.8kg/m2, admit wt 51kg HOME TF: Fibersource HN @ 50 ml/hr x 24 hrs w/ 30cc fluid flush q 1 hr to provide 1440 kcal and 65 g protein. NUTRITION SUPPORT: Jevity 1.5 via PEG at 42ml/hr DIET: NPO ESTIMATED NEEDS: Calories: 6545-3344 kcal/day (25-30 kcal/kg BW) Protein: 50-75 g/day (1.0-1.5 g/kg BW) Fluids: 9402-1458 ml/day (30-35 ml/kg) NUTRITION DIAGNOSIS: 1.) Inadequate oral intake related to chronic disease as evidence by need for TF via PEG for adequate nutrition.---PERSISTS. NUTRITION INTERVENTION: 1.) Continue TF at goal rate of 42 ml/hr to provide 1450 kcal and 62 g protein (100% estimated needs). Fluid flush 40 ml q 4 hr. MONITOR / EVALUATE: NPO status, TF carson, wt, BM, labs, POC, GI/nutrition status. Follow per high nutrition risk guidelines.
--- NOTE | 2017-03-06 15:26 | PCM.PNMED ---
Subjective Date of Service March 06, 2017 Subjective Deana Awan is a 81 year old woman with a history of Waldenstrom's macroglobulinemia, depression, previous hypoxic respiratory failure, pneumonia, GERD who presents to the ED via EMS from [facility] with decreased LOC. Currently under treatment for altered mental status. Hospital day #7 Overnight: No acute events overnight. Today: Patient was unresponsive, with eyes closed. No responding to verbal stimulus or to touch. ROS is not obtainable. Exam Vital Signs Vital Sign - Last Date Time Temp Pulse Resp B/P Pulse Ox O2 Delivery O2 Flow Rate FiO2 03/06/17 12:47 72 20 98 OxyMask 5.00 03/06/17 12:16 36.8 92/56 Intake and Output 03/05/17 03/05/17 03/06/17 Cumulative From/Thru 15:00 23:00 07:00 02/28/17 17:39 - 03/06/17 06:09 Intake Total 1068 ml 2126 ml 96362 ml Output Total 1000 ml 2200 ml 87277 ml Balance 68 ml -74 ml 737 ml Intake Oral 0 ml 0 ml IV Total 1068 ml 2126 ml 8788 ml Tube Feeding 672 ml Packed Cells 625 ml Tube Irrigant 727 ml Output Urine Total 1000 ml 2200 ml 72870 ml # Bowel Movements 3 Exam Gen.: unresponsive, frail, elderly woman, in a hospital bed HEENT: Mouth open, eyes closed, trachea midline. Heart: Regular rate and rhythm, no S3-S4 sounds, no murmur Lungs: Bilateral diffuse crackles and rales, no change from yesterday, somewhat increased work of breathing. Abdomen: Flat, nondistended Extremities: Negative for edema, arms appear swollen Neuro: Not responsive to pain, not responsive to voice. Moves extremities without prompting. Skin: Warm to touch Vasculature: Palpable dorsalis pedis pulse IVs and Medications Medications Reviewed: Medications were reviewed in detail Lab and Diagnostics Result Diagram: 03/06/1732903/06/17329 Microbiology Urine culture: Enterococcus fecalis Respiratory PCR: Parainfluenza 3 X-Rays, CTs and MRIs X-RAY CHEST ONE VIEW, PORTABLE IMPRESSION: 1. Increased small bilateral pleural effusions with increased compressive atelectasis or consolidation. Left retrocardiac consolidation is also increased. Dictated by: Jae Pantoja M.D. on 02/28/2017 at 17:33 CT BRAIN WITHOUT CONTRAST IMPRESSION: Multiple air-fluid levels in sinuses suggesting the possibility of diffuse sinus infection. Previous occipital surgery with a plate present. Enlarging ventricular size bilaterally with slight change in shunt tube position now against the septum pellucidum compared to the previous study from [facility] 10/19/16 which showed the tip in the central aspect of the right frontal horn. Hydrocephalus is occurring. Dictated by: Justin Peterson M.D. on 03/04/2017 at 16:54 this information was related to the patient's clinician at the time of this dictation. Assessment & Plan Deana Awan is a 81 year old woman with a history of Waldenstrom's macroglobulinemia, depression, previous hypoxic respiratory failure, pneumonia, GERD who presents to the ED via EMS from [facility] with decreased LOC. Currently under treatment for altered mental status. Hospital day #7 Acute Encephalopathy, present on admission. Active - Differential includes aspiration pneumonia/bacterial pneumonia, urinary tract infection, progression of brain cancer, hypercalcemia - CT of brain revealed Enlarging ventricular size bilaterally with slight change in shunt tube position now against the septum pellucidum. [facility] contacted and advised the patient be transferred for shunt failure. The patient' s does want to proceed with any further surgeries. - Patient is to be discharged with hospice tomorrow. Her has elected not to proceed with further invasive care. Hypercalcemia, present on admission, active -Stop hydration as patient is to be transitioned to hospice. -Zometa 1 Acute on chronic respiratory failure due to viral pneumonia secondary to parainfluenza virus with the possibility of aspiration pneumonia, present on admission. Active - 1-2 L home O2 Nasal cannula. - scopolamine patch for secretions. - Continue home albuterol nebulizers. - Meropenem for 7 days per infectious disease Fluid overload, not present on admission - Continue IV Lasix as needed for comfort Acute urinary tract infection with E. feacalis, present on admission. Active. - UA straw hazy, large leukocyte esterase, 11-50 white cells, no epithelial. - Whitmore in place - Culture showed enterococcus faecalis sensitive to vancomycin, will continue. - Infectious disease consulted, appreciate time and expertise. Elevated troponins, present on admission. Active. - Likely demand ischemia. - Medical management only. This was communicated to on 03/01. He expressed his understanding. 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 Stable. - Hemoglobin on admission 9.8 previous values range from 7.6-10.5 from 2002 - 2016. - Consider oncology consult, Dr. Hamilton saw the patient 02/17/2017. Chronic dysphagia -Restarted tube feeds Disposition: Patient will be discharged to her SNF with hospice tomorrow. VTE Prophylaxis: Sub-Q Heparin (Unfractionated) Resuscitation Status: DNR/DNI:Do Not Resuscitate/Intubate ( is alternate decision-maker) Time spent 75 minutes Attending Statement I examined the patient on rounds today, and spent considerable time in care coordination including review of data with consultants. I agree with the assessment and plan as stated above. Meghan Tellez DO March 06, 2017 15:20 Kwadwo Garcia MD March 06, 2017 15:58
--- NOTE | 2017-03-06 16:09 | PCM.PNPALL ---
Date of Service March 06, 2017 Date of Hospital Admission: February 28, 2017 at 19:50 Date of Palliative Consult: March 04, 2017 Palliative Care Recommendation Summary of palliative recommendations: -Symptom management (Pain/other): per Attending -DPOA/Advanced Directives/POLST: 1. Her Initial Attending Dr. Dodge discussed family goals with on : Code status is DNR/DNI, family would like to receive other forms of treatment including antibiotics and fluids. Pt has a PEG tube in place currently receiving tube feedings. Attending Dr. Dodge discussed NRB, Ventimask, BiPAP and would want any of these measures, if needed. is designated decision-maker because pt is not capacitated due to her encephalopathy. Attending Dr. Garcia spoke with [facility] Neurosurgery Department regarding patients Ventricular/peritoneal shunt malpositioning, and [place] recommends transfer for manipulation of shunt. -Family/emotional support: Walt Awan () [phone] -Spiritual support: Not addressed Family Goals: Palliative Care's Dr. Brewer coordinated care with current Attending, Dr. Garcia regarding the recommendations for further tx of patients hypercalcemia as possible source of patients decreased mental status, as well as regarding the recommendations of [facility] recommendations regarding the positioning of patients [employer] shunt. Palliative team including Dr. Nica Brewer MD, Dr. Tiffanie May and Meredith Henson met with Walt Awan and the patients sister this morning 2016 to discuss families desires for further interventions given patients noticeable decline over weeks to months. We discussed the recommendations received from [facility] regarding patients [employer] shunt, and if this intervention would benefit patient by improved quality of life moving forward. Family stated that patient has shown considerable and continuous mental decline since she had fallen on October 07 2016 resulting in cervical spine fracture. She has not shown increased quality of life post brain surgery or radiation therapy for progression of her brain tumor. Prior follow up visits regarding the status of patients peritoneal shunt have reportedly been that the shunt was functioning properly as late as this December. Mr. Awan further stated that patient has been suffering from dysphagia as well as, anger, depression, and frustration over his decreased ability to participate in her baseline ADL' s. This even at one point prompted patient to dial 911 just to get someone to bring her a sweater. In light of all of these issues, Mr. Awan felt it would not be his Deana's wishes to proceed with further interventions. He prefers and opted for comfort measures in their place. A new POLST form was signed today regarding theses wishes. Mr. Awan has expressed that he prefers that patient be discharged to SNF facility on discharge from hospital as self pay. He has also expressed desire for Hospice care involvement and an ordered has been placed for SW to proceed with assisting in management of these wishes. Patient to discharge to SNF. Problems: Goals of Care DNR/DNI with comfort care measures only as of family meeting on 03/06/17 with Walt Flynn and patients sister. Disposition Patient is a resident at [facility] and patient's spouse reports that she is total care. Patient has had HH in the past. Patient has a WC. Currently the plan is for the patient to discharge to a SNF (either [facility] or other SNF). Family desires hospice care as well. Resuscitation Status Resuscitation Status: DNR/DNI:Do Not Resuscitate/Intubate ( is alternate decision-maker) POLST Updates/Changes Previous POLST?: No POLST Last Review Date: March 06, 2017 Antibiotics: No Antibiotics, Additional Orders (Comfort care only) Artificially Admin Nutrition: Long-Term Nutrition by Tube Feeding POLST Discussed with: Spouse/Other (and patients sister) POLST Review Outcome: New Form Completed (copies to family and placed in patient chart) . Advanced Care Planning Address: POLST, Comfort care Palliative Subjective Palliative Care Daily Responde: Patient (non verbal but attempts to follow commands .), Family/Proxy (See plan for husbands viewpoint on wifes condition. ) , Team (See plan for Dr. Garcia's view point. ) Brief History Deana is an 82 y/o F who presented to the [facility] ED from [facility] with AMS. She has significant past medical history of Waldenstrm's macroglobulinemia, ependymoma with radiation therapy, depression, previous pneumonia and hypoxic respiratory failure, GERD. Patient is DNR/DNI. She recently experienced a GLF in September that resulted in a cervical fracture s/p cervical fusion at [facility]. Patient was seen by Dr. Hamilton in 02/2017. Patient is unable to provide history due to condition. She had fallen and hit her head at home on October 07, 2016 and went [facility] with a cervical fracture, and ultimately required a cervical fusion. She has been at [facility] since October 30. She had a PEG placement in early January 2017 and was recently hospitalized at [facility] from February 03 to February 06 with pneumonia. 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 In September 2016 was admitted to [facility] with increasing confusion and ataxia. 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 A [employer] shunt was placed at that time and she was recommended to undergo salvage radiation therapy to the site of recurrence. She completed her brain radiation early 2016. For the last several months, she has been very debilitated, but her reports that in the past month she has deteriorated significantly and now spends most of her time in bed and not communicating; she is able to sit at the side of the bed and bear weight on her feet with assistance and communicates with brief words or at most a phrase. Subjective Patient has no change in level of consciousness and while eyes open and close, she does not respond verbally to verbal commands. She does not appear to be in any distress. She remains bed ridden and her J-peg is in place and she is receiving tube nutrition. We met with patients and sister for family meeting this morning to discuss the families wishes regarding goals of care. Family was made aware of the recommendations by [place] regarding possible transfer to their hospital for manipulation of [employer] shunt. Per Walt Awan ( ) he did not feel patient would desire further intervention that may hold little hope for improved quality of life given his 's clear mental decline over the past several months. Palliative Performance Scale PPS Patient Status: Current PPS Ambulation: Totally Bed PPS Activity: Unable to do any activity PPS Self-Care: Total Care PPS Intake: Normal or reduced (Tube feedings only ) PPS Conscious Level: Full or drowsey, +/- confusion Performace Scale: 30% ADLs ADL Patient Status: Current ADL Ambulation: Totally Bed ADL Dressing: Total care ADL Feeding: Total care ADL Hygene/bathing: Total care ADL Transfers: Total care Non-Responsive Patient Symptom Pain (current): NOT Present Objective Findings Exam Vital Sign - Last Date Time Temp Pulse Resp B/P Pulse Ox O2 Delivery O2 Flow Rate FiO2 03/06/17 12:47 72 20 98 OxyMask 5.00 03/06/17 12:16 36.8 92/56 Intake and Output 03/05/17 03/05/17 03/06/17 Cumulative From/Thru 15:00 23:00 07:00 02/28/17 17:39 - 03/06/17 06:09 Intake Total 1068 ml 2126 ml 24220 ml Output Total 1000 ml 2200 ml 14666 ml Balance 68 ml -74 ml 737 ml Intake Oral 0 ml 0 ml IV Total 1068 ml 2126 ml 8788 ml Tube Feeding 672 ml Packed Cells 625 ml Tube Irrigant 727 ml Output Urine Total 1000 ml 2200 ml 38441 ml # Bowel Movements 3 General: Minimally responsive, No acute distress, Other (Asleep, unable to awaken.) HEENT: Scleral Anicteric, Mucous Membranes Dry, Other (scop patch under right mandiblule) Heart: Regular Rate/Rhythm, Bradycardia (rate of 60 on auscultation) Lungs: Diminished Abdomen: PEG/Feeding tube in place Neuro: Arousable, Spontaneous Eye Opening Extremities: Warm, No Edema Lab/Diagnostics Lab and Imaging results reviewed in detail in EMR. Time spent Total time 60 minutes; >50% face to face with patient and/or family, providing counselling regarding plans and recommendations, and in care coordination with his/her medical teams. This time included review of chart and discussion with Dr. Garcia-hospitalist who had been in contact with neurosurg at [facility]. Also included conference with patient's and his sister who was with him for support. I also spent an additional [ ] minutes counseling for advanced care planning with the patient/the patients family/the surrogate decision maker. Attending Statement Patient was seen and examined with Dr. Moreno. We proceeded together into the family conference reviewing patient's medical issues, poor quality of life ( as defined by her ), Dr. Madan Garcia's info from [facility] and review of patient goals of care. Documentation by Dr. Moreno is accurate with the correction that the sister was of patient's . Communication also completed with CM regarding decision for comfort care and goal to be back at [facility]. copies to: Aditya Nguyễn MD, Benjamin DO March 06, 2017 16:09 Katerina Brewer MD Mar 18, 2017 14:48
--- NOTE | 2017-03-06 19:31 | NUR ---
Status Pt currently tolerating jevity 1.5 at 42mls/hour with a 40ml water flush every 4 hours. Residuals have been less than 5cc. NS discontinued per MD order. Peg tube is patent, dressing CDI. Q2 turns. 5L oxy mask. Pt does not respond or make eye contact but does open her eyes from time to time. Haim patent. No BM this shift.
[2017-03-07] MEDS: Meropenem 1 Gm/100 mL NS Minibag Plus IV SCH ×4 (00:46→08:13)
--- NOTE | 2017-03-07 01:14 | NUR ---
COMFORT Pt showed no signs of discomfort, still unresponsive, Jevity 1.5 running @ 42ml/hr with 40ml flush Q4. Whitmore patent, Q2 turns, no tele, Oxy-mask 5L, to discharge in AM to SNF on hospice.
[2017-03-07] MEDS: Potassium Chloride 20 mEq/15 mL 15mL Oral Soln PO SCH ×2 (02:42→08:15)
[2017-03-07 05:28] VITALS: BP 101/62; PULSE 82; RESP 22; O2SAT 97
[2017-03-07] MEDS: Albuterol 2.5 mg/3 mL Inhalation Solution NEB SCH ×2 (07:35→12:06)
[2017-03-07 07:36] VITALS: RESP 20; O2SAT 96
[2017-03-07 08:09] VITALS: BP 104/61; PULSE 91; RESP 18; O2SAT 92
[2017-03-07] MEDS: Heparin 5,000 Unit/mL Inj SUBQ SCH (08:15)
--- NOTE | 2017-03-07 08:18 | PROG NOTE ---
[address] [address] PROGRESS NOTE PATIENT: CITLALI FERNANDEZ : 1935 MR#: [id number] ADMIT: 02/28/2017 JOB ID: [id number] DATE: 03/07/2017 REASON FOR FOLLOWUP: Parainfluenza virus #3 pneumonia with enterococcal urinary tract infection and possible bacterial aspiration pneumonia. INTERVAL HISTORY: Over the past couple days there has been a great deal of discussion about this patient's management. Eventually, the neurosurgical team at [facility] who agreed that there was shunt dysfunction and offered to take the patient in transfer to repair or replace her current DEATH SURVEYS CODER shunt as she has progressive hydrocephalus and the shunt tip appears malpositioned. After extensive discussions with palliative Care, the primary team and others, the patient's however has decided to go another way and instead and to pursue the hospice option. This is based partly on the fact that the patient did not improve that much when the shunt was originally placed and functioning, and he thinks that his has suffered enough. This morning the patient remains unchanged essentially from a neurologic point of view. Her eyes are open and she looks straight ahead, but does not respond, follow commands, or interact in any meaningful way. She is currently shaking feet very rapidly and it is unclear if this is voluntary or involuntary, but there is no other signs of movement. No additional history can be obtained from her of course, though I did discuss the case extensively this morning with Dr. Brian Garcia of the primary team as well as the nurses at the bedside. PHYSICAL EXAMINATION: Reveals a woman who is sitting up about 45 degree angle in bed and who is vigorously moving her feet and ankles back and forth, but not her legs. Whether this represents voluntary or involuntary movement is unclear, though I do not have any sense it represents seizure activity. As noted, her eyes are looking straight ahead and did not deviate in her case which is the same as yesterday. She is afebrile. Temp 37 degrees, pulse 82, respiratory rate 20, blood pressure 101/62. She is saturating well on an Oxy Mask at 5 L. Examination of the eyes reveals they are looking straight ahead. No conjunctivitis, scleral icterus. Oral cavity cannot be examined. Lungs with scattered rales and rhonchi at the bases. Cardiac tones without change, regular rate and rhythm. Abdomen soft and without apparent tenderness or mass. Lower extremities as mentioned her feet and ankles are moving back and forth in a rhythmic pattern. While the legs remain essentially stationary. There is good blood flow to both feet without evidence of skin breakdown. LABORATORIES: Include a white count yesterday 7800, it has not been repeated today. A procalcitonin today was 0.29 which is in keeping with all prior values which have been 0.2, 0.2, and now 0.29. Creatinine yesterday was 0.89 not repeated today. IMPRESSION: This is an unfortunate woman with central nervous system malignancy who had a shunt placed for hydrocephalus and has had worsening neurologic status over several weeks. At this point, it is unclear how much of this change in mental status is due to the inadequacy of the shunt versus just basic progression of her very advanced disease. The is moving towards a hospice decision that will probably be finalized later today. In terms of infections we have evidence of parainfluenza virus 3 infection for which there is no currently available chemotherapy. We also had evidence of an enterococcal urinary tract infection, which we have adequately treated with vancomycin. She is currently on a course of meropenem for health care associated possible bacterial aspiration pneumonia. RECOMMENDATIONS: 1. This will be the 7th day of meropenem, and I think one could reasonably stop her meropenem either today or tomorrow with the assumption that a full course has been delivered. 2. I see no additional need for antibiotics at this time. 3. ID will go ahead and sign off on this case with recommendation to stop meropenem either today or tomorrow, depending on what else is going on in terms of this patient's care. Thank you very much for this consult.
--- NOTE | 2017-03-07 10:26 | NUR ---
Social Work: Discharge D: Pt discussed in am rounds. Pt is comfort care and is stable for discharge back to [facility]. Pt does not require hospice to open for transfer as spouse is paying privately. KINESIOLOGY PROFESSOR confirmed with [facility] that they have a bed available and have spoken with the spouse about private pay rates. CONTROL OPERATOR FLOW COAT spoke with Olena at [facility] who states that they will follow up with the patient's spouse via telephone. t/c to patient's spouse. He agrees with the plan to discharge the patient to [facility] private pay. He will follow up with the patient and staff at [facility]. CONTROL OPERATOR FLOW COAT informed him that [facility] will be calling him to do an hospice info visit. Pt will need to transport via BLS as pt is unresponsive and max assist. CONTROL OPERATOR FLOW COAT informed spouse of possible private pay expense if not covered by Medicare. He states that he agrees with plan for BLS transport. [facility] to arrange for BLS to [facility] once orders are finalized. A: Pt who is comfort care. P: Pt to discharge to [facility] private pay for comfort care via BLS MEHDI Alicea Addendum: 03/07/17 at 1139 by CAMRYN SAM Orders faxed.
[2017-03-07] MEDS ORDERED: MORP20SY PO (11:14)
[2017-03-07] MEDS ORDERED: OXYC-474 PEG (11:14)
--- NOTE | 2017-03-07 11:18 | PCM.DIMED ---
Meghan Tellez DO 03/07/17 1118: Discharge Instructions Date of Service March 07, 2017 Dates of Hospitalization February 28, 2017 at 19:50 Discharge Diagnosis Discharge Diagnosis Acute Encephalopathy, present on admission. Active Hypercalcemia, present on admission, active Acute on chronic respiratory failure due to viral pneumonia secondary to parainfluenza virus with the possibility of aspiration pneumonia, present on admission. Active Fluid overload, not present on admission Acute urinary tract infection with E. feacalis, present on admission. Active. Elevated troponins, present on admission. Active. 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 Stable. Chronic dysphagia Diet Discharge Diet: No restrictions Activity Discharge Activity: No restrictions Patient Instructions Patient Instructions [facility]. No further antibiotics will be given. Morphine solution will be provided for pain or air hunger. Further pain management per Hospice. For now continue tube feedings until hospice opens. Kwadwo Garcia MD 03/09/17 0716: Discharge Instructions Attending's Statement I interviewed and examined the patient on rounds today. I agree with the assessment and plan as stated above. Meghan Tellez DO March 07, 2017 11:18 Kwadwo Garcia MD March 09, 2017 07:16
--- NOTE | 2017-03-07 11:53 | NUR ---
Called and arranged [facility] for 1330 picker operator, patient is returning to [facility] called and updated Trinity Flynn sales and events coordinator. Updated WEEKEND RECEPTIONIST
[2017-03-07 12:00] VITALS: PULSE 85; RESP 20; O2SAT 96
--- NOTE | 2017-03-07 14:28 | NUR ---
Uneventful day/Discharge Pt continues to be non-verbal and minimally responsive. Adequate UOP via Whitmore. TF infusing via PEG. VSS. SpO2 92-96% on 5L oxymask. Pt has no non-verbal indicators of pain. Turned Q2H. D/C via BLS at 1345, d/c packet given to BLS transporters. IV d/c'd in tact. Flushed PEG tube and clamped it.
--- NOTE | 2017-03-08 13:51 | NUR ---
Palliative care note D/A: Pt discharged to [facility] on 03/07/17. POLST faxed to [facility] today, which reflects DNAR/comfort care measures. POLST completed on 03/06/[address] Brewer and pt spouse Walt Awan. Only front page of POLST is copied as back page was not completed. P: No further need for Palliative Care to follow. Meredith MENJIVAR, CCM
--- NOTE | 2017-03-08 18:28 | PCM.DC.MED ---
Discharge Summary Date of Service March 08, 2017 Dates of Hospitalization Date of Hospital Admission February 28, 2017 at 19:50 Date of Discharge: March 07, 2017 Providers: Admitting Physician: Clay Melton MD Primary Care Physician: Aditya Nguyễn MD Attending Physician: Clay Melton MD Diagnosis at Time of Discharge Diagnosis at Time of Discharge Acute Encephalopathy, present on admission. Active Hypercalcemia, present on admission, active Acute on chronic respiratory failure due to viral pneumonia secondary to parainfluenza virus with the possibility of aspiration pneumonia, present on admission. Active Fluid overload, not present on admission Acute urinary tract infection with E. feacalis, present on admission. Active. Elevated troponins, present on admission. Active. 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 Stable. Chronic dysphagia Consultations Palliative care Infectious disease Procedures XRay, CTs & MRIs X-RAY CHEST ONE VIEW, PORTABLE IMPRESSION: 1. Increased small bilateral pleural effusions with increased compressive atelectasis or consolidation. Left retrocardiac consolidation is also increased. Dictated by: Jae Pantoja M.D. on 02/28/2017 at 17:33 CT BRAIN WITHOUT CONTRAST IMPRESSION: Multiple air-fluid levels in sinuses suggesting the possibility of diffuse sinus infection. Previous occipital surgery with a plate present. Enlarging ventricular size bilaterally with slight change in shunt tube position now against the septum pellucidum compared to the previous study from [facility] 10/19/16 which showed the tip in the central aspect of the right frontal horn. Hydrocephalus is occurring. Dictated by: Justin Peterson M.D. on 03/04/2017 at 16:54 this information was related to the patient's clinician at the time of this dictation. Brief History From Dr. Adkins's H&P: "Deana Awan is an 82-year-old lady who presented to the [facility] Emergency Department by way of EMS from [facility] with decreased level of consciousness. She has significant past medical history of Waldenstrm's macroglobulinemia, ependymoma with radiation therapy, depression, previous pneumonia and hypoxic respiratory failure, GERD. Patient is DNR/DNI. She recently experienced a GLF in September that resulted in a cervical fracture s/p cervical fusion at [facility]. Patient was seen by Dr. Hamilton in 02/2017. Patient is unable to provide history due to condition. Other information obtained from Dr. Hamilton 02/2017 note.: The patient...was previously followed at [facility] for Waldenstrom's macroglobulinemia. She had developed ataxia and was discovered by Dr. Nguyễn on [place] to have a brain tumor, which was ultimately determined to be an ependymoma. This was originally resected in January 2016. She subsequently had good recovery but had residual disease left behind. In addition, she had stable Waldenstrom's macroglobulinemia with IgM, free kappa and M-spike all relatively stable. She was last seen at [facility] in August 2016. She had fell and struck her head at home on October 07, 2016 and went [facility] with a cervical fracture, and ultimately required a cervical fusion. She has been at [facility] since October 30. She had a PEG placement in early January 2017 and was recently hospitalized at [facility] from February 03 to February 06 with pneumonia. 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 She was recommended to undergo adjuvant radiation, however, declined, and in September 2016 was admitted to [facility] with increasing confusion and ataxia. 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 A POST HOLE DIGGER shunt was placed at that time and she was recommended to undergo salvage radiation therapy to the site of recurrence. She received brain radiation starting November 21 and completed on December 31 with an initial volume extending down into the upper portion of spinal canal, followed by boost off the spinal cord extension, primary mass in the 4th ventricle. Total dose to majority of her tumor was said to be 50.4 Gy. For the last several months, she has been very debilitated, but her reports that in the past month she has deteriorated significantly and now spends most of her time in bed and not communicating; she is able to sit at the side of the bed and bear weight on her feet with assistance and communicates with brief words or at most a phrase." Hospital Course Deana Awan is a 81 year old woman with a history of Waldenstrom's macroglobulinemia, depression, previous hypoxic respiratory failure, pneumonia, GERD who presents to the ED via EMS from [facility] with decreased LOC. Currently under treatment for altered mental status. Hospital day #7 Acute Encephalopathy, present on admission. Active - Differential includes aspiration pneumonia/bacterial pneumonia, urinary tract infection, progression of brain cancer, hypercalcemia - CT of brain revealed Enlarging ventricular size bilaterally with slight change in shunt tube position now against the septum pellucidum. [facility] contacted and advised the patient be transferred for shunt failure. The patient' s does want to proceed with any further surgeries. - Patient was to be discharged with hospice. Her has elected not to proceed with further invasive care. Hypercalcemia, present on admission, active -Stopped hydration as patient is to be transitioned to hospice. -Zometa 1 Acute on chronic respiratory failure due to viral pneumonia secondary to parainfluenza virus with the possibility of aspiration pneumonia, present on admission. Active - 1-2 L home O2 Nasal cannula. - scopolamine patch for secretions. - Continued home albuterol nebulizers. - Completed 7 days of Meropenem per infectious disease Fluid overload, not present on admission - Continued IV Lasix as needed for comfort Acute urinary tract infection with E. feacalis, present on admission. Active. - UA straw hazy, large leukocyte esterase, 11-50 white cells, no epithelial. - Whitmore in place - Culture showed enterococcus faecalis sensitive to vancomycin, continue until hospice - Infectious disease consulted. Elevated troponins, present on admission. Active. - Likely demand ischemia. - Medical management only. This was communicated to on 03/01. He expressed his understanding. 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 Stable. - Hemoglobin on admission 9.8 previous values range from 7.6-10.5 from 2003 - 2017. Chronic dysphagia -Restarted tube feeds Patient was deemed safe for discharge she was being transitioned to hospice at a group home facility. She was discharged with pain medications until hospice could open. Exam Vital Signs (Last) Date Time Temp Pulse Resp B/P Pulse Ox O2 Delivery O2 Flow Rate FiO2 03/07/17 12:00 85 20 96 OxyMask 5.00 03/07/17 08:09 37.2 104/61 Exam Gen.: unresponsive, frail, elderly woman, in a hospital bed HEENT: Mouth open, eyes closed, trachea midline. Heart: Regular rate and rhythm, no S3-S4 sounds, no murmur Lungs: Bilateral diffuse crackles and rales, no change from yesterday, somewhat increased work of breathing. Abdomen: Flat, nondistended Extremities: Negative for edema, arms appear swollen Neuro: Not responsive to pain, not responsive to voice. Moves extremities without prompting. Skin: Warm to touch Vasculature: Palpable dorsalis pedis pulse Test 02/28/17 16:45 02/28/17 19:04 03/02/17 20:07 03/04/17 03:45 Prothrombin Time 10.1sec (8.1-12.5) Prothromb Time International Ratio 0.95ratio Lactic Acid Level 1.3mmol/L (0.4-2.0) Magnesium Level 2.2mg/dL (1.6-2.6) Total Creatine Kinase 491U/L (21-215) Urine Color Straw (YELLOW) Urine Appearance Hazy (CLEAR,HAZY) Urine pH 6.0 (5.0-8.0) Urine Specific [place] 1.005 (1.003-1.035) Urine Protein Negativemg/dL (NEG,TRACE) Urine Glucose (UA) Negativemg/dL (NEGATIVE) Urine Ketones Negativemg/dL (NEGATIVE) Urine Occult Blood Large (NEGATIVE) Urine Nitrite Negative (NEGATIVE) Urine Bilirubin Negative (NEGATIVE) Urine Urobilinogen Normalmg/dL (NORMAL) Urine Leukocyte Esterase Large (NEGATIVE) Urine RBC 3-10/hpf (0-2) Urine WBC 11-50/hpf (0-5) Urine Epithelial Cells None/hpf (NONE-MOD) Urine Crystals None seen (NONE SEEN) Urine Bacteria Few/hpf (NONE-FEW) Urine Hyaline Casts None/lpf (NONE) Urine Granular Casts None seen (NONE SEEN) Urine Waxy Casts None seen (NONE SEEN) Urine Red Blood Cell Casts None seen (NONE SEEN) Urine White Blood Cell Casts None seen (NONE SEEN) Urine Mucus None seen (None Seen) Urine Trichomonas None seen (NONE SEEN) Urine Yeast None (NONE SEEN) Urinalysis Comment None Urine Culture Reflexed Indicated Urine Legionella pneumophilia Ag Negative (Negative) Vancomycin Level Trough 12.1mcg/mL Troponin T 0.012ug/L (0.0-0.011) Pro-B-Type Natriuretic Peptide 2038pg/mL (0-738) Test 03/06/17 03:30 03/07/17 03:45 White Blood Count 7.8th/mm3 (3.8-10.1) Red Blood Count 3.42mil/mm3 (3.90-5.20) Hemoglobin 10.5g/dL (12.0-15.6) Hematocrit 33.4% (35.0-46.0) Mean Corpuscular Volume 97.7fL (81-100) Mean Corpuscular Hemoglobin 30.7pg (27.0-35.0) Mean Corpuscular Hemoglobin Concent 31.4% (32.0-37.0) Red Cell Distribution Width 16.4% (12.3-15.4) Platelet Count 197bil/L (150-400) Neutrophils (%) (Auto) 61.7% (40-74) Lymphocytes (%) (Auto) 20.6% (14-46) Monocytes (%) (Auto) 11.4% (4-12) Eosinophils (%) (Auto) 5.1% (0-5) Basophils (%) (Auto) 0.8% (0-3) Sodium Level 148mEq/L (134-144) Potassium Level 3.9mEq/L (3.5-5.2) Chloride Level 110mEq/L (97-108) Carbon Dioxide Level 28mmol/L (18-29) Blood Urea Nitrogen 28mg/dL (8-27) Creatinine 0.89mg/dL (0.57-1.00) Estimat Glomerular Filtration Rate 87mL/min (>59) Glucose Level 168mg/dL (60-99) Calcium Level 10.7mg/dL (8.5-10.1) Phosphorus Level 2.3mg/dL (2.5-4.9) Total Bilirubin 0.3mg/dL (0.0-1.2) Aspartate Amino Transf (AST/SGOT) 10U/L (0-50) Alanine Aminotransferase (ALT/SGPT) 10U/L (0-32) Alkaline Phosphatase 71U/L (25-165) Total Protein 4.8g/dL (6.4-8.4) Albumin 2.8g/dL (3.4-5.0) Parathyroid Hormone (Intact) 20pg/mL (15-65) Procalcitonin 0.29ng/mL (0.00-0.08) Microbiology Results Urine culture: Enterococcus fecalis Respiratory PCR: Parainfluenza 3 Discharge Medications Discharge Medications ([Oxygen]) 3 L NASAL Continuous (Reported) Albuterol Neb Soln (Albuterol Neb Soln) 2.5 Mg/3 Ml Vial.neb 2.5 MG INHALATION QID (Reported) Citalopram Hydrobromide (Celexa) 20 Mg Tablet 20 MG PEG DAILY (Reported) Gabapentin Oral Soln (Gabapentin Oral Soln) 250 Mg/5 Ml Solution 200 MG PEG TID (Reported) Methylphenidate (Methylphenidate) 5 Mg Tablet 5 MG PO BID (Reported) Scopolamine (Transderm-Scop) 1 Each Patch.td72 1 EACH TD Q72HRS (Reported) Sennosides (Senna) 8.6 Mg Tablet 17.2 MG PEG HS (Reported) As needed Acetaminophen Liquid (Acetaminophen Liquid) 160 Mg/5 Ml Solution 640 MG PEG QID PRN PRN For Pain (Reported) Guaifenesin (Liquituss GG) 200 Mg/5 Ml Liquid 10 ML PEG Q4H PRN PRN For Cough ( Reported) Magnesium Hydroxide (Milk of Magnesia) 400 Mg/5 Ml Oral.susp 400 MG PO MORNING PRN PRN For Constipation (Reported) Not to exceed 2X month Morphine Sulfate (Morphine Sulfate) 20 Mg/1 Ml Syringe 5-20 MG PO Q2H PRN PRN For Pain Prescribed by: DONA CABELLO DO Oxycodone (Roxicodone) 5 Mg Tablet 5 MG PEG Q4H PRN PRN For Pain Prescribed by: DONA CABELLO DO Simethicone (Gas-X) 80 Mg Tablet 80 MG PEG TID PRN PRN For Indigestion (Reported ) Followup Plan Disposition: Hospice care at [facility] Discharge Diet: No restrictions Discharge Activity: No restrictions Patient Instructions Patient is discharged to group home facility with hospice. No further antibiotics will be given. Morphine solution will be provided for pain or air hunger. Further pain management per Hospice. For now continue tube feedings until hospice opens. copies to: Vonda Marcial MD; Aditya Nguyễn MD, Viktoriya DO March 08, 2017 18:28 Kwadwo Garcia MD March 09, 2017 07:25
== END 2017-03-07 13:48 | DRG 70 ==
LOC: SED 16:26 → EDUNIT# 16:26 → EDBD 16:26 → MPC 19:50 → PCC 03-03 22:28
PROVIDERS: ADMIT Hospitalist; ATTEND Hospitalist
PROC: 4A033R1 Measurement of Arterial Saturation, Peripheral, Percutaneous Approach (ICD-10-PCS; principal; 2017-03-01)
PROC: 30233N1 Transfusion of Nonautologous Red Blood Cells into Peripheral Vein, Percutaneous Approach (ICD-10-PCS; 2017-03-01)
PROC: 30233N1 Transfusion of Nonautologous Red Blood Cells into Peripheral Vein, Percutaneous Approach (ICD-10-PCS; 2017-03-02)
DX: G93.40 Encephalopathy, unspecified (principal); J96.21 Acute and chronic respiratory failure with hypoxia; J12.2 Parainfluenza virus pneumonia; J69.0 Pneumonitis due to inhalation of food and vomit; N39.0 Urinary tract infection, site not specified; I24.8 Other forms of acute ischemic heart disease; C71.7 Malignant neoplasm of brain stem; J98.11 Atelectasis; T85.02XA Displacement of ventricular intracranial (communicating) shunt, initial encounter; D53.9 Nutritional anemia, unspecified; R13.10 Dysphagia, unspecified; Z85.79 Personal history of other malignant neoplasms of lymphoid, hematopoietic and related tissues; Z66 Do not resuscitate; Z99.81 Dependence on supplemental oxygen; Z93.1 Gastrostomy status; B95.2 Enterococcus as the cause of diseases classified elsewhere; Z98.2 Presence of cerebrospinal fluid drainage device; B97.89 Other viral agents as the cause of diseases classified elsewhere; Z92.3 Personal history of irradiation; G91.4 Hydrocephalus in diseases classified elsewhere; E83.52 Hypercalcemia; E87.70 Fluid overload, unspecified